=== PATIENT | female | born 1945 | race Caucasian/White ===

== ENCOUNTER 2016-12-26 17:52 | Inpatient (IN) | payer MEDICARE ==
[~2016-12-26 17:52] MED LIST: ISOVUE-370 76%-LOCM 1 ML ONE
[2016-12-26] MEDS ORDERED: Lorazepam 2 MG/ML VIAL ONE (18:00)
[2016-12-26 18:27] LABS: #Eosinphils 0.1 thou/uL (0.0-0.7); #Lymphocytes 0.7 thou/uL (1.20-3.40); #Monocytes 0.4 thou/uL (0.11-0.59); #Neutrophils 4.3 thou/uL (1.40-6.50); %Basophils 0.9 % (0.0-1.0); %Eosinophils 1.1 % (0.0-10.0); %Lymphocytes 12.9 % (21.0-51.0); Hematocrit 40.5 % (36.0-47.0); Mean Platelet Volume 6.6 fL (7.4-10.4); White Blood Cell (WBC) Count 5.5 thou/uL (4.8-10.8)
[2016-12-26 18:32] LABS: PTT 26.3 SEC (22.9-36.1); Prothrombin Time 13.4 SEC (12.0-14.7)
[2016-12-26 18:46] LABS: ALT (SGPT) 36 U/L (8-55); AST (SGOT) 39 U/L (5-34); Alkaline Phosphatase 106 U/L (40-150); Anion Gap 17 mmol/L (10-20); BUN (Urea Nitrogen) Less than 4 mg/dL (9.8-20.1); Bilirubin, Total 0.3 mg/dL (0.2-1.2); Calc. Creatinine Clearance 0 mL/min (70-130); Calcium 9.4 mg/dL (7.8-10.44); Carbon Dioxide 24 mmol/L (23-31); Chloride 87 mmol/L (98-107); Estimated GFR-MDRD Greater than 90; Globulin 2.8 g/dL (2.4-3.5); Protein, Total 7.3 g/dL (6.0-8.3)
--- NOTE | 2016-12-26 18:52 | CT ---
CT BRAIN WITHOUT CONTRAST 12/26/16 HISTORY: Seizure, altered mental status. FINDINGS: Comparison made with the exam of 12/18/14. No evidence of acute infarct, hemorrhage, midline shift or abnormal extra-axial fluid collections ar e seen. The ventricular size is stable and the basilar cisterns patent. Bilateral basal ganglia calc ifications again seen. The bony calvarium is intact. The visualized paranasal sinuses and mastoid ai r cells are well aerated. IMPRESSION: No CT evidence of acute intracranial process. Discussed over the telephone with ER physician Dr. Lucio Munoz at 6:28 p.m. POS: [facility]
--- NOTE | 2016-12-26 19:21 | CT ---
EXAM: CT ANGIOGRAM OF THE HEAD CT ANGIOGRAM OF THE NECK CT PERFUSION 12/26/16 COMPARISON: CT angiogram neck 12/21/14. TECHNIQUE: CT angiogram of the head and neck are performed in the axial plane. Sagittal and coronal three dimen sional reformatted images are submitted for interpretation. CT perfusion imaging is performed in the axial plane. FINDINGS: POSTCONTRAST HEAD CT: Cortical pro-white matter differentiation appears to be preserved. There is age appropriate atrophy . Chronic small vessel ischemic changes of the white matter are identified. No evidence of hydroceph alus. The visualized aerodigestive tract is patent. No definite mucosal abnormality. Epiglottis has a norm al caliber. Pre-epiglottic fat is preserved. Symmetric attenuation of the sternocleidomastoid muscles. Symmetric attenuation of the parotid and s ubmandibular glands. Thyroid gland is unremarkable. Varying degrees of central canal stenosis and foraminal narrowing on the basis of degenerative hirsch e. Evaluation is limited by technique. Chronic change in lung apices are noted. Upper mediastinum is unremarkable. CT ANGIOGRAM: There is atherosclerosis of the aortic arch. RIGHT CAROTID: The right carotid artery origin is unremarkable. The right common carotid artery, carotid bifurcatio n, have appropriate enhancement and luminal diameter. There is short segment critical stenosis invol ving the right carotid bifurcation. Distal to the stenosis, there is a markedly diminutive right int ernal carotid artery, similar to the previous examination. LEFT CAROTID: The left carotid artery origin has appropriate enhancement and luminal diameter. There is atheroscle rotic disease without significant stenosis in the left common carotid artery and carotid bifurcation . Based on NASCET criteria, there is no significant stenosis of the left internal carotid artery. Ev aluation is slightly limited by motion degradation. Atherosclerotic plaque is identified. The right vertebral artery is patent at its origin and throughout its course in the neck. The origin of the left vertebral artery appears to have severe stenosis. The proximal and mid left vertebral a rtery are somewhat diminutive with short segments of moderate stenosis. There is lack of contrast in the left vertebral artery at approximately the C5 level suggesting short segment severe stenosis. R ight vertebral artery is dominant. There is redemonstration of severe stenosis involving the origin of the left subclavian artery. Additional severe stenosis is noted at the origin of the left vertebr al artery. There is suggestion of moderate stenosis involving the right subclavian artery. CT ANGIOGRAM OF THE HEAD: The diminutive right internal carotid artery appears to have significant stenosis with questionable occlusion in the distal cavernous segment. However, the right paraclinoid segment and right carotid terminus appear to have appropriate enhancement and luminal diameter. These vessels may be supplied by an anterior communicating artery as well as posterior communicating artery. The right and left M1 segments appear to have symmetric enhancement and luminal diameter. The right A1 segment is diminut mannie, likely congenital. Proximal A2 segments are unremarkable. Proximal MCA branches are unremarkabl e. Note, there does appear to be overall decrease in vessels along the posterior left Sylvian region and posterior left temporal region. Left and right PICC artery origins are unremarkable. Both vertebral arteries supply a normal appeari ng basilar artery. The left and right P1 segments have symmetric enhancement and luminal diameter. CT PERFUSION: There is no evidence of an increased mean transit time in the left MCA distribution. There is no dexter dence of decreased blood flow or decreased blood volume. IMPRESSION: 1. Significant stenosis involving the carotid and vertebral arteries as detailed above. The deg ree of stenosis is similar to the examination from 12/21/14. Additional arthrosclerotic disease in th e subclavian artery is noted. 2. Significant stenosis of the distal right cavernous carotid artery; however, the right paracl inoid segment of the right M1 segment appears to have appropriate luminal diameter enhancement likel y due to collateral flow from a patent anterior communicating artery and posterior communicating art inderjit. 3. Decrease in the overall vessels in the left MCA distribution. However, there is no CT perfus ion evidence of ischemia or completed infarct. Further interrogation with brain MRI utilizing diffus ion weighted imaging may be beneficial. 4. Results of the study discussed with Dr. Munoz, 12/26/16 at 6:52 p.m. Code CR POS: [facility]
[2016-12-26 19:45] LABS: Bilirubin Negative (Negative); Blood, Urine Negative (Negative); Glucose, Urine (Dipstick) Negative (Negative); Ketone, Urine Negative (Negative); Nitrite Negative (Negative); Protein, Urine (Dipstick) Negative (Neg-Trace); Urobilinogen 0.2 mg/dL (0.2-1.0)
[2016-12-26 19:55] LABS: Amphetamine Not Detected (NotDetected); Methadone Not Detected (NotDetected); Methamphetamine Not Detected (NotDetected)
[2016-12-26] MEDS ORDERED: Fosphenytoin Sodium 1,500 MG in Sodium Chloride 0.9% 50 ML IVPB ONE (20:15)
[2016-12-26] MEDS ORDERED: DOPamine 400 MG/D5W 250 ML 0 ML ONE (23:11)
[2016-12-26] MEDS ORDERED: Norepinephrine 8 MG/0.9% NS 250 ML ONE (23:42)
[2016-12-27] MEDS ORDERED: Ondansetron ODT 4 MG TAB SL PRN (00:25)
[2016-12-27] MEDS ORDERED: Acetaminophen 325 MG TAB PO PRN (00:25)
[2016-12-27] MEDS ORDERED: Ondansetron HCl/PF 4 MG/2 ML Vial IVP PRN (00:25)
[2016-12-27] MEDS ORDERED: Norepinephrine 8 MG/250 ML BAG IVPB PRN (00:28)
[2016-12-27] MEDS ORDERED: Sodium Chloride 0.9% 1,000 ML IV SCH ×3 (00:30→15:45)
[2016-12-27] MEDS ORDERED: Ondansetron HCl/PF 4 MG/2 ML Vial SLOW IVP PRN (00:31)
[2016-12-27] MEDS ORDERED: Insulin Regular 300 UNITS/3 ML VIAL SC PRN (00:44)
[2016-12-27] MEDS ORDERED: Dextrose 5% in Water 1,000 ML IV PRN (00:44)
[2016-12-27] MEDS ORDERED: Dextrose 50% Abboject 50 ML SYRINGE IVP PRN (00:44)
[2016-12-27 01:02] VITALS: BMI 21.4
[2016-12-27 04:10] LABS: #Lymphocytes 1.1 thou/uL (1.20-3.40); #Monocytes 1.1 thou/uL (0.11-0.59); #Neutrophils 8.6 thou/uL (1.40-6.50); %Basophils 0.4 % (0.0-1.0); %Eosinophils 0.2 % (0.0-10.0); %Lymphocytes 9.9 % (21.0-51.0); %Monocytes 9.7 % (0.0-10.0); Hematocrit 41.5 % (36.0-47.0); Red Blood Cell (RBC) Count 4.41 mill/uL (4.20-5.40); White Blood Cell (WBC) Count 10.8 thou/uL (4.8-10.8)
[2016-12-27 04:34] LABS: ALT (SGPT) 45 U/L (8-55); AST (SGOT) 61 U/L (5-34); Alkaline Phosphatase 92 U/L (40-150); Anion Gap 14 mmol/L (10-20); BUN (Urea Nitrogen) Less than 4 mg/dL (9.8-20.1); Bilirubin, Total 0.5 mg/dL (0.2-1.2); Calc. Creatinine Clearance 78 mL/min (70-130); Calcium 8.2 mg/dL (7.8-10.44); Carbon Dioxide 19 mmol/L (23-31); Chloride 99 mmol/L (98-107); Estimated GFR-MDRD Greater than 90; Globulin 2.6 g/dL (2.4-3.5); Protein, Total 6.6 g/dL (6.0-8.3)
[2016-12-27] MEDS: Levothyroxine Sodium 125 MCG TAB PO SCH (05:04)
[2016-12-27 07:04] LABS: Hemoglobin A1c 5.1 % (4.0-6.0)
[2016-12-27 07:09] LABS: Troponin I 0.118 ng/mL (< 0.028)
--- NOTE | 2016-12-27 07:19 | HP ---
REASON FOR ADMISSION: Seizures. HISTORY OF PRESENT ILLNESS: This is a pleasant 71-year-old female with a history of multiple medica l problems to include anxiety, hyponatremia, and diabetes. She also has a history of seizures and t his has been taken care of by Dr. Parish. The family is at bedside and the reason she was brought in was, the patient became confused and shor tly after that she started having episodes, where she could not talk when her family was asking the question. She did not have loss of bowel or bladder. Apparently, she has 1-2 seizures a month acco rding to the family. She has never seen a urologist according to the family and states that Dr. Abhi alex diagnosed her seizures and has been taking care of that. CVA was ruled out upon evaluation in e emergency room. Unfortunately, the patient's blood pressure was low in the 80s despite having IV fluid challenge and therefore, a Levophed drip had to be initiated. She will be transferred to ICU for further care. PAST MEDICAL HISTORY: 1. Hyponatremia. 2. General anxiety disorder. 3. Bilateral conjunctivitis. 4. Diabetes. 5. Hypotension. 6. Hyperlipidemia. 7. Allergies. 8. GERD. 9. Osteoporosis. 10. Hypothyroidism. 11. She also had a history of congestive heart failure. ALLERGIES: SULFA. MEDICATIONS: Full list of her medication is unknown. FAMILY HISTORY: Noncontributory. SOCIAL HISTORY: She does not smoke. She does not drink alcohol. REVIEW OF SYSTEMS: General: Admits to weakness, fatigue, no fever or chills. HEENT: No diplopia, amaurosis fugax, tinnitus, sore throat, or hoarseness. Cardiovascular: No chest, arm, or back irina n. Pulmonary: No PE, cough, or hemoptysis. Gastrointestinal: No GI bleed, constipation, diarrhea . Genitourinary: No dysuria, nocturia, oliguria, or polyuria. Endocrine: No polyphagia, polydips ia, or heat or cold intolerance. Musculoskeletal: Admits to arthralgias. No lupus or myopathy. N eurologic: Does have history of CVA and history of seizure. All systems are negative. PHYSICAL EXAMINATION: GENERAL: Pleasant female, who appears to be in distress. She is awake, alert, and oriented to pers on, place, and time. VITAL SIGNS: Her blood pressure is in the 80s, Levophed was just started. Her pulse is 70. She is afebrile. HEENT: PERRLA. Sclerae not icteric with no arcus senilis or xanthelasma. NECK: Supple with no increased JVP or carotid bruit. Carotid had good upstroke with no thyromegaly . COR: Regular rate and rhythm. CHEST: Symmetrical. Clear to auscultation and percussion. ABDOMEN: Soft, nontender with normoactive bowel sounds. No bruit or organomegaly. EXTREMITIES: No edema or cyanosis. She had palpable pedal pulses. SKIN: There is no evidence of ulcers, lesion, or rash. NEURO: She is awake, alert, and oriented to person, place, and time. LABORATORY DATA: Her lab showed a normal CBC. Her sodium is 124. Her glucose is 120. Her prolact in is 70.5. Her UA is negative. Her CT is negative of her brain. She also had a CTA, which showed no CVA. It did show significant stenosis involving the carotid and vertebral arteries, no change f rom 2014. ASSESSMENT: 1. Seizures. 2. Hyponatremia. 3. Hypotension. 4. History of cerebrovascular accident. 5. Severe anxiety disorder. 6. Diabetes. 7. Hypothyroidism. 8. Depression. 9. Multiple medical problems. PLAN: 1. The patient will be admitted to ICU where (06:00) will be asked to see the patient in [facility] sultation. Also, neurologist was called to see the patient tomorrow morning. We will also order EE G. 2. We will continue Levophed to keep her systolic blood pressure greater than 90. 3. We will resume home medications once we are aware of those medications; however, I do not know i f she takes Xanax and something for sleep, but will stop, would not resume that at this time. 4. We will give Zofran p.r.n. for nausea. 5. We will follow up with lab tomorrow morning. All questions answered to patient and family's satisfaction. This is FABIAN Miller, dictating for Renny Parish M.D.
--- NOTE | 2016-12-27 07:48 | RAD ---
CHEST 1 VIEW: HISTORY: Chest pain. COMPARISON: 12/22/14. FINDINGS: Cardiac silhouette is magnified by projection. Pulmonary vasculature is unremarkable. Mediastinum is midline with aortic calcification and a multileaf left subclavian cardiac electronic device. Mil d atelectasis at the right lung base is less pronounced than on the prior exam. No lobar consolidat ion or pneumothorax are apparent. residential monitor leads overlie the chest. IMPRESSION: No active cardiopulmonary abnormalities are demonstrated. POS: [facility]
[2016-12-27 08:15] LABS: Troponin I 0.145 ng/mL (< 0.028)
[2016-12-27] MEDS ORDERED: FLU VACC TS2017-18 (>65YR) 0.5 ML SYRINGE IM ONE (09:00)
[2016-12-27] MEDS: Sodium Chloride 0.9% 1,000 ML IV SCH ×4 (09:04→14:27)
[2016-12-27] MEDS ORDERED: Multivitamins, Adult 10 ML in Sodium Chloride 0.9% 500 ML IV SCH ×2 (11:30)
[2016-12-27] MEDS: Lorazepam 2 MG/ML VIAL SLOW IVP PRN (11:43)
--- NOTE | 2016-12-27 12:12 | CON ---
DATE OF CONSULTATION: 12/27/2016 NEUROLOGY CONSULTATION REFERRING PHYSICIAN: Dr. Parish. IMPRESSION: Recurrent seizures with subtherapeutic Dilantin. PLAN: Dilantin 300 mg per day. HISTORY: Ms. Sorensen is a 71-year-old woman who was admitted after having a seizure yesterday. She r eportedly has had seizures in the past, the last one occurred about 2 weeks ago. Her Dilantin level was subtherapeutic. She had a CT scan of the brain done last night which was unremarkable. She tiwari s otherwise not had any further seizure activity. PHYSICAL EXAMINATION: VITAL SIGNS: Show blood pressure of 85/46, pulse 77 and saturations 95%. NEUROLOGIC: Shows her to have fluent, clear speech, although she is incessantly talking and will no t cooperate in appropriate fashion. Face appeared to be symmetric. Tone appeared to be symmetric. No abnormal movements were seen. I agree with your plan of treatment.
[2016-12-27] MEDS: Thiamine HCl 200 MG/2 ML VIAL IM SCH (13:01)
[2016-12-27] MEDS ORDERED: Albumin 25% 25 GM/100 ML BOT IVPB SCH (14:54)
--- NOTE | 2016-12-27 17:09 | CON ---
DATE OF CONSULTATION: 12/27/2016 HISTORY OF PRESENT ILLNESS: Ms. Sorensen is a 71-year-old female with a history of seizure disorder. She has actually been in the ICU and I have seen her in the past with seizures. She has been hypotensive since admission and was placed on pressors in the emergency room. PAST MEDICAL HISTORY: 1. Remarkable for psychogenic polydipsia, anxiety, diabetes, lipid disorder, reflux disease, osteop orosis. 2. History of tobacco use. 3. History of daily beer drinking, but her says she does drink more than 2 to 3 beers a day . 4. History of severe anxiety. 5. History of lipid disorder. 6. History of intubation in the past, multiple times. 7. History of a . 8. Distant history of heavy alcohol and tobacco use. 9. History of multiple [facility] admissions in the past. There are no [facility]/psychiatrist notes in the ol d or new medical records to help me identify what her psychiatric diagnosis was. FAMILY HISTORY: Negative for lung disease at an early age. REVIEW OF SYSTEMS: Not reliably obtainable at this point in time. PHYSICAL EXAMINATION: VITAL SIGNS: Blood pressures are in the 80s for the most part, heart rate in the 70s. She is in si nus rhythm. HEENT: Pupils are equal. Sclerae are anicteric. She has pressured speech. NECK: Supple. She has no lymphadenopathy. LUNGS: She has equal and clear breath sounds. HEART: Regular rhythm. ABDOMEN: Soft and nontender. EXTREMITIES: Without asymmetry. LABORATORY DATA: White count 10.8, hemoglobin 13.8, and platelets 320. Sodium 128, potassium 4, ch loride 99, bicarbonate 19, BUN less than 4, creatinine 0.5, glucose 166, AST 61, ALT 45, albumin is 4. Urinalysis was unremarkable. No positive cultures are reported yet. IMPRESSION: 1. Hypotension with adrenal insufficiency, needs to be ruled out. 2. History of seizure with seizure disorder reportedly. 3. Mild hyponatremia, most likely psychogenic she has had. Sodium is as low as 117 back in 2015 maya pposedly drug-induced cause is also in the differential. PLAN: Continue supportive care. When she is off pressors, she can transfer out of the critical car e unit. Albumin will be added. She will continue with Valium. Cortisol has been ordered stat.
[2016-12-27] MEDS: ALPRAZolam 0.5 MG TAB PO SCH (19:46)
[2016-12-28] MEDS: Sodium Chloride 0.9% 1,000 ML IV SCH ×3 (04:30→23:30)
[2016-12-28 04:59] LABS: #Lymphocytes 0.6 thou/uL (1.20-3.40); #Monocytes 0.5 thou/uL (0.11-0.59); #Neutrophils 3.5 thou/uL (1.40-6.50); %Basophils 0.9 % (0.0-1.0); %Eosinophils 0.4 % (0.0-10.0); %Lymphocytes 12.4 % (21.0-51.0); %Monocytes 10.4 % (0.0-10.0); Hematocrit 34.6 % (36.0-47.0); Mean Platelet Volume 7.2 fL (7.4-10.4); Red Blood Cell (RBC) Count 3.65 mill/uL (4.20-5.40); White Blood Cell (WBC) Count 4.6 thou/uL (4.8-10.8)
[2016-12-28 05:16] LABS: Anion Gap 11 mmol/L (10-20); BUN (Urea Nitrogen) Less than 4 mg/dL (9.8-20.1); Calc. Creatinine Clearance 112 mL/min (70-130); Calcium 7.8 mg/dL (7.8-10.44); Carbon Dioxide 25 mmol/L (23-31); Chloride 96 mmol/L (98-107); Dilantin 39.1 ug/mL (10.0-20.0); Estimated GFR-MDRD Greater than 90
[2016-12-28] MEDS ORDERED: Potassium Chloride 20 MEQ in Premix Bag 1 BAG IVPB SCH (06:00)
[2016-12-28] MEDS: Levothyroxine Sodium 125 MCG TAB PO SCH (06:24)
[2016-12-28] MEDS ORDERED: Aripiprazole 10 MG TAB PO SCH (08:15)
[2016-12-28] MEDS: Multivitamins, Adult 10 ML in Sodium Chloride 0.9% 500 ML IV SCH ×2 (11:05)
[2016-12-28] MEDS: Folic Acid 1 MG TAB PO SCH (11:06)
[2016-12-28] MEDS: ALPRAZolam 0.5 MG TAB PO SCH ×2 (11:06→20:16)
[2016-12-28] MEDS: Thiamine HCl 200 MG/2 ML VIAL IM SCH (11:07)
--- NOTE | 2016-12-28 11:18 | PQF ---
JV CHASE MICHAEL E MD [id number] CLINICAL DOCUMENTATION IMPROVEMENT CLARIFICATION FORM: ICD-10 Updated PLEASE DO AN ADDENDUM TO THE PROGRESS NOTE WITH ANY DOCUMENTATION UPDATES OR ADDITIONS AND CARRY THROUGH TO DC SUMMARY. THANK YOU. DATE: 12-28-16 ATTN: DR. VIDAL CRUZ Please exercise your independent, professional judgment in responding to the clarification form. Clinical indicators are provided on the bottom of this form for your review Please check appropriate box: [ x ] Demand Ischemia [ ] NSTEMI type II [ ] Unable to determine [ ] Insignificant lab value For continuity of documentation, please document condition throughout progress notes and discharge summary. Thank You. CLINICAL INDICATORS - SIGNS / SYMPTOMS/ LABS are present in the medical record: Lab Results: TROPONIN I 10-8 @ 0400 0.118 @ 0643 0.145 @ 0946 0.130 RISK FACTORS ER: HYPONATREMIA W/ SEIZURES - PROLONGED POSTICTAL PHASE BP SBP: 54 - 154 DBP 40 - 112 H&P: HYPOTENSION TREATMENT CPOE: Series of electrolyte labs ICU/CARDIAC MONITORING (12-26 - TO DATE) IVF W/ MULTIVITAMINS AND NS LEVOPHED TO KEEP SBP >90 THANK YOU, RAF[employer] (This form is maintained as a part of the permanent medical record) 2015 [employer]. All Rights Reserved Rafia Sexton RN, BS [email or web address]
--- NOTE | 2016-12-28 12:32 | PRG ---
DATE OF SERVICE: 12/28/2016 SUBJECTIVE: Ms. Sorensen has no complaints today. She says that she is feeling better. PHYSICAL EXAMINATION: VITAL SIGNS: Her vital signs have been stable. She is afebrile, heart rate 80, respiratory rate 21 , and blood pressure 107/70. LUNGS: Clear. HEART: Regular rhythm. ABDOMEN: Soft. LABORATORY DATA: White count 4.6, hemoglobin 11.7, platelets 196,000. Sodium 129, potassium 2.7, chloride 96, bicarb 25, BUN less than 4, creatinine less than 0.4. IMPRESSION: 1. Seizures with an underlying seizure disorder. 2. Hyponatremia, which I suspect it is an incidental finding and not the cause of her seizures. Sh mae has a history of psychogenic polydipsia. She is stable to transfer out of the Critical Care Unit in my opinion. I will sign off.
[2016-12-28] MEDS: Lorazepam 2 MG/ML VIAL SLOW IVP PRN ×2 (14:09→23:10)
[2016-12-28] MEDS: Aripiprazole 10 MG TAB PO SCH (20:17)
[2016-12-29] MEDS: Lorazepam 2 MG/ML VIAL SLOW IVP PRN (03:18)
[2016-12-29 04:29] LABS: #Lymphocytes 0.9 thou/uL (1.20-3.40); #Monocytes 0.6 thou/uL (0.11-0.59); #Neutrophils 8.6 thou/uL (1.40-6.50); %Basophils 0.1 % (0.0-1.0); %Eosinophils 0.4 % (0.0-10.0); %Lymphocytes 8.7 % (21.0-51.0); %Monocytes 6.3 % (0.0-10.0); Hematocrit 35.1 % (36.0-47.0); Red Blood Cell (RBC) Count 3.69 mill/uL (4.20-5.40); White Blood Cell (WBC) Count 10.2 thou/uL (4.8-10.8)
[2016-12-29] MEDS: Levothyroxine Sodium 125 MCG TAB PO SCH (05:24)
[2016-12-29 05:46] LABS: Anion Gap 13 mmol/L (10-20); BUN (Urea Nitrogen) Less than 4 mg/dL (9.8-20.1); Calc. Creatinine Clearance 107 mL/min (70-130); Calcium 8.3 mg/dL (7.8-10.44); Carbon Dioxide 27 mmol/L (23-31); Chloride 89 mmol/L (98-107); Estimated GFR-MDRD Greater than 90
[2016-12-29] MEDS ORDERED: Potassium Chloride 20 MEQ in Sodium Chloride 0.9% 250 ML 250 ML IVPB SCH (07:00)
[2016-12-29] MEDS: ALPRAZolam 0.5 MG TAB PO SCH ×2 (08:11→20:30)
[2016-12-29] MEDS: Folic Acid 1 MG TAB PO SCH (08:12)
--- NOTE | 2016-12-29 08:12 | PRG ---
DATE OF SERVICE: 12/29/2016 The patient is awake. She is ready to go home. Her is ready for her to go home also, and s he has been \\\\"cantankerous\\\\". PHYSICAL EXAMINATION: GENERAL: She is awake, alert, and oriented. She is on IV fluids. VITAL SIGNS: Her blood pressure is 108/70, pulse 90, respirations 18. She is afebrile. NECK: Supple with no increased JVP or carotid bruit. Carotid had good upstroke with no thyromegaly . COR: Regular rate and rhythm. CHEST: Symmetrical. Clear to auscultation and percussion. ABDOMEN: Soft, nontender with normoactive bowel sounds. There is no bruit or organomegaly. EXTREMITIES: No edema or cyanosis. She had palpable pedal pulses. SKIN: There is no evidence of ulceration lesion, or rash. NEUROLOGIC: She is awake, alert, and oriented to person, place, and time. LABORATORY DATA: Her CBC showed white blood cells 10.2, her H\\T\\H is 11.9 and 35.1, her platelet is 192. Her sodium remains low at 126, which is worse than yesterday. Her potassium is still low at 2.5. ASSESSMENT: 1. Seizures. 2. Hyponatremia. 3. History of psychogenic polydipsia. 4. Hypotension, improved. 5. Hypokalemia. 6. General anxiety disorder. PLAN: 1. We will check a CMP in the morning. 2. We will replace potassium with K-riders. 3. We will check a Dilantin level in the morning. 4. We will hold Dilantin. 5. We will ask physical therapy to evaluate and encourage the patient to get out of bed. I have spoken with the patient and the family at length. Will not be able to go home until her sodi um is closer to 130. The patient verbalized understanding and all questions answered to her satisfa ction.
[2016-12-29] MEDS: Thiamine HCl 200 MG/2 ML VIAL IM SCH (13:09)
[2016-12-29] MEDS: Multivitamins, Adult 10 ML in Sodium Chloride 0.9% 500 ML IV SCH ×2 (13:10)
[2016-12-29] MEDS: Sodium Chloride 0.9% 1,000 ML IV SCH ×2 (16:57→23:05)
[2016-12-29] MEDS: Aripiprazole 10 MG TAB PO SCH (20:29)
[2016-12-30] MEDS: Lorazepam 2 MG/ML VIAL SLOW IVP PRN (03:51)
[2016-12-30 06:01] LABS: ALT (SGPT) 25 U/L (8-55); AST (SGOT) 30 U/L (5-34); Alkaline Phosphatase 86 U/L (40-150); Anion Gap 13 mmol/L (10-20); BUN (Urea Nitrogen) Less than 4 mg/dL (9.8-20.1); Bilirubin, Total 0.6 mg/dL (0.2-1.2); Calc. Creatinine Clearance 96 mL/min (70-130); Calcium 8.7 mg/dL (7.8-10.44); Carbon Dioxide 30 mmol/L (23-31); Chloride 91 mmol/L (98-107); Estimated GFR-MDRD Greater than 90; Globulin 2.4 g/dL (2.4-3.5); Protein, Total 6.1 g/dL (6.0-8.3)
[2016-12-30] MEDS: Levothyroxine Sodium 125 MCG TAB PO SCH (06:17)
[2016-12-30] MEDS: Sodium Chloride 0.9% 1,000 ML IV SCH ×2 (06:18→15:53)
[2016-12-30] MEDS: ALPRAZolam 0.5 MG TAB PO SCH ×2 (07:50→20:21)
[2016-12-30] MEDS: Folic Acid 1 MG TAB PO SCH (07:50)
[2016-12-30] MEDS: Potassium Chloride 20 MEQ TAB PO SCH ×3 (08:50→20:21)
[2016-12-30] MEDS: Multivitamins, Adult 10 ML in Sodium Chloride 0.9% 500 ML IV SCH ×2 (08:51)
[2016-12-30] MEDS: Aripiprazole 10 MG TAB PO SCH (20:21)
[2016-12-31] MEDS: Lorazepam 2 MG/ML VIAL SLOW IVP PRN (01:28)
[2016-12-31] MEDS: Sodium Chloride 0.9% 1,000 ML IV SCH ×3 (01:36→20:43)
[2016-12-31 06:12] LABS: Anion Gap 11 mmol/L (10-20); BUN (Urea Nitrogen) Less than 4 mg/dL (9.8-20.1); Calc. Creatinine Clearance 99 mL/min (70-130); Calcium 8.7 mg/dL (7.8-10.44); Carbon Dioxide 32 mmol/L (23-31); Chloride 94 mmol/L (98-107); Dilantin 9.6 ug/mL (10.0-20.0); Estimated GFR-MDRD Greater than 90
[2016-12-31] MEDS: Levothyroxine Sodium 125 MCG TAB PO SCH (06:13)
[2016-12-31] MEDS: Folic Acid 1 MG TAB PO SCH (08:10)
[2016-12-31] MEDS: ALPRAZolam 0.5 MG TAB PO SCH ×2 (08:10→20:31)
[2016-12-31] MEDS: Multivitamins, Adult 10 ML in Sodium Chloride 0.9% 500 ML IV SCH ×2 (08:26)
[2016-12-31] MEDS: Potassium Chloride 20 MEQ TAB PO SCH ×2 (08:33→20:31)
[2016-12-31] MEDS: Potassium Chloride 20 MEQ in Premix Bag 1 BAG IVPB SCH ×2 (08:34→10:40)
--- NOTE | 2016-12-31 08:57 | PRG ---
DATE OF SERVICE: 12/31/2016 SUBJECTIVE: The patient had a good night. She is quite upset this morning as I told her she cannot go home as her potassium is still critically low at 2.6. I even spoke with Yong and the patient telling them all of the risk of low potassium and if she goes home, this could be the consequences. I did also let her know that some of her medications she is on cause low potassium. I did also go over with the patient and that she can no longer be drinking \\\\"2 beers a day plus wine, pl us drinking all of this water\\\\". The is very adamant that this is not why she has low sodi um. Upon evaluation, she is awake. She is agitated. She is being very rude and being disrespectfu l, telling me to leave the room. PHYSICAL EXAMINATION: VITAL SIGNS: Blood pressure is 92/64, pulse 88, respirations 16, temperature 97.6. NECK: Supple with no increased JVP or carotid bruit. Carotid had good upstroke with no thyromegaly . COR: Regular rate and rhythm. CHEST: Symmetrical. Clear to auscultation and percussion. ABDOMEN: Soft, nontender with normoactive bowel sounds. There is no bruit or organomegaly. EXTREMITIES: No edema or cyanosis. She had palpable pedal pulses. SKIN: There is no evidence of ulcer lesion, or rash. NEUROLOGIC: She is awake, alert, and oriented to person, place, and time. LABORATORY: Sodium 134, potassium 2.7. BNP is 799. However, there is no inclination of congestive heart failure on examination. ASSESSMENT: 1. General anxiety disorder. 2. Hyponatremia, improved. 3. Hypokalemia. 4. History of seizures. PLAN: I spoke at length again, as mentioned above, to the and the patient. The patient aga in is very ugly, again telling me to leave the room and that \\\\"I can have her \\\\" and said t hat the also said that he does not believe that all these problems that I told him would cau se her low sodium, that Dr. Parish told him that she could drink this much in the past?. We will keep the patient here and replenish her potassium by increasing her potassium oral dose. I have also spoken with the patient at length regarding limiting her fluid intake. According to the mirella lopez she is not following her limitations on her fluid restriction. She is also not allowing us to check her blood sugars as well. The patient was told she could leave AMA if she felt like she need ed to do so, but again I did let her know about to warnings of having a low potassium. We will foll ow up with lab in the morning. We will discontinue her Abilify, will change her Celexa 20 mg daily and start her on Seroquel 50 mg at night per Dr. Parish recommendations.
[2017-01-01] MEDS: Levothyroxine Sodium 125 MCG TAB PO SCH (04:51)
[2017-01-01 06:24] LABS: ALT (SGPT) 39 U/L (8-55); AST (SGOT) 48 U/L (5-34); Alkaline Phosphatase 102 U/L (40-150); Anion Gap 12 mmol/L (10-20); BUN (Urea Nitrogen) Less than 4 mg/dL (9.8-20.1); Bilirubin, Total 0.5 mg/dL (0.2-1.2); Calc. Creatinine Clearance 88 mL/min (70-130); Calcium 9.9 mg/dL (7.8-10.44); Carbon Dioxide 29 mmol/L (23-31); Chloride 95 mmol/L (98-107); Estimated GFR-MDRD Greater than 90; Globulin 2.8 g/dL (2.4-3.5); Protein, Total 6.9 g/dL (6.0-8.3)
[2017-01-01 08:18] VITALS: BP 138/92; TEMP 98.3
[2017-01-01] MEDS ORDERED: Potassium Chloride 20 MEQ TAB PO SCH (09:00)
--- NOTE | 2017-01-01 09:11 | DIS ---
CHIEF COMPLAINT ON ADMISSION: Seizure activity, hyponatremia and anxiety. History and physical have been dictated. I will resume from there. HOSPITAL COURSE: The patient was admitted to ICU where IV fluid supplementation with sodium was beg un. The patient exhibited altered mental status in ICU with extreme agitation and confabulation, co nstant talking nonsensical. Her vital signs remained low systolically in the ICU requiring Levophed supplementation. Dr. Riggs saw the patient in consultation and agreed with the treatment which i ncluded coverage for what may be DTs, i.e., thiamine, folate, Ativan p.r.n. A central line was plac ed because of low blood pressure and to monitor that. The patient slowly began to improve. Dr. Jorge garcia also saw the patient in consultation and felt that the low sodium was probably psychogenic polydi psia. Her Dilantin level was noted to be subtherapeutic, which was an obvious reason for her seizur e activity. She was loaded with Dilantin which then quickly became toxic requiring it to be held fo r the remainder of the hospitalization. Adrenal insufficiency was ruled out with a prolactin that c jacqueline back at 70 with a cortisol level that came back at 19. It was noted that her prolactin level wa s elevated at 70.75. The high prolactin was confirmatory of prior seizure activity. During the acu te phase of her initial hospitalization, she had indeterminate elevated troponins. The patient's so dium was slow to respond to fluid restriction and normal saline IV hydration becoming 128 on 017 and 129 on 12/28/2016, becoming 131 to 134 prior to discharge, the patient was placed on Abilify for her altered mental status and to calm her severe anxiety. This resulted in severe drops in her potassium level which failed to respond until Abilify was discontinued. On 12/28/2016 she was much more alert, able to answer questions blood pressure was up to 106/75. She was transferred out of [facility] to a medical bed and as mentioned previously, Dilantin level become toxic at 39. The Dilantin wa s then held. We kept supplementing her potassium in an effort to get that up. There was no further seizure activity noted. By 12/30/2016 she continued to feel much improved, potassium has remained l ow because of Abilify and that has been discontinued. It was, however, discontinued later that day replaced with Seroquel 50 mg at bedtime. The patient also responded to the thiamine therapy and onc e the Abilify was discontinued her potassium level was 4.1 prior to discharge. On the day of discha rge, she is alert, agitated, but much more mentally with it and is stable to be discharged home. So dium level is now up to 132. The patient and her have both been argumentative about the tato ology of the sodium level be low, arguing that the beer and wine plus excessive water intake have no t contribute to this. We have continued to consumer credit counselor them on that and also she will be reminded to ta ke her Dilantin regularly so it will stay in a therapeutic level that will minimize the chance of se izures. Because there is an element of Wernicke's encephalopathy, we will continue the thiamine 100 mg daily, along with multiple vitamins daily. The Seroquel will be continued to help her with her sleep at night, her anxiety disorder and her depression. She medicates with alcohol to help control her anxiety. DISCHARGE DIAGNOSES: 1. Wernicke's encephalopathy. 2. Hyponatremia secondary to psychogenic polydipsia. 3. Seizure activity secondary to noncompliance with seizure medication and hyponatremia. 4. Severe anxiety disorder. 5. Subacute alcoholism. 6. Hypokalemia secondary to Abilify - corrected prior to discharge. PLAN: The patient will be as previously mentioned continual Seroquel 50 at bedtime, thiamine 100 mg daily, multiple daily vitamins. She will be encouraged to be given a Dilantin dose prior to discha rge and will be encouraged to continue 300 mg once a day for that. She is to follow up with Dr. Abhi alex in 1 week where electrolytes will be reassessed and Dilantin levels checked. She is discharged i n stable condition. The time needed to scan her chart, prepare for discharge, consumer credit counselor the patient and her and en dictate the discharge came to 35 minutes.
[2017-01-01] MEDS: Sodium Chloride 0.9% 1,000 ML IV SCH (09:26)
[2017-01-01] MEDS: ALPRAZolam 0.5 MG TAB PO SCH (09:26)
[2017-01-01] MEDS: Multivitamins, Adult 10 ML in Sodium Chloride 0.9% 500 ML IV SCH ×2 (09:26)
[2017-01-01] MEDS: Folic Acid 1 MG TAB PO SCH (09:26)
--- NOTE | 2017-01-01 10:30 | EEG ---
Referring Physician: Paige SULTANA EEG # [ [id number] TEST TYPE: ROUTINE PORTABLE INPATIENT REPORT: AN EEG USING THE INTERNATIONAL TEN-TWENTY SYSTEM OF ELECTRODE PLACEMENT WAS PERFORMED. The best waking background is a 8 hertz alpha frequency. No epileptiform features were seen. Muscle and movement artifact obscured portions of the record. Photic stimulation was unremarkable. IMPRESSION: THIS IS A NORMAL AWAKE EEG FOR AGE. Supervisor Grounds: KIAH Rabbit Dresser: [email or web address].[email or web address] [email or web address]
== END 2017-01-01 10:12 | disposition home health service (06) | DRG 101 ==
LOC: ERS 17:52 → CCU 23:45 → T4-A 12-28 12:24
PROVIDERS: ADMIT Family Medicine; ATTEND Family Medicine
DX: G40.909 Epilepsy, unspecified, not intractable, without status epilepticus (principal); I95.9 Hypotension, unspecified; I24.8 Other forms of acute ischemic heart disease; E87.1 Hypo-osmolality and hyponatremia; E51.2 Wernicke's encephalopathy; Z91.14 Patient's other noncompliance with medication regimen; R63.1 Polydipsia; E87.6 Hypokalemia; F32.9 Major depressive disorder, single episode, unspecified; F41.9 Anxiety disorder, unspecified; F10.20 Alcohol dependence, uncomplicated; T43.595A Adverse effect of other antipsychotics and neuroleptics, initial encounter; E78.5 Hyperlipidemia, unspecified; E03.9 Hypothyroidism, unspecified; M81.0 Age-related osteoporosis without current pathological fracture; Z88.2 Allergy status to sulfonamides
CPT/HCPCS: 0042T; 36415; 36416; 51701; 70450; 70496; 70498; 71010; 80048; 80053; 80185; 80306; 81003; 82533; 82553; 83036; 83880; 84146; 84443; 84484; 85025; 85610; 85730; 90471; 90682; 93005; 94760; 95816; 95819; 96361; 96365; 96375; A4216; A4353; G0008; G8978-GP-CL; G8979-GP-CL; G8980-GP-CL; G8996-GN-CI; G8997-GN-CH; J1265; J1815; J2060; J2405; J3411; J3480; J7050; P9047; Q2009; Q2036

== ENCOUNTER 2017-01-10 00:05 | Emergency (ER) | payer MEDICARE ==
[2017-01-10 01:41] LABS: #Basophils 0.1 thou/uL (0.0-0.2); #Eosinphils 0.1 thou/uL (0.0-0.7); #Monocytes 0.9 thou/uL (0.11-0.59); #Neutrophils 13.2 thou/uL (1.40-6.50); %Basophils 0.3 % (0.0-1.0); %Eosinophils 0.5 % (0.0-10.0); %Lymphocytes 6.8 % (21.0-51.0); %Monocytes 5.9 % (0.0-10.0); Hematocrit 36.4 % (36.0-47.0); Mean Platelet Volume 7.1 fL (7.4-10.4); Red Blood Cell (RBC) Count 3.82 mill/uL (4.20-5.40); White Blood Cell (WBC) Count 15.3 thou/uL (4.8-10.8)
[2017-01-10 02:04] LABS: CK (CPK) 119 U/L (29-168); Lipase 11 U/L (8-78)
[2017-01-10 02:09] LABS: Troponin I 0.031 ng/mL (< 0.028)
[2017-01-10 02:12] LABS: ALT (SGPT) 41 U/L (8-55); AST (SGOT) 36 U/L (5-34); Alkaline Phosphatase 113 U/L (40-150); Anion Gap 13 mmol/L (10-20); BUN (Urea Nitrogen) Less than 4 mg/dL (9.8-20.1); Bilirubin, Total 0.5 mg/dL (0.2-1.2); Calc. Creatinine Clearance 0 mL/min (70-130); Calcium 9.6 mg/dL (7.8-10.44); Carbon Dioxide 27 mmol/L (23-31); Chloride 92 mmol/L (98-107); Estimated GFR-MDRD Greater than 90; Globulin 2.6 g/dL (2.4-3.5); Protein, Total 6.8 g/dL (6.0-8.3)
[2017-01-10 03:40] LABS: Bilirubin Negative (Negative); Blood, Urine Negative (Negative); Glucose, Urine (Dipstick) Negative (Negative); Ketone, Urine Trace mg/dL (Negative); Nitrite Negative (Negative); Protein, Urine (Dipstick) Negative (Neg-Trace); Urobilinogen 0.2 mg/dL (0.2-1.0)
--- NOTE | 2017-01-10 08:58 | RAD ---
CH3EST 1 VIEW: HISTORY: Altered mental status. COMPARISON: Chest 1 view 05/22/14. FINDINGS: Lungs are without focal airspace consolidation, pneumothorax, or effusion. There is a nodular densi ty in the right upper lobe measuring 6 mm. Cardiac silhouette and mediastinal contours are similar. IMPRESSION: A 6 mm nodular density right upper lobe. This may be confluence of interstitial markings. Followup recommended. POS: [facility]
--- NOTE | 2017-01-10 11:45 | CT ---
PRELIMINARY REPORT/[facility]/EMERGENCY AFTER-HOURS PROCEDURE: EXAM: CT Head Without Intravenous Contrast EXAM DATE/TIME: Exam ordered 01/10/2017 1:57 AM CLINICAL HISTORY: 71 years old, female; Signs and symptoms; Other: Seizure; Patient HX: Recent dx of epilepsy. Witnessed sz's by . A\T\o on scene. Psych HX TECHNIQUE: Axial computed tomography images of the head/brain without intravenous contrast. COMPARISON: No relevant prior studies available. FINDINGS: Brain: Volume loss and chronic small vessel ischemic change. No hemorrhage. Ventricles: Unremarkable. No ventriculomegaly. Bones/joints: Unremarkable. No acute fracture. Soft tissues: Unremarkable. Sinuses: Unremarkable as visualized. No acute sinusitis. Mastoid air cells: Unremarkable as visualized. No mastoid effusion. IMPRESSION: No acute findings. Thank you for allowing us to participate in the care of your patient. Dictated and Authenticated by: Fadi Sarabia MD 01/10/2017 2:21 AM Central Time ([place] \T\ [place]) FINAL REPORT CT BRAIN WITHOUT CONTRAST: HISTORY: Epilepsy. COMPARISON: CT brain 12/26/16. FINDINGS/IMPRESSION: Findings and impression are concordant with the preliminary report. POS: [facility]
== END 2017-01-10 04:21 | disposition home or self-care (01) ==
LOC: ERS 00:05
DX: G40.909 Epilepsy, unspecified, not intractable, without status epilepticus (principal); I25.2 Old myocardial infarction; E11.9 Type 2 diabetes mellitus without complications; E03.9 Hypothyroidism, unspecified; E78.5 Hyperlipidemia, unspecified; F41.9 Anxiety disorder, unspecified; F32.9 Major depressive disorder, single episode, unspecified; Z79.899 Other long term (current) drug therapy
CPT/HCPCS: 36415; 70450; 71010; 80053; 80156; 80164; 80185; 81003; 82140; 82550; 82553; 83690; 84146; 84484; 85025; 93005

== ENCOUNTER 2017-06-28 20:37 | Inpatient (IN) | payer MEDICARE ==
[2017-06-28 21:05] LABS: #Basophils 0.1 thou/uL (0.0-0.2); #Eosinphils 0.1 thou/uL (0.0-0.7); #Lymphocytes 1.4 thou/uL (1.20-3.40); #Monocytes 0.5 thou/uL (0.11-0.59); #Neutrophils 4.8 thou/uL (1.40-6.50); %Eosinophils 1.2 % (0.0-10.0); %Lymphocytes 20.9 % (21.0-51.0); %Monocytes 6.9 % (0.0-10.0); %Neutrophils 69.9 % (42.0-75.0); Hemoglobin 15.1 g/dL (12.0-16.0); Mean Corpuscular HGB CONC 35.7 g/dL (32.0-36.0); Mean Corpuscular Hemoglobin 33.1 pg (27.0-31.0); Mean Corpuscular Volume 92.5 fl (81.0-99.0); Mean Platelet Volume 6.8 fL (7.4-10.4); Platelet Count 245 thou/uL (130-400); RBC Distribution Width 10.7 % (11.5-14.5); Red Blood Cell (RBC) Count 4.56 mill/uL (4.20-5.40); White Blood Cell (WBC) Count 6.8 thou/uL (4.8-10.8)
[2017-06-28 21:13] LABS: ALT (SGPT) 105 U/L (8-55); AST (SGOT) 98 U/L (5-34); Albumin 5.5 g/dL (3.4-4.8); Alkaline Phosphatase 152 U/L (40-150); Anion Gap 19 mmol/L (10-20); BUN (Urea Nitrogen) 9 mg/dL (9.8-20.1); Bilirubin, Total 0.3 mg/dL (0.2-1.2); CK (CPK) 93 U/L (29-168); Calc. Creatinine Clearance 0 mL/min (70-130); Calcium 10.3 mg/dL (7.8-10.44); Carbon Dioxide 24 mmol/L (23-31); Chloride 90 mmol/L (98-107); Estimated GFR-MDRD 86; Globulin 3.3 g/dL (2.4-3.5); Glucose 126 mg/dL (83-110); Potassium 4.1 mmol/L (3.5-5.1); Protein, Total 8.8 g/dL (6.0-8.3); Sodium 129 mmol/L (136-145)
--- NOTE | 2017-06-28 21:13 | RAD ---
CHEST ONE VIEW: HISTORY: Defibrillator fired four times at home. COMPARISON: 01/10/2017 FINDINGS: Left-sided transvenous defibrillator, unchanged position. There is atherosclerosis of the aorta. No rmal cardiac silhouette. Pulmonary vessels and hilum are normal. Costophrenic angles are clear. No consolidation or mass. No pneumothorax. No osseous abnormalities. IMPRESSION: Atherosclerosis. No acute cardiopulmonary process. POS: [facility]
[2017-06-28 21:21] LABS: CKMB 3.3 ng/mL (0-6.6); Troponin I 0.056 ng/mL (< 0.028)
[2017-06-28] MEDS ORDERED: Lorazepam 2 MG/ML VIAL ONE (22:26)
[2017-06-29 02:41] LABS: Troponin I 0.834 ng/mL (< 0.028)
[2017-06-29 05:09] LABS: Critical Call Chem Troponin I RESULT DECREASING; Troponin I 0.803 ng/mL (< 0.028)
[2017-06-29] MEDS ORDERED: Lorazepam 2 MG/ML VIAL ONE (05:41)
[2017-06-29] MEDS ORDERED: Lorazepam 2 MG/ML VIAL SLOW IVP PRN (06:45)
[2017-06-29] MEDS ORDERED: Ondansetron HCl/PF 4 MG/2 ML Vial IVP PRN (06:45)
[2017-06-29] MEDS ORDERED: Ondansetron ODT 4 MG TAB PO PRN (06:46)
[2017-06-29] MEDS ORDERED: Acetaminophen 325 MG TAB PO PRN (06:48)
[2017-06-29] MEDS: Sodium Chloride 0.9% 1,000 ML IV SCH (10:30)
[2017-06-29] MEDS: Lorazepam 2 MG/ML VIAL SLOW IVP PRN (11:14)
[2017-06-29] MEDS ORDERED: ALPRAZolam 0.5 MG TAB PO SCH (11:45)
--- NOTE | 2017-06-29 12:59 | ULT ---
COMPLETE ABDOMEN ULTRASOUND: INDICATION: Elevated LFTs. FINDINGS: Visualized proximal aspects of the abdominal aorta appear within normal limits. The remaining segmen ts were obscured by overlying bowel gas. The pancreas was poorly visualized as well. Visualized asp ects of the IVC were within normal limits. Visualized liver demonstrated no focal hepatic lesion. The spleen measured 8.3 cm. The gallbladder is surgically absent. The common bile duct measured 4.5 mm. The right kidney measured 10.2 cm in length and the left measured 8.7 cm in length. No definite foca l renal lesion or hydronephrosis is evident. IMPRESSION: 1. No acute abnormality. 2. Cholecystectomy. POS: [facility]
--- NOTE | 2017-06-29 14:15 | HP ---
REASON FOR ADMISSION: AICD firing. HISTORY OF PRESENT ILLNESS: This is a 71-year-old female with history of multiple medical problems t o include general anxiety disorder, alcohol use and history of AICD. She currently is confused right now and there is no family is here at bedside; however, according to the record, she presented [facility] after her AICD fired, the patient is confused. She is asking to go home. She denies any complaints and most of the history was obtained from old records. PAST MEDICAL HISTORY: 1. Hyponatremia. 2. General anxiety disorder. 3. Bilateral conjunctivitis. 4. Diabetes. 5. Hypertension. 6. Hyperlipidemia. 7. GERD. 8 Hypothyroidism. 9. History of congestive heart failure. 10. History of normal EEG in the past. 11. History of multiple [facility] admissions in the past for her psych condition. PAST SURGICAL HISTORY: 1. History of defibrillator. 2. History of cholecystectomy. 3. History of . ALLERGIES: SULFA. MEDICATIONS: Unknown. FAMILY HISTORY: Noncontributory. SOCIAL HISTORY: She does not smoke, but she does drink alcohol and continues to do so despite Dr. Paz lee and I have conversation with her history. PHYSICAL EXAMINATION: GENERAL: She is awake. She is confused. There is no family here. VITAL SIGNS: Her blood pressure is 105/50, pulse 90, respirations 20. NECK: Supple. No increased JVP or carotid bruit. Carotid upstroke, no thyromegaly. COR: Regular rate and rhythm. CHEST: Symmetrical. Clear to auscultation and percussion. ABDOMEN: Soft and nontender with normoactive bowel sounds. No bruit or organomegaly. EXTREMITIES: No edema or cyanosis. She had palpable pedal pulses. SKIN: There is no evidence of ulcer lesion, or rash. NEUROLOGIC: She is confused. LABORATORY DATA: Showed her normal CBC. Her sodium is 129. She did have elevated liver enzymes. ASSESSMENT: 1. Possible automatic implantable cardioverter-defibrillator firing. 2. Alcohol abuse. 3. Anxiety disorder. 4. Elevated liver enzymes. 5. Hyponatremia. PLAN: 1. Dr. Rubalcava will be asked to see the patient in consultation. Keep n.p.o. until seen by him. 2. We will add abdominal ultrasound for elevated liver enzymes. 3. We will continue normal saline at 75 mL an hour. 4. We will give Ativan 1 mg IV q.4 hours p.r.n. anxiety. 5. We will follow up with lab in the morning. 6. We will find her home medications and resume once we know. This is FABIAN Miller dictating a progress note for Renny Parish M.D.
[2017-06-29] MEDS: ALPRAZolam 1 MG TAB PO SCH ×2 (15:41→20:14)
[2017-06-29] MEDS: levETIRAcetam 500 MG TAB PO SCH (18:34)
--- NOTE | 2017-06-29 18:45 | CON-2 ---
DATE OF CONSULTATION: 06/29/2017 Dictated by Darcy Cam, nurse practitioner as scribe for Dr. Amanuel Mcnair. ELECTROPHYSIOLOGY CONSULTATION DATE OF ADMISSION: 06/28/2017 REFERRING PHYSICIAN: Veto Rubalcava M.D. REASON FOR CONSULTATION: Multiple defibrillator shocks and RV lead fracture. HISTORY OF PRESENT ILLNESS: Ms. Sorensen is a 71-year-old patient with multiple medical problems includ ing general anxiety disorder, alcohol use, hypothyroid disease, bipolar disorder, COPD, cardiogenic s hock, diabetes, nonischemic cardiomyopathy, cardiogenic syncope and a previously severely reduced EF of 10%-15%, which had subsequently improved to 60%-65% by our records in 2014. She presented to the hospital after receiving multiple shocks from her ICD. She was last seen at [facility] in 06/2014 and has not followed up since then. Interrogation of her device shows normal function until 01/2017 at which point the RV lead function. RV lead impedance richie to greater than 3000 ohms sudde nly. Since that time in mid 01/2017, the patient has spuriously received many spurious shocks for ov er 17 and noise from RV lead. Today, she reports she is feeling anxious. She perceives herself to h ave a fever. Reports she paranoid and is unable to report her home medication list accurately, but i s eager to have her ICD fixed. Her is at bedside during examination and is able to answer qu estions and active historian. PAST MEDICAL HISTORY: 1. Nonischemic dilated cardiomyopathy with previously severely reduced EF of 10%-15%, improved to 60 %-65% in 2015. 2. Inclusion of dual chamber defibrillator placed in 2010. 3. Bipolar disorder. 4. COPD. 5. Cardiogenic syncope. 6. Diabetes. 7. Hypothyroid disease. 8. Generalized anxiety disorder. 9. Bilateral conjunctivitis. 10. Hypertension. 11. Hyperlipidemia. 12. GERD. 13. Multiple [facility] admissions in the past for her mental illness conditions. PAST SURGICAL HISTORY: 1. Defibrillator implant in 2010. 2. Cholecystectomy. 3. . ALLERGIES: Include SULFA. MEDICATIONS: Brought in by her and records have been requested from her pharmacy; however, a ll are proving to be inaccurate and incomplete list, unsure of exactly what she is taking. SOCIAL HISTORY: Negative for tobacco, positive for alcohol consumption. REVIEW OF SYSTEMS: Twelve point review of systems was conducted and is negative except that listed i n HPI. PHYSICAL EXAMINATION: VITAL SIGNS: Most recent vital signs, 98.3 degrees Fahrenheit, pulse is 85, respirations 18, oxygen saturation 96% on room air, and blood pressure 132/71. GENERAL: Patient is awake and alert, but she is oriented to person, place, but not to time or situat ion. Her is at bedside. Patient is extremely anxious and worked up throughout examination a nd acting quite paranoid. NECK: Supple without jugular venous distention or carotid bruit. Thyroid is nonpalpable and there i s no lymphadenopathy. HEENT: Normocephalic, atraumatic. Sclerae are anicteric and rhythm. Oral mucosa is moist and pink. Poor dentition. CARDIAC: Heart rate is regularly regular without significant murmur or gallop. PMI is nondisplaced. LUNGS: Chest respirations are even and unlabored and clear to auscultation bilaterally. There are n o wheezes, crackles or rhonchi. ABDOMEN: Soft and nontender with positive bowel tones throughout. No tenderness or palpable masses. EXTREMITIES: Warm and dry to touch without clubbing, cyanosis or edema. INTEGUMENTARY: No open sores, lesions or rashes. Her device is palpable at the left infraclavicular fossa, quite high and lateral towards her axilla and up against her clavicle. She is a petite build . There are no signs of swelling, bruising, erosion or drainage. NEUROLOGIC: Patient is confused and agitated. DATABASE: Laboratory on 06/28/2017, WBC 6.8, hemoglobin 15.1, hematocrit 42.2. Sodium 129, potassiu m 4.1, chloride 90, carbon dioxide 24, BUN is 9, creatinine 0.67. AST is 98, ALT is 105, alkaline ph osphatase is 152. Serial troponins are being conducted initially 0.056, peaking at 0.834 and current ly trending down, most recently 0.803. CK and CK-MB have remained within normal limits. EKG and telemetry were all personally reviewed. The EKG on admission shows sinus tachycardia at a ra te of 110 beats per minute, QRS is narrow at 84 milliseconds, SC interval is 162 milliseconds and QTC is 433 milliseconds. A bedside telemetry strips were also reviewed showing a sinus rhythm and occas ional sinus tachycardia. Overall, rates are well controlled. Device interrogation, the patient has a Medtronic Virtuoso II DR dual chamber defibrillator, date of implant is 09/02/2010. Battery voltage is currently 2.63 and has reached DANGELO and is requiring genera tor change. Her atrial lead is Medtronic 5076 and impedance of 475 ohms. The amplitudes of pulse wi th 2.0 volt at 0.5 milliseconds. RV lead is Medtronic 6947, impedance is currently greater than 3000 Ohms and amplitude of pulse with a 2.0 volt at 0.6 milliseconds. Review of interrogation reveals no rmal lead functioning until mid 01/2017 at which point there is a very drastic increase in the lead i mpedance and patient began to receive spurious shocks for VF. She received a total of 14 shocks sin e 01/2017. Overall, generator has reached DANGELO and needs to be changed and RV lead is fractured. ASSESSMENT AND PLAN: 1. Right ventricular lead fracture with multiple spurious ICD discharges and shocks delivered to the patient. 2. ICD generator at elective replacement interval. 3. Altered mental status. PLAN: A long discussion was held with Ms. Sorensen and her . It is difficult to tell how orient ed Ms. Sorensen is with her state of anxiety and agitation. She can converse in some ways normally, but is very fixated and somewhat paranoid with small details. Her is at bedside. It was discus sed at length how her RV lead is fractured and then cause of her receiving inappropriate shocks since January. They feel it is related to the multiple falls that the patient has at home as a possible cause for the lead fracture. The patient and the usually both are in agreement with having g enerator change and new RV lead placed at the earliest convenience. At this time via the RV lead, VF and VT detection was disabled as well as the shocking capability. We will arrange for generator sandeep nge and a new RV lead placement. We discussed extraction of the chronic RV lead; however, this would need to be done in [place] is far too great a risk for Ms. Sorensen undergo at this time. We will pedro nue to monitor the patient for any signs of infection and as long as she is stable and her ar e still in agreement, we will proceed with a generator change and lead placement tomorrow. We will k eep the patient n.p.o. past midnight in the interim. Thank you for allowing us to participate in care of this patient. Please have Dr. Mcnair sign this rep ort, not myself. I am acting as scribe.
[2017-06-29] MEDS: Atorvastatin Calcium 20 MG TAB PO SCH (20:14)
[2017-06-29] MEDS ORDERED: ALPRAZolam 1 MG TAB PO SCH (21:00)
[2017-06-29] MEDS ORDERED: Temazepam 15 MG CAP PO SCH (21:00)
[2017-06-30] MEDS: Sodium Chloride 0.9% 1,000 ML IV SCH ×2 (01:01→11:47)
[2017-06-30 04:54] LABS: #Eosinphils 0.1 thou/uL (0.0-0.7); #Lymphocytes 1.6 thou/uL (1.20-3.40); #Monocytes 0.6 thou/uL (0.11-0.59); #Neutrophils 3.4 thou/uL (1.40-6.50); %Basophils 0.6 % (0.0-1.0); %Eosinophils 1.6 % (0.0-10.0); %Lymphocytes 28.1 % (21.0-51.0); %Neutrophils 58.7 % (42.0-75.0); Hemoglobin 13.5 g/dL (12.0-16.0); Mean Corpuscular HGB CONC 35.7 g/dL (32.0-36.0); Mean Corpuscular Hemoglobin 33.3 pg (27.0-31.0); Mean Corpuscular Volume 93.2 fl (81.0-99.0); Mean Platelet Volume 6.7 fL (7.4-10.4); Platelet Count 198 thou/uL (130-400); RBC Distribution Width 10.5 % (11.5-14.5); Red Blood Cell (RBC) Count 4.05 mill/uL (4.20-5.40); White Blood Cell (WBC) Count 5.9 thou/uL (4.8-10.8)
[2017-06-30] MEDS: Levothyroxine Sodium 125 MCG TAB PO SCH (05:15)
[2017-06-30 05:18] LABS: ALT (SGPT) 65 U/L (8-55); AST (SGOT) 61 U/L (5-34); Albumin 4.3 g/dL (3.4-4.8); Alkaline Phosphatase 110 U/L (40-150); Anion Gap 14 mmol/L (10-20); BUN (Urea Nitrogen) 5 mg/dL (9.8-20.1); Bilirubin, Total 0.7 mg/dL (0.2-1.2); Calc. Creatinine Clearance 72 mL/min (70-130); Calcium 8.9 mg/dL (7.8-10.44); Carbon Dioxide 24 mmol/L (23-31); Chloride 96 mmol/L (98-107); Dilantin 10.5 ug/mL (10.0-20.0); Estimated GFR-MDRD Greater than 90; Globulin 2.3 g/dL (2.4-3.5); Glucose 89 mg/dL (83-110); Protein, Total 6.6 g/dL (6.0-8.3); Sodium 131 mmol/L (136-145)
[2017-06-30 05:26] LABS: Potassium 2.9 mmol/L (3.5-5.1)
[2017-06-30] MEDS ORDERED: Potassium Chloride 20 MEQ TAB PO SCH (06:45)
[2017-06-30] MEDS ORDERED: Dextrose 5% in Water 1,000 ML IV PRN (07:51)
[2017-06-30] MEDS ORDERED: Insulin Regular 300 UNITS/3 ML VIAL SC PRN ×2 (07:51)
[2017-06-30] MEDS ORDERED: Dextrose 50% Abboject 50 ML SYRINGE IVP PRN (07:51)
[2017-06-30] MEDS ORDERED: Diazepam 5 MG TAB PO SCH (08:00)
[2017-06-30 08:43] LABS: #Eosinphils 0.1 thou/uL (0.0-0.7); #Lymphocytes 1.4 thou/uL (1.20-3.40); #Monocytes 0.7 thou/uL (0.11-0.59); #Neutrophils 5.9 thou/uL (1.40-6.50); %Basophils 0.4 % (0.0-1.0); %Eosinophils 0.9 % (0.0-10.0); %Lymphocytes 17.5 % (21.0-51.0); %Monocytes 8.7 % (0.0-10.0); %Neutrophils 72.6 % (42.0-75.0); Hemoglobin 16.5 g/dL (12.0-16.0); Mean Corpuscular HGB CONC 35.8 g/dL (32.0-36.0); Mean Corpuscular Hemoglobin 33.3 pg (27.0-31.0); Mean Platelet Volume 7.1 fL (7.4-10.4); Platelet Count 216 thou/uL (130-400); RBC Distribution Width 10.9 % (11.5-14.5); Red Blood Cell (RBC) Count 4.95 mill/uL (4.20-5.40); White Blood Cell (WBC) Count 8.1 thou/uL (4.8-10.8)
[2017-06-30] MEDS ORDERED: Potassium Chloride 20 MEQ, Admixture Fee 1 EACH in Sodium Chloride 0.9% 100 ML IVPB SCH (08:45)
[2017-06-30] MEDS ORDERED: Propofol 1,000 MG/100 ML VIAL IV ONE (08:51)
[2017-06-30] MEDS ORDERED: ALPRAZolam 0.5 MG TAB PO SCH (09:00)
[2017-06-30] MEDS ORDERED: CEFAZOLIN/Water 2 GM/20 ML SYRINGE ONE (09:03)
[2017-06-30] MEDS ORDERED: Lidocaine 1% (PF) 30 ML VIAL ONE (09:04)
[2017-06-30] MEDS ORDERED: PHENYLEPHRINE-NS 100 MCG/ML 10 ML SYRINGE ONE ×2 (10:43→15:54)
[2017-06-30] MEDS: Citalopram 20 MG TAB PO SCH (11:44)
[2017-06-30] MEDS: levETIRAcetam 500 MG TAB PO SCH ×2 (11:45→20:06)
[2017-06-30] MEDS: Diazepam 5 MG TAB PO SCH ×2 (11:48→20:06)
[2017-06-30] MEDS ORDERED: Bisacodyl 5 MG TAB PO PRN (11:49)
[2017-06-30] MEDS ORDERED: Silver Sulfadiazine 1% Cream 50 GM JAR TOP PRN (11:49)
[2017-06-30] MEDS ORDERED: Temazepam 15 MG CAP PO PRN (11:49)
[2017-06-30] MEDS ORDERED: traMADol HCl 50 MG TAB PO PRN (11:49)
[2017-06-30] MEDS ORDERED: Ondansetron HCl/PF 4 MG/2 ML Vial IVP PRN (11:49)
[2017-06-30] MEDS ORDERED: Bisacodyl 10 MG SUPP PR PRN (11:49)
[2017-06-30] MEDS ORDERED: diphenhydrAMINE 25 MG CAP PO PRN (11:49)
[2017-06-30] MEDS ORDERED: Nitroglycerin 0.4 MG TAB (25 Tab Bottle) SL PRN (11:49)
[2017-06-30] MEDS ORDERED: Mag-Al 1200 mg/1200 mg/30 ML UDCUP PO PRN (11:49)
[2017-06-30] MEDS ORDERED: Acetaminophen 325 MG TAB PO PRN (11:49)
[2017-06-30] MEDS: Multivit, Therapeutic 1 TAB PO SCH (11:50)
[2017-06-30] MEDS: Folic Acid 1 MG TAB PO SCH (11:50)
[2017-06-30] MEDS ORDERED: Acetaminophen/Codeine 30-300mg Tablet PO PRN ×2 (12:00)
[2017-06-30 12:56] LABS: Anion Gap 11 mmol/L (10-20); BUN (Urea Nitrogen) 4 mg/dL (9.8-20.1); Calc. Creatinine Clearance 69 mL/min (70-130); Carbon Dioxide 26 mmol/L (23-31); Cardiac Risk 2.1 (Less than 4.5); Chloride 96 mmol/L (98-107); Cholesterol 165 mg/dl (< 200 Desired); Estimated GFR-MDRD Greater than 90; Glucose 137 mg/dL (83-110); HDL Cholesterol 80 mg/dL (>60 Neg Risk); LDL Cholesterol, Calculated 57 mg/dL; Potassium 3.2 mmol/L (3.5-5.1); Sodium 130 mmol/L (136-145); Triglycerides 142 mg/dL (Less than 150)
[2017-06-30] MEDS: Potassium Chloride 20 MEQ TAB PO SCH ×3 (13:02→20:03)
--- NOTE | 2017-06-30 13:03 | CON ---
DATE OF CONSULTATION: 06/29/2017 HISTORY OF PRESENT ILLNESS: The patient is an unfortunate 72-year-old woman with a history of cardio myopathy who presented after AICD fired on several occasions. The patient at this time is unable to give a coherent history. She was seen initially in 2010, had a severe decrease in left systolic func tion. The patient had placement of automatic implantable cardiac defibrillator. Cardiac catheteriza tion revealed minimal coronary artery disease. The patient had a marked improvement in her left vent ricular function. She has not been seen for several years. The patient suffers from severe anxiety. The patient reports that she felt a thumping sensation several times yesterday. PAST MEDICAL HISTORY: 1. Cardiomyopathy. 2. Coronary artery disease. 3. Cerebral vascular disease. 4. Bipolar disorder. 5. Hypertension. 6. Diabetes mellitus. 7. Anxiety disorder. PAST SURGICAL HISTORY: ALLERGIES: She is allergic to SULFA DRUGS. FAMILY HISTORY: Positive family history of coronary artery disease. SOCIAL HISTORY: Nonsmoker. MEDICATIONS: See nursing list. PHYSICAL EXAMINATION: GENERAL: Anxious woman who is not coherent. VITAL SIGNS: Blood pressure 132/70. NECK: Full. LUNGS: Clear to auscultation. HEART: Regular rate and rhythm. ABDOMEN: Nondistended. EXTREMITIES: Showed trace edema. LABORATORY: Sodium 129, potassium 4.1, chloride 90, bicarbonate 24, BUN 9, creatinine 0.67, ALT 105. Troponin 0.804, 0.834. White blood cell count 6.8, hemoglobin 15.1, hematocrit 42.2, platelets 245 . EKG revealed normal sinus rhythm with an ST-T wave abnormality suggestive of lateral ischemia. IMPRESSION: 1. Lead fracture of automatic implantable cardioverter/defibrillator. 2. History of cardiomyopathy. 3. Hypertension. . 4. Diabetes. 5. Chronic obstructive pulmonary disease. 6. History of anxiety disorder. 7. Bipolar disorder. 8. Elevated troponin level. This patient presents with AICD firing. She has an elevated troponin with normal CK-MB. From a card iac standpoint, EP will be consulted for evaluation for repair of the fracture lead. We will follow this patient with you through her hospitalization.
[2017-06-30] MEDS: Cephalexin 250 MG CAP PO SCH ×3 (13:05→23:46)
--- NOTE | 2017-06-30 14:35 | PQF ---
DATE: 06-30-17 ATTN: DR. ANN CRUZ Please exercise your independent, professional judgment in responding to the clarification form. Clinical indicators are provided on the bottom of this form for your review Please check appropriate box(s): [ ] Demand Ischemia [ ] NSTEMI [ ] AMI Type II [ x ] Other__lateral ischemia [ ] Other diagnosis [ ] Unable to determine In addition, please specify: Present on Admission (POA): [ x ] Yes [ ] No [ ] Unable to determine CLINICAL INDICATORS - SIGNS / SYMPTOMS / LABS: TROPONIN: 06-28-17: 0.056 06-29-17: 0.834 0.803 H&P: HX OF HTN, CHF, HX OF AICD, DM, HLD CONSULT NOTE DR. NANCE 06-29-17: HX OF CARDIOMYOPATHY WHO PRESENTED AFTER AICD FIRED ON SEVERAL OCCASIONS. CARDIAC CATH REVEALED MINIMAL CAD, CEREBRAL VASCULAR DISEASE. EKG REVEALED NSR WITH ST-T WAVE ABNORMALITY SUGGESTIVE OF LATERAL ISCHEMIA, ELEVATED TROP LEVEL RISKS: H&P: HX OF HTN, CHF, HX OF AICD, DM, HLD ( ER) HX OF LA, DM, HYPOTHYROIDISM, HLD TREATMENTS: 06-29-17: HEART CATH CARDIAC MONITORING CARDIAC CONSULT (This form is maintained as a part of the permanent medical record) 2014 [employer]. All Rights Reserved TRISH [email or web address] Office: [phone] [facility]
--- NOTE | 2017-06-30 15:06 | PQF ---
DATE: 06-30-17 ATTN: DR. ANN CRUZ Please exercise your independent, professional judgment in responding to the clarification form. Clinical indicators are provided on the bottom of this form for your review Please check appropriate box(s): [ x ] Encephalopathy: Type: [ ] Acute [ x ] Subacute [ ] Chronic Etiology: [ ] Metabolic [ x ] Toxic [ ] in the setting of underlying dementia [ ] Other (please specify) [ ] Transient Alteration of Awareness [ x ] Other diagnosis _alcohol withdrawl [ ] Unable to determine In addition, please specify: Present on Admission (POA): [ x ] Yes [ ] No [ ] Unable to determine For continuity of documentation, please document condition throughout progress notes and discharge summary. Thank You. CLINICAL INDICATORS - SIGNS / SYMPTOMS / LABS H&P: SHE CURRENTLY IS CONFUSED RIGHT NOW AND THERE IS NO FAMILY HERE AT BEDSIDE NEUROLOGIC: SHE IS CONFUSED CONSULT NOTE DR. NANCE 06-29-17: THE PATIENT AT THIS TIME IS UNABLE TO GIVE COHERENT HISTORY, ANXIOUS WOMEN WHO IS NOT COHERENT CONSULT NOTE DR. FERNANDEZ 06-29-17: ALTERED MENTAL STATUS H&P: HYPONATREMIA RISK FACTORS: H&P: HX OF ANXIETY, ALCOHOL ABUSE, CONFUSED, DM, HTN (ER) DYSKINESIA WITH UNDERLYING MENTAL HEALTH TREATMENTS: (MAY) KDUR, IVF NS, KEFLEX (This form is maintained as a part of the permanent medical record) 2014 [employer] All Rights Reserved [email or web address] Office: [phone] [facility]
[2017-06-30] MEDS: Lorazepam 2 MG/ML VIAL SLOW IVP PRN (15:24)
[2017-06-30] MEDS ORDERED: Calcium Chloride 1 GM/10 ML Abboject SYRINGE ONE (15:54)
[2017-06-30] MEDS ORDERED: PROPOFOL 200 MG/20 ML VIAL ONE (15:54)
[2017-06-30] MEDS ORDERED: ePHEDrine/0.9% NaCl/PF SYRINGE 50 mg/10 ml ONE (15:54)
[2017-06-30] MEDS: Atorvastatin Calcium 20 MG TAB PO SCH (20:04)
[2017-06-30] MEDS ORDERED: Sodium Chloride 0.9% 1,000 ML IV SCH (22:00)
--- NOTE | 2017-06-30 22:46 | RAD ---
FRONTAL VIEW CHEST: 06/30/17 COMPARISON: 06/28/17. CLINICAL HISTORY: Subcutaneous air, recent AICD placement. Hypotension. FINDINGS: There is added density at the superolateral left hemithorax. No obvious pneumothorax. The cardiomedia stinal silhouette is stable. Left sided triple lead left subclavian approach AICD is present. IMPRESSION: Abnormal increased density of the superior left hemithorax. This may relate to hematoma, in light of the provided clinical history. Correlate with physical exam. Continued imaging followup is recommende d. POS: [facility]
[2017-06-30] MEDS ORDERED: DOPamine 400 MG/D5W 250 ML 250 ML ONE (23:10)
[2017-06-30] MEDS ORDERED: DOPamine 400 MG/D5W 250 ML 250 ML IVPB SCH (23:30)
[2017-07-01 00:52] LABS: Hemoglobin 10.5 g/dL (12.0-16.0)
[2017-07-01] MEDS: Lorazepam 2 MG/ML VIAL SLOW IVP PRN (03:52)
[2017-07-01] MEDS ORDERED: Sodium Chloride 0.9% 3,000 ML IV SCH (06:30)
[2017-07-01] MEDS: Cephalexin 250 MG CAP PO SCH ×4 (06:31→23:53)
[2017-07-01] MEDS: Levothyroxine Sodium 125 MCG TAB PO SCH (06:31)
[2017-07-01] MEDS: Sodium Chloride 0.9% 1,000 ML IV SCH ×2 (06:31→09:35)
[2017-07-01 06:44] LABS: Hemoglobin 10.9 g/dL (12.0-16.0); Mean Corpuscular Hemoglobin 31.7 pg (27.0-31.0); Mean Corpuscular Volume 93.5 fL (81.0-99.0); Platelet Count 161 thou/uL (130-400); RBC Distribution Width 10.7 % (11.5-14.5); Red Blood Cell (RBC) Count 3.43 mill/uL (4.20-5.40); White Blood Cell (WBC) Count 7.3 thou/uL (4.8-10.8)
[2017-07-01 06:45] LABS: #Eosinphils 0.1 thou/uL (0.0-0.7); #Lymphocytes 0.9 thou/uL (1.20-3.40); #Monocytes 0.8 thou/uL (0.11-0.59); #Neutrophils 5.5 thou/uL (1.40-6.50); %Basophils 0.2 % (0.0-1.0); %Eosinophils 1.1 % (0.0-10.0); %Lymphocytes 12.5 % (21.0-51.0); %Monocytes 10.6 % (0.0-10.0); %Neutrophils 75.5 % (42.0-75.0)
--- NOTE | 2017-07-01 08:45 | CT ---
CT CHEST NONCONTRAST: Date: 07/01/17 CLINICAL HISTORY: Subcutaneous air, history of recent AICD placement. FINDINGS: There is soft tissue emphysema of the ventral left chest about indwelling cardiac pacing device. Ther e is streak artifact which does markedly limit visualization of this region. Surrounding hematoma is seen. There is also soft tissue edema of the ventral and lateral left chest wall. Intramuscular air i s noted. No obvious pneumothorax within limitations. There is minimal pericardial fluid. Scattered at herosclerotic vascular disease is seen. No evidence of lobar consolidation or significant effusion. T here is mild dependent atelectasis of each lung, posteriorly. No acute osseous pathology. IMPRESSION: Prominent subcutaneous/soft tissue emphysema of the left chest ascending into the left neck centered about indwelling left side cardiac pacing device. Prominent degree of streak artifact from the radiop aque pacing device does limit visualization. Associated soft tissue hematoma and edema of the ventral and lateral left chest wall present. Additional details are described above. POS: [facility]
--- NOTE | 2017-07-01 08:46 | PRG ---
DATE OF SERVICE: 07/01/2017 The patient is in ICU. Her blood pressure is low. She is on dopamine: Her blood pressure is in the 80s, her heart rate is 90. She is on IV fluids. She did have an echocardiogram ordered; however, t his is not available. She also had a chest CT which the results of this are unavailable as well. Th e patient is confused. PHYSICAL EXAMINATION: GENERAL: She is awake. NECK: Supple with no increased JVP or carotid bruit. Carotids had good upstroke, no thyromegaly. COR: Regular rate and rhythm. She has a left anterior incision that is clean, dry and intact. CHEST: Symmetrical. Clear to auscultation and percussion. ABDOMEN: Soft, nontender, normoactive bowel sounds. No bruit or organomegaly. NEUROLOGIC: She is awake, but is confused. LABORATORY DATA: H&H is 10.9 and 32.0, platelet count is 151, white blood cell count is normal. Pot assium was low yesterday, I do not know if they replenished this, I do not know what the new results are. Her sodium was 130. ASSESSMENT: 1. Automatic implantable cardioverter/defibrillator lead fracture status post AICD repair. 2. Alcohol abuse. 3. Anxiety disorder. 4. Hypotension. 5. Multiple medical problems. 6. Hypokalemia. PLAN: We will check a potassium level now and if low will replenish. We will also continue the same current medication regimen. Hopefully we will be able to wean her dopamine once her blood pressure is greater than 90. The patient will be in ICU I am sure over the next 24 hours.
[2017-07-01] MEDS: Multivit, Therapeutic 1 TAB PO SCH (09:36)
[2017-07-01] MEDS: Citalopram 20 MG TAB PO SCH (09:36)
[2017-07-01] MEDS: Folic Acid 1 MG TAB PO SCH (09:36)
[2017-07-01] MEDS: levETIRAcetam 500 MG TAB PO SCH ×2 (09:36→20:43)
[2017-07-01] MEDS: Diazepam 5 MG TAB PO SCH ×2 (09:36→20:43)
[2017-07-01] MEDS: Potassium Chloride 20 MEQ TAB PO SCH ×3 (09:36→20:43)
--- NOTE | 2017-07-01 09:37 | RAD ---
SINGLE VIEW OF CHEST: Date: 07/01/17 COMPARISON: 12/27/16. HISTORY: Pacemaker lead revision. FINDINGS: Single view of the chest shows a new pacemaker generator. There is now a triple lead pacemaker with i ts leads in the right atrium, right ventricle, and coronary sinus. No pneumothorax is seen. There is no evidence of consolidation, mass, or pleural effusion. IMPRESSION: Status post pacemaker revision without evidence of complication. POS: [facility]
--- NOTE | 2017-07-01 16:16 | PRG ---
CRITICAL CARE NOTE Critical care time was 120 minutes. This patient is an unfortunate 72-year-old woman who became markedly hypotensive. The patient yester day had placement of an electronic ventricular lead. In the evening, the patient became hypotensive. She was bolused with IV saline and placed on low dose dopamine. The patient became more hypertensi ve. The patient was then transferred to ICU. In the ICU, the patient was given several boluses of I V fluid. She was also started on higher dose dopamine. She then underwent a CT scan which revealed her to have soft tissue emphysema. There was no evidence of significant pericardial effusion. The p atient was felt to not have significant clinical evidence of cardiac tamponade. The patient will be continued in the ICU. Critical care time 1 hour and 20 minutes.
[2017-07-01] MEDS: Atorvastatin Calcium 20 MG TAB PO SCH (20:42)
[2017-07-02] MEDS: Cephalexin 250 MG CAP PO SCH ×2 (05:11→11:23)
[2017-07-02] MEDS: Levothyroxine Sodium 125 MCG TAB PO SCH (05:11)
[2017-07-02 05:30] LABS: #Eosinphils 0.2 thou/uL (0.0-0.7); #Lymphocytes 1.4 thou/uL (1.20-3.40); #Monocytes 0.9 thou/uL (0.11-0.59); #Neutrophils 3.6 thou/uL (1.40-6.50); %Basophils 0.4 % (0.0-1.0); %Eosinophils 2.9 % (0.0-10.0); %Lymphocytes 22.9 % (21.0-51.0); %Monocytes 14.2 % (0.0-10.0); %Neutrophils 59.6 % (42.0-75.0); Hemoglobin 10.2 g/dL (12.0-16.0); Mean Corpuscular HGB CONC 35.4 g/dL (32.0-36.0); Mean Corpuscular Hemoglobin 33.1 pg (27.0-31.0); Mean Corpuscular Volume 93.5 fl (81.0-99.0); Mean Platelet Volume 7.8 fL (7.4-10.4); Platelet Count 176 thou/uL (130-400); RBC Distribution Width 10.7 % (11.5-14.5); Red Blood Cell (RBC) Count 3.06 mill/uL (4.20-5.40)
[2017-07-02 06:02] LABS: ALT (SGPT) 46 U/L (8-55); AST (SGOT) 54 U/L (5-34); Albumin 3.7 g/dL (3.4-4.8); Alkaline Phosphatase 94 U/L (40-150); Anion Gap 13 mmol/L (10-20); BUN (Urea Nitrogen) Less than 4 mg/dL (9.8-20.1); Bilirubin, Total 0.5 mg/dL (0.2-1.2); Calc. Creatinine Clearance 80 mL/min (70-130); Calcium 8.9 mg/dL (7.8-10.44); Carbon Dioxide 25 mmol/L (23-31); Chloride 96 mmol/L (98-107); Estimated GFR-MDRD Greater than 90; Globulin 2.3 g/dL (2.4-3.5); Glucose 103 mg/dL (83-110); Potassium 4.2 mmol/L (3.5-5.1); Sodium 130 mmol/L (136-145)
[2017-07-02 08:25] VITALS: BMI 20.8
[2017-07-02] MEDS: Potassium Chloride 20 MEQ TAB PO SCH ×2 (09:30→15:44)
[2017-07-02] MEDS: levETIRAcetam 500 MG TAB PO SCH (09:30)
[2017-07-02] MEDS: Diazepam 5 MG TAB PO SCH (09:30)
[2017-07-02] MEDS: Folic Acid 1 MG TAB PO SCH (09:30)
[2017-07-02] MEDS: Citalopram 20 MG TAB PO SCH (09:30)
[2017-07-02] MEDS: Multivit, Therapeutic 1 TAB PO SCH (09:31)
[2017-07-02 11:54] VITALS: BP 95/61; TEMP 98.9
--- NOTE | 2017-07-02 15:16 | PDOC.CTH ---
<GrupomaeDarcy - Last Filed: 07/02/17 15:14> Cardiology Progress Note - Subjective EP progress note: Patient seen and evaluated. Mild-moderate discomfort at device implant site. Otherwise without complaint today and feels ready for DC home. - Objective Vital Signs Temp Pulse Resp BP Pulse Ox 07/02/17 11:20 98.9 F 92 16 95/61 99 07/02/17 09:25 98.7 F 94 16 108/72 97 07/02/17 04:00 98.8 F 95 14 107/67 96 Admit Weight 103 lb 14.4 oz Weight 106 lb 14.4 oz 07/01/17 07/02/17 07/03/17 06:59 06:59 06:59 Intake Total 2335 3593 Output Total 0 5225 Balance 2335 -1632 - Physical Examination General/Neuro: alert & oriented x3, NAD Neck: carotid US brisk, no JVD present Lungs: unlabored respirations Heart: PMI normal, RRR Abdomen: NT/ND Other PE findings: extensive bruising and moderate swelling at implant site. - Telemetry Telemetry Rhythm: NSR - Labs Result Diagrams: 07/02/17 04:45 07/02/17 04:45 Troponin/CKMB CK-MB (CK-2) 3.3 ng/mL (0-6.6) 06/28/17 20:42 Troponin I 0.803 ng/mL (< 0.028) H* 06/29/17 04:41 - Assessment/Plan RV lead fracture with multiple inappropriate ICD shocks. Generator was at [facility] upon admission. S/P generator change with insertion of new RV coil lead on . Post procedure hypotension and briefly on dopamine, no hemodynamically stable off gtt. Mild subcutaneous emphysema at implant site. Device was submuscular implant and thus required greater pocket manipulation and now has fairly extensive bruising that is the likely the cause of her slight drop in hemoglobin. Pressure dressing was removed this AM and site is now stable without additional hematoma formation. Ok for DC by EP. Prescription for keflex is in the chart post generator change. 7-14 day follow up in requested for site check. Contact [facility] with any ICD questions. <Amanuel Mcnair - Last Filed: 07/05/17 08:47> Cardiology Progress Note - Objective Admit Weight 103 lb 14.4 oz Weight 106 lb 14.4 oz - Labs Result Diagrams: 07/02/17 04:45 07/02/17 04:45 Troponin/CKMB CK-MB (CK-2) 3.3 ng/mL (0-6.6) 06/28/17 20:42 Troponin I 0.803 ng/mL (< 0.028) H* 06/29/17 04:41 Attending Addendum - Attending Addendum Date/Time: 07/05/17 [id number] I personally evaluated the patient and discussed the management with Dorina. I agree with the History, Examination, Assessment and Plan documented above with any addition or exceptions noted below.
== END 2017-07-02 16:04 | disposition home or self-care (01) | DRG 226 ==
LOC: ERS 20:37 → 2NO 06-29 01:32 → ERHOLD 06-29 01:33 → 2NO 06-29 06:32 → CCU 07-01 00:46 → 2NO 07-01 16:55
PROVIDERS: ADMIT Specialist; ATTEND Specialist
PROC: 02HK3KZ Insertion of Defibrillator Lead into Right Ventricle, Percutaneous Approach (ICD-10-PCS; principal; 2017-06-30)
PROC: 0JH609Z Insertion of Cardiac Resynchronization Defibrillator Pulse Generator into Chest Subcutaneous Tissue and Fascia, Open Approach (ICD-10-PCS; 2017-06-30)
PROC: 0JPT0PZ Removal of Cardiac Rhythm Related Device from Trunk Subcutaneous Tissue and Fascia, Open Approach (ICD-10-PCS; 2017-06-30)
DX: T82.110A Breakdown (mechanical) of cardiac electrode, initial encounter (principal); G92 Toxic encephalopathy; I42.9 Cardiomyopathy, unspecified; E87.1 Hypo-osmolality and hyponatremia; I11.0 Hypertensive heart disease with heart failure; I50.22 Chronic systolic (congestive) heart failure; T79.7XXA Traumatic subcutaneous emphysema, initial encounter; F10.230 Alcohol dependence with withdrawal, uncomplicated; D64.9 Anemia, unspecified; E11.9 Type 2 diabetes mellitus without complications; E03.9 Hypothyroidism, unspecified; E78.5 Hyperlipidemia, unspecified; F41.1 Generalized anxiety disorder; Z95.810 Presence of automatic (implantable) cardiac defibrillator; H10.9 Unspecified conjunctivitis; K21.9 Gastro-esophageal reflux disease without esophagitis; I95.81 Postprocedural hypotension; E87.6 Hypokalemia; J44.9 Chronic obstructive pulmonary disease, unspecified; F31.9 Bipolar disorder, unspecified; I25.89 Other forms of chronic ischemic heart disease; I25.2 Old myocardial infarction
CPT/HCPCS: 33223; 33263; 36005; 36415; 36416; 71045; 71250; 75820; 76700; 80053; 80061; 80185; 82550; 82553; 83690; 83735; 84132; 84484; 85014; 85018; 85025; 86850; 86900; 86901; 93005; 93306; 93641; 94760; 96374; 96376; A4216; C1721; C1898; J0690; J1265; J2001; J2060; J2704; J3480; J3490; J7050

== ENCOUNTER 2018-11-02 18:21 | Inpatient (IN) | payer MEDICARE ==
[2018-11-02] MEDS ORDERED: Lorazepam 2 MG/ML VIAL ONE (18:59)
[2018-11-02 19:02] LABS: Bacteria/HPF None Seen HPF (None Seen); Bilirubin Negative (Negative); Blood, Urine 1+ (Negative); Clarity Clear (Clear); Glucose, Urine (Dipstick) 150 mg/dL (Negative); Leukocyte Negative Leu/uL (Negative); Nitrite Negative (Negative); Protein, Urine (Dipstick) 100 mg/dL (Neg-Trace); RBC/HPF 0-3 HPF (0-3); Squamous Epithelial None Seen HPF (0-3); Urobilinogen Normal mg/dL (Less than 2); WBC/HPF 0-3 HPF (0-3)
[2018-11-02 19:05] LABS: #Lymphocytes 0.8 thou/uL (1.20-3.40); #Monocytes 0.6 thou/uL (0.11-0.59); #Neutrophils 8.2 thou/uL (1.40-6.50); %Basophils 0.5 % (0.0-1.0); %Eosinophils 0.4 % (0.0-10.0); %Lymphocytes 8.4 % (21.0-51.0); %Monocytes 6.2 % (0.0-10.0); %Neutrophils 84.5 % (42.0-75.0); Hemoglobin 14.3 g/dL (12.0-16.0); Mean Corpuscular HGB CONC 34.8 g/dL (32.0-36.0); Mean Corpuscular Hemoglobin 31.1 pg (27.0-31.0); Mean Corpuscular Volume 89.5 fL (78.0-98.0); Mean Platelet Volume 7.1 fL (7.4-10.4); Platelet Count 181 thou/uL (130-400); RBC Distribution Width 11.5 % (11.5-14.5); Red Blood Cell (RBC) Count 4.58 mill/uL (4.20-5.40); White Blood Cell (WBC) Count 9.7 thou/uL (4.8-10.8)
[2018-11-02 19:09] LABS: Amphetamine Not Detected (NotDetected); Barbiturates Screen Detected (NotDetected); Benzodiazepine Screen Detected (NotDetected); Cocaine Metabolite Screen Not Detected (NotDetected); Medtox Control Line Valid? VALID (VALID); Medtox Reader # READER 4; Methadone Not Detected (NotDetected); Methamphetamine Not Detected (NotDetected); Opiate Screen Not Detected (NotDetected); Oxycodone Screen Not Detected (NotDetected); Phencyclidine (PCP) Not Detected (NotDetected); THC/Cannabinoid Screen Not Detected (NotDetected); Tricyclic Screen Not Detected (NotDetected)
[2018-11-02 19:26] LABS: Magnesium 1.9 mg/dL (1.6-2.6)
[2018-11-02 19:29] LABS: ALT (SGPT) 36 U/L (8-55); AST (SGOT) 35 U/L (5-34); Acetaminophen Less than 6.0 mcg/mL (10.0-30.0); Alcohol Less than 10 mg/dL (Less than 10); Alkaline Phosphatase 114 U/L (40-150); Anion Gap 19 mmol/L (10-20); BUN (Urea Nitrogen) 11 mg/dL (9.8-20.1); Bilirubin, Total 0.3 mg/dL (0.2-1.2); Calc. Creatinine Clearance 0 mL/min (70-130); Calcium 9.7 mg/dL (7.8-10.44); Carbon Dioxide 26 mmol/L (23-31); Chloride 90 mmol/L (98-107); Estimated GFR-MDRD 67; Globulin 2.9 g/dL (2.4-3.5); Glucose 166 mg/dL (83-110); Protein, Total 7.9 g/dL (6.0-8.3); Salicylate Less than 8.0 mg/dL (15.0-30.0); Sodium 132 mmol/L (136-145)
[2018-11-02 19:30] LABS: Lactic Acid 4.1 mmol/L (0.5-2.2)
[2018-11-02 19:34] LABS: Potassium 2.6 mmol/L (3.5-5.1)
--- NOTE | 2018-11-02 19:59 | CT ---
CT BRAIN 11/02/18 PROVIDED CLINICAL HISTORY: Altered mental status. FINDINGS: Comparison is made with the study dated 01/10/17. The ventricular system appears normal in size and m orphology. There is no evidence for intracranial hemorrhage or mass effect. The extracranial soft tis sues and osseous structures demonstrate no acute findings. IMPRESSION: No evidence for intracranial hemorrhage or mass effect. POS: LAURI
[2018-11-02] MEDS ORDERED: NS 0.9% w/ 20 MEQ KCL 1,000 ML IV SCH (20:15)
[2018-11-02] MEDS ORDERED: levETIRAcetam 500 MG/100 ML PREMIX BAG ONE (20:48)
[2018-11-02 21:29] LABS: Lactic Acid 0.8 mmol/L (0.5-2.2)
[2018-11-03] MEDS ORDERED: Lorazepam 2 MG/ML VIAL ONE (00:04)
[2018-11-03] MEDS ORDERED: Lorazepam 1 MG TAB PO PRN (08:27)
[2018-11-03] MEDS ORDERED: Lorazepam 2 MG/ML VIAL SLOW IVP PRN (09:15)
[2018-11-03] MEDS: cefTRIAXone\\ROCEPHIN 1 GM in Sodium Chloride 0.9% 100 ML IVPB SCH (09:38)
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
[2018-11-03] MEDS: Pantoprazole 40 MG VIAL IVP SCH (09:44)
[2018-11-03] MEDS: D5 0.9% NS w/ 20 mEq KCl 1,000 ML IV SCH ×2 (11:04→21:45)
[2018-11-03] MEDS: Thiamine HCl 200 MG/2 ML VIAL IM SCH (11:08)
[2018-11-03] MEDS: Multivitamins, Adult 10 ML in D5 0.9% NS w/ 20 mEq KCl 1,000 ML IV SCH (11:13)
[2018-11-03] MEDS: Lorazepam 2 MG/ML VIAL SLOW IVP SCH ×3 (12:31→23:07)
[2018-11-03] MEDS ORDERED: FOSPHENYTOIN SODIUM IVPB SCH (13:15)
[2018-11-03] MEDS ORDERED: SODIUM CHLORIDE 0.9% IVPB SCH (13:15)
--- NOTE | 2018-11-03 13:31 | RAD ---
XR Chest 1 View Portable History: Unresponsive. Altered mental status. Comparison: Radiograph 2018 Findings: Exam is limited due to leftward patient rotation. Lungs are otherwise clear. No pneumothora x. No effusion. Cardiac silhouette and mediastinal contours are within normal limits. No acute osseous abnormality. Moderate vascular calcifications. Impression: No acute intrathoracic abnormality.
[2018-11-03] MEDS ORDERED: Fosphenytoin Sodium 100 MG in Sodium Chloride 0.9% 50 ML IVPB SCH ×2 (14:00→22:00)
[2018-11-03 14:48] VITALS: BMI 16.4
[2018-11-03] MEDS ORDERED: Sterile Water 10 ML VIAL FS PRN (15:42)
[2018-11-03] MEDS ORDERED: Ziprasidone 20 MG VIAL IM SCH (15:45)
[2018-11-03] MEDS: FOSPHENYTOIN SODIUM IVPB SCH (23:28)
[2018-11-03] MEDS: SODIUM CHLORIDE 0.9% IVPB SCH (23:28)
--- NOTE | 2018-11-04 01:03 | CON ---
DATE OF CONSULTATION: 11/03/2018 CONSULTING PHYSICIAN: Dr. Renny Parish. IMPRESSION: 1. Seizure with postictal state. 2. Anorexia of uncertain etiology. 3. History of depression. 4. Diabetes. PLAN: 1. Increase Dilantin to 150 mg per day. 2. Continue Keppra 1000 mg per day. HISTORY OF PRESENT ILLNESS: Ms. Sorensen is a 73-year-old woman with a known history of seizures. She has been having some persistent weight loss over the recent past. She has a history of alcohol use, but has not drank in several years. She has had a history of depression and anxiety and was being seen in [facility]. Her reports she has been compliant with her medication. She came in after a seizure, it was witnessed. She has a Dilantin level of 8.7. Keppra level is pending. Her CT scan of the brain was unremarkable. Prolactin was elevated at 64. Ammonia level, B12, and cortisols were all in normal range. PAST MEDICAL HISTORY: As listed above. ALLERGIES: SULFA. SOCIAL HISTORY: No tobacco use. FAMILY HISTORY: Noncontributory. MEDICATION LIST: Reviewed. REVIEW OF SYSTEMS: Not obtainable due to her cognitive state. PHYSICAL EXAMINATION: GENERAL: She is a cachectic-appearing elderly woman, in four-point restraints. HEENT: Mucous membranes are dry. HEENT: Pupils are equal. Conjunctivae clear. NECK: No lymphadenopathy. EXTREMITIES: No cyanosis or edema. NEUROLOGIC: She is somewhat awake, but not really responsive to verbal commands. Her face appears to be symmetric. She is moving all 4 extremities equally well. No abnormal movements are seen. Gait is not testable. LABORATORY DATA: Urinalysis was clear. Toxicology was positive for barbiturates and benzodiazepines. SUMMARY: This is an elderly lady with recent seizure. She apparently is compliant with her medication. Her Dilantin is subtherapeutic. Given her size, I will increase it modestly. Hopefully, her postictal state will clear shortly. Job ID: [id number]
[2018-11-04] MEDS: Lorazepam 2 MG/ML VIAL SLOW IVP SCH ×2 (05:03→12:40)
[2018-11-04] MEDS: FOSPHENYTOIN SODIUM IVPB SCH ×2 (05:05→14:22)
[2018-11-04] MEDS: SODIUM CHLORIDE 0.9% IVPB SCH ×2 (05:05→14:22)
[2018-11-04] MEDS ORDERED: Levothyroxine 100 MCG SDV IVP SCH (06:00)
[2018-11-04 06:10] LABS: #Lymphocytes 0.9 thou/uL (1.20-3.40); #Monocytes 1.4 thou/uL (0.11-0.59); #Neutrophils 8.5 thou/uL (1.40-6.50); %Basophils 0.2 % (0.0-1.0); %Lymphocytes 8.3 % (21.0-51.0); %Neutrophils 78.5 % (42.0-75.0); Hemoglobin 11.4 g/dL (12.0-16.0); Mean Corpuscular HGB CONC 34.1 g/dL (32.0-36.0); Mean Corpuscular Hemoglobin 30.6 pg (27.0-31.0); Mean Corpuscular Volume 89.8 fL (78.0-98.0); Mean Platelet Volume 7.4 fL (7.4-10.4); Platelet Count 154 thou/uL (130-400); RBC Distribution Width 11.4 % (11.5-14.5); Red Blood Cell (RBC) Count 3.72 mill/uL (4.20-5.40); White Blood Cell (WBC) Count 10.8 thou/uL (4.8-10.8)
[2018-11-04 06:32] LABS: Anion Gap 11 mmol/L (10-20); BUN (Urea Nitrogen) 12 mg/dL (9.8-20.1); Calc. Creatinine Clearance 48 mL/min (70-130); Calcium 8.5 mg/dL (7.8-10.44); Carbon Dioxide 28 mmol/L (23-31); Chloride 104 mmol/L (98-107); Dilantin 23.3 ug/mL (10.0-20.0); Estimated GFR-MDRD Greater than 90; Glucose 111 mg/dL (83-110); Potassium 3.2 mmol/L (3.5-5.1); Sodium 140 mmol/L (136-145)
[2018-11-04] MEDS ORDERED: levETIRAcetam 750 MG, Admixture Fee 1 EACH in Sodium Chloride 0.9% 100 ML IVPB SCH (09:00)
[2018-11-04] MEDS: Pantoprazole 40 MG VIAL IVP SCH (10:15)
[2018-11-04] MEDS: Thiamine HCl 200 MG/2 ML VIAL IM SCH (10:16)
[2018-11-04] MEDS: cefTRIAXone\\ROCEPHIN 1 GM in Sodium Chloride 0.9% 100 ML IVPB SCH (11:31)
[2018-11-04] MEDS: Multivitamins, Adult 10 ML in D5 0.9% NS w/ 20 mEq KCl 1,000 ML IV SCH (12:39)
[2018-11-04] MEDS: ALPRAZolam 1 MG TAB PO SCH ×2 (15:34→20:55)
[2018-11-04] MEDS: hydrOXYzine 25 MG TAB PO SCH ×2 (15:35→19:45)
[2018-11-04] MEDS: Temazepam 15 MG CAP PO SCH (20:56)
[2018-11-04] MEDS: Atorvastatin Calcium 20 MG TAB PO SCH (21:00)
[2018-11-04] MEDS: D5 0.9% NS w/ 20 mEq KCl 1,000 ML IV SCH (23:02)
[2018-11-05] MEDS: D5 0.9% NS w/ 20 mEq KCl 1,000 ML IV SCH ×4 (02:12→22:46)
[2018-11-05] MEDS: hydrOXYzine 25 MG TAB PO SCH ×4 (02:13→18:33)
[2018-11-05] MEDS: Levothyroxine Sodium 100 MCG TAB PO SCH (05:47)
[2018-11-05] MEDS: Ziprasidone 20 MG VIAL IM PRN (06:44)
[2018-11-05] MEDS ORDERED: Lorazepam 1 MG TAB PO PRN (07:53)
[2018-11-05] MEDS ORDERED: levETIRAcetam 500 MG TAB PO SCH (09:00)
[2018-11-05] MEDS ORDERED: Thiamine 100 MG TAB PO SCH (09:00)
[2018-11-05] MEDS: ALPRAZolam 1 MG TAB PO SCH ×3 (09:05→21:15)
[2018-11-05] MEDS: Multivitamin W/ Minerals 1 TAB PO SCH (09:06)
[2018-11-05] MEDS: levETIRAcetam 500 mg/5 ml Oral Solution PO SCH (09:06)
[2018-11-05] MEDS: cefTRIAXone\\ROCEPHIN 1 GM in Sodium Chloride 0.9% 100 ML IVPB SCH (09:09)
[2018-11-05] MEDS: Thiamine HCl 200 MG/2 ML VIAL IM SCH (09:09)
[2018-11-05] MEDS: Lorazepam 2 MG/ML VIAL SLOW IVP PRN ×3 (09:21→17:57)
[2018-11-05] MEDS ORDERED: Ziprasidone 20 MG VIAL IM SCH ×2 (18:15→18:30)
[2018-11-05] MEDS: Temazepam 15 MG CAP PO SCH (21:14)
[2018-11-05] MEDS: Bupropion 150 MG XL TAB PO SCH (21:15)
[2018-11-05] MEDS: Atorvastatin Calcium 20 MG TAB PO SCH (21:15)
[2018-11-05] MEDS: Citalopram 10 MG TAB PO SCH (21:16)
[2018-11-06] MEDS: hydrOXYzine 25 MG TAB PO SCH ×4 (02:15→18:41)
[2018-11-06] MEDS: Lorazepam 2 MG/ML VIAL SLOW IVP PRN ×2 (03:42→15:25)
[2018-11-06] MEDS: Levothyroxine Sodium 100 MCG TAB PO SCH (07:25)
[2018-11-06] MEDS: levETIRAcetam 500 mg/5 ml Oral Solution PO SCH (08:16)
[2018-11-06] MEDS: cefTRIAXone\\ROCEPHIN 1 GM in Sodium Chloride 0.9% 100 ML IVPB SCH (08:16)
[2018-11-06] MEDS: ALPRAZolam 1 MG TAB PO SCH ×3 (08:17→21:29)
[2018-11-06] MEDS: Thiamine 100 MG TAB PO SCH (08:17)
[2018-11-06] MEDS: Bupropion 150 MG XL TAB PO SCH ×2 (08:17→21:23)
[2018-11-06] MEDS: Citalopram 10 MG TAB PO SCH ×3 (08:18→21:29)
[2018-11-06] MEDS: D5 0.9% NS w/ 20 mEq KCl 1,000 ML IV SCH ×3 (08:18→18:12)
[2018-11-06] MEDS: Multivitamin W/ Minerals 1 TAB PO SCH (08:18)
[2018-11-06] MEDS ORDERED: Megestrol Acetate 800 MG/20 ML UDCUP PO SCH (08:30)
[2018-11-06] MEDS ORDERED: Ziprasidone 20 MG CAP PO SCH (08:30)
[2018-11-06] MEDS: Nicotine 14 MG PATCH TOP SCH (08:39)
[2018-11-06] MEDS ORDERED: Apixaban 5 MG TAB PO SCH (16:45)
[2018-11-06] MEDS: Ziprasidone 20 MG VIAL IM PRN (18:55)
[2018-11-06] MEDS: Atorvastatin Calcium 20 MG TAB PO SCH (21:28)
[2018-11-06] MEDS: Apixaban 5 MG TAB PO SCH (21:28)
[2018-11-06] MEDS: Temazepam 15 MG CAP PO SCH (21:29)
[2018-11-07] MEDS: D5 0.9% NS w/ 20 mEq KCl 1,000 ML IV SCH ×3 (04:07→19:24)
[2018-11-07 04:55] LABS: #Eosinphils 0.2 thou/uL (0.0-0.7); #Lymphocytes 1.8 thou/uL (1.20-3.40); #Monocytes 0.5 thou/uL (0.11-0.59); #Neutrophils 3.3 thou/uL (1.40-6.50); %Basophils 0.7 % (0.0-1.0); %Eosinophils 3.3 % (0.0-10.0); %Lymphocytes 30.7 % (21.0-51.0); %Monocytes 8.9 % (0.0-10.0); %Neutrophils 56.4 % (42.0-75.0); Hemoglobin 11.3 g/dL (12.0-16.0); Mean Corpuscular HGB CONC 35.4 g/dL (32.0-36.0); Mean Corpuscular Volume 90.4 fL (78.0-98.0); Mean Platelet Volume 7.8 fL (7.4-10.4); Platelet Count 138 thou/uL (130-400); RBC Distribution Width 11.6 % (11.5-14.5); Red Blood Cell (RBC) Count 3.52 mill/uL (4.20-5.40); White Blood Cell (WBC) Count 5.8 thou/uL (4.8-10.8)
[2018-11-07 05:22] LABS: Anion Gap 9 mmol/L (10-20); BUN (Urea Nitrogen) 7 mg/dL (9.8-20.1); Calc. Creatinine Clearance 52 mL/min (70-130); Calcium 8.5 mg/dL (7.8-10.44); Carbon Dioxide 30 mmol/L (23-31); Chloride 98 mmol/L (98-107); Dilantin 7.5 ug/mL (10.0-20.0); Estimated GFR-MDRD Greater than 90; Glucose 101 mg/dL (83-110); Sodium 134 mmol/L (136-145)
[2018-11-07] MEDS: hydrOXYzine 25 MG TAB PO SCH ×4 (05:27→20:06)
[2018-11-07] MEDS: Levothyroxine Sodium 100 MCG TAB PO SCH (06:22)
[2018-11-07] MEDS ORDERED: Megestrol Acetate 800 MG/20 ML UDCUP PO SCH (09:00)
[2018-11-07] MEDS ORDERED: Ziprasidone 20 MG CAP PO SCH (09:00)
[2018-11-07] MEDS ORDERED: Potassium Chloride 20 MEQ TAB PO SCH (09:00)
[2018-11-07] MEDS: ALPRAZolam 1 MG TAB PO SCH ×2 (09:26→16:03)
[2018-11-07] MEDS: Apixaban 5 MG TAB PO SCH (09:30)
[2018-11-07] MEDS: Bupropion 150 MG XL TAB PO SCH (09:31)
[2018-11-07] MEDS: Citalopram 10 MG TAB PO SCH ×2 (09:32→16:03)
[2018-11-07] MEDS: Thiamine 100 MG TAB PO SCH (09:39)
[2018-11-07] MEDS: Multivitamin W/ Minerals 1 TAB PO SCH (09:41)
[2018-11-07] MEDS: levETIRAcetam 500 mg/5 ml Oral Solution PO SCH (09:43)
[2018-11-07] MEDS: Nicotine 14 MG PATCH TOP SCH (09:54)
[2018-11-07] MEDS: cefTRIAXone\\ROCEPHIN 1 GM in Sodium Chloride 0.9% 100 ML IVPB SCH (11:21)
[2018-11-07 19:50] VITALS: BP 109/68; TEMP 98.1
--- NOTE | 2018-11-08 08:32 | CON ---
DATE OF CONSULTATION: 11/07/2018 HISTORY OF PRESENT ILLNESS: I am seeing Ms. 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 Her problems are: 1. Acute admission for seizure and postictal state. a. ICD interrogation reveals no corresponding arrhythmia episodes. 2. Chronic systolic congestive heart failure with severe reduced LVEF in 10% to 15%, improved to 60% to 65% based on echocardiogram in December 2014. 3. Status post single-chamber ICD implantation in 2010. a. Status post RV lead revision in June 2018. 4. History of anorexia. 5. History of depression. 6. History of chronic obstructive pulmonary disease. 7. History of diabetes. 8. History of hypothyroidism. ALLERGIES: SULFA. MEDICATIONS: At home included simvastatin, levothyroxine, temazepam, alprazolam , citalopram, levetiracetam, phenytoin, thiamine, bupropion, hydroxyzine. SUBJECTIVE/REVIEW OF SYSTEMS: Ms. Sorensen is here with an episode of seizure despite being compliant with her medications. She has significant postictal and cannot recall the event for a period of time. She denies palpitations. No other episodes of dizziness or loss of consciousness. No PND, orthopnea, or lower extremity edema. Rest of 12-point review of systems is otherwise unremarkable. PAST MEDICAL HISTORY: As above. The patient has a history of seizure disorder, anxiety, and depression. SOCIAL HISTORY: The patient . Denies tobacco use. Remote history of alcohol use. FAMILY HISTORY: Noncontributory. OBJECTIVE: VITAL SIGNS: Blood pressure 122/78, heart rate 94, respirations 18, temperature 97.6 degrees Fahrenheit. GENERAL: Alert and oriented elderly woman, appears mildly cachectic, in no apparent distress. NECK: Supple. Jugular veins not distended. CHEST: Coarse without crackles. HEART: Heart sounds are regular to rate and rhythm. No murmur or gallop. ABDOMEN: Benign. Bowel sounds positive. EXTREMITIES: Lower extremities without edema, clubbing, or cyanosis. Pulses are adequate. NEUROLOGIC: The patient is nonfocal. MUSCULOSKELETAL: Without joint swelling or deformity. SKIN: Without rash. DATABASE: EKG is reviewed, revealing sinus rhythm, no significant ST-T changes. ICD interrogation reveals a Medtronic Evera XT DR dual-chamber ICD, battery longevity 9.3 years. Lead parameters are adequate, impedance 418 ohms in the atrium, 399 ohms in the right ventricle. Sensing 3 mV in the right atrium, over 20 mV in the right ventricle. Short episodes are seen, short bursts of atrial arrhythmias with prompt jain of sinus rhythm, nonsustained episodes though. LABORATORY DATA: White cell count is 5.8, hemoglobin 11.3, platelet count is 138. Sodium 134, potassium 3.0, BUN is 7, creatinine is 0.56. Phenytoin levels are somewhat low at 7.5. ASSESSMENT: Ms. Sorensen is a 73-year-old woman with prior history of seizure disorder, anxiety, depression, cardiomyopathy, dual-chamber implantable cardioverter-defibrillator in place. This is functioning adequately. Although she had significant atrial tachyarrhythmia runs, a very short lasting in total duration with frequent restriction of normal rhythm is noted. Burst of atrial activity is seen during her episodes on the . This may have corresponded to her seizure activity but unlikly to have caused the seizure via circulation collapse. At this point, I would agree with continuing seizure medication with adjustments as per Dr. Riggs. I would recommend continued routine implantable cardioverter-defibrillator monitoring for now, hence history of seizures and relatively short-lasting episode of atrial fibrillation. Anticoagulation is not warranted. We will continue aspirin therapy only. We will follow with you. Thank you for allowing me to participate in the care of this patient. Job ID: [id number] [facility] CHAFFEE HOSPITALLeticia
--- NOTE | 2018-11-11 09:46 | PQF ---
[employer] Crystal Reports Winform ViewerTUBJV TREVINO VIDAL CRUZ MD [id number] [address] [place] [address] [id number] CLINICAL DOCUMENTATION CLARIFICATION FORM: POST DISCHARGE Addendum to original discharge summary date: ____ Late entry note date: __ Date: 11/11/2018 ATTN: VIDAL CRUZ MD Please exercise your independent, professional judgment in responding to the clarification form. Clinical indicators are provided on the bottom of this form for your review Please check appropriate box(s): [ ] Protein Calorie Malnutrition: [ ] Mild [ ] Moderate [ ] Severe [ ] Other Malnutrition (please specify) __ [ ] Underweight without malnutrition [ x ] Cachexia [ ] Other diagnosis [ ] Unable to determine In addition, please specify: Present on Admission (POA): [ x ] Yes [ ] No [ ] Unable to determine CLINICAL INDICATORS - SIGNS / SYMPTOMS / LABS -Malnurished, cachetic-H&P, 11/03, VIDAL CURZ MD -Skin: very poor turgor, tenting-H&P, 11/03, VIDAL CRUZ MD -Adult failure to thirive-H&P, 11/03, VIDAL CRUZ MD -Dehdyration-H&P, 11/03, VIDAL CRUZ MD -Basically no appitite and could not eat-H&P, 11/03, VIDAL CRUZ MD -has been significant malaise, weakness and fatigue-H&P, 11/03, VIDAL CRUZ MD -Anorexia- unclear etiology-Consult, 11/03, Oneil Valera MD -some persistent weight loss over the recent past-H&P, 11/03, VIDAL CRUZ MD -Albumin:5.0H, Total protein:7.9-Laboratory, 11/02 RISK FACTORS -Sepsis from Cystitits-H&P, 11/03, VIDAL CRUZ MD -looks older than her stated age-H&P, 11/03, VIDAL CRUZ MD -possible alcohol withdral syndrome-H&P, 11/03, VIDAL CRUZ MD TREATMENT: -Multivitamins.IV-11/03 -Sodium chloride.IV-MAY, 11/03 MTDD
--- NOTE | 2018-11-12 13:32 | EKG ---
Test Reason : Blood Pressure : / mmHG Vent. Rate : 107 BPM Atrial Rate : 107 BPM P-R Int : 168 ms QRS Dur : 098 ms QT Int : 382 ms P-R-T Axes : 081 071 103 degrees QTc Int : 509 ms Sinus tachycardia Anterior infarct , age undetermined Abnormal ECG Slight ST depression V4-V6 Confirmed by LC WIRGHT DO ([id number]), video effects editor CRISTI MCHUGH ([id number]) on 11/12/2018 1:31:30 PM Referred By: Confirmed By:LC WRIGHT DO
== END 2018-11-07 19:43 | disposition home or self-care (01) | DRG 872 ==
LOC: ERS 18:21 → 2SE 21:33
PROVIDERS: ADMIT Specialist; ATTEND Specialist
DX: A41.9 Sepsis, unspecified organism (principal); F13.20 Sedative, hypnotic or anxiolytic dependence, uncomplicated; I50.22 Chronic systolic (congestive) heart failure; I42.9 Cardiomyopathy, unspecified; R64 Cachexia; E87.2 Acidosis; E87.6 Hypokalemia; N30.90 Cystitis, unspecified without hematuria; R56.9 Unspecified convulsions; I10 Essential (primary) hypertension; E78.5 Hyperlipidemia, unspecified; F41.9 Anxiety disorder, unspecified; F32.9 Major depressive disorder, single episode, unspecified; E03.9 Hypothyroidism, unspecified; K21.9 Gastro-esophageal reflux disease without esophagitis; I11.0 Hypertensive heart disease with heart failure; I50.9 Heart failure, unspecified; R62.7 Adult failure to thrive; E86.0 Dehydration; J44.9 Chronic obstructive pulmonary disease, unspecified; F51.04 Psychophysiologic insomnia; Z95.810 Presence of automatic (implantable) cardiac defibrillator; Z90.49 Acquired absence of other specified parts of digestive tract; Z88.2 Allergy status to sulfonamides
CPT/HCPCS: 36415; 36416; 51701; 70450; 71045; 80048; 80053; 80177; 80185; 80306; 80307; 81003; 81015; 82140; 82533; 82607; 83605; 83690; 83735; 83880; 84146; 84443; 84484; 85025; 87040; 87086; 93005; 96365; 96366; 96368; 96375; 96376; A4353; C9113; J0696; J1953; J2060; J3411; J3480; J3486; J3490; Q2009

== ENCOUNTER 2018-11-27 15:19 | Inpatient (IN) | payer MEDICARE ==
[2018-11-27] MEDS ORDERED: Morphine 4 MG/ML VIAL ONE (15:52)
[2018-11-27] MEDS ORDERED: Ondansetron PF 4 MG/2 ML Vial ONE (15:52)
[2018-11-27 16:23] LABS: #Eosinphils 0.1 thou/uL (0.0-0.7); #Lymphocytes 1.3 thou/uL (1.20-3.40); #Monocytes 0.7 thou/uL (0.11-0.59); #Neutrophils 4.3 thou/uL (1.40-6.50); %Basophils 0.3 % (0.0-1.0); %Eosinophils 1.7 % (0.0-10.0); %Lymphocytes 20.1 % (21.0-51.0); %Monocytes 11.1 % (0.0-10.0); %Neutrophils 66.8 % (42.0-75.0); Hemoglobin 12.4 g/dL (12.0-16.0); Mean Corpuscular HGB CONC 35.8 g/dL (32.0-36.0); Mean Corpuscular Hemoglobin 31.9 pg (27.0-31.0); Mean Corpuscular Volume 89.1 fL (78.0-98.0); Mean Platelet Volume 6.8 fL (7.4-10.4); Platelet Count 201 thou/uL (130-400); RBC Distribution Width 11.5 % (11.5-14.5); Red Blood Cell (RBC) Count 3.89 mill/uL (4.20-5.40); White Blood Cell (WBC) Count 6.4 thou/uL (4.8-10.8)
[2018-11-27 16:29] LABS: INR-International Normal Ratio 1.1; PTT 31.8 SEC (22.9-36.1); Prothrombin Time 13.8 SEC (12.0-14.7)
--- NOTE | 2018-11-27 16:35 | RAD ---
EXAM: Single view of the chest HISTORY: Fall with chest pain COMPARISON: 11/02/2018 FINDINGS: Single view of the chest shows a normal sized cardiomediastinal silhouette. The pacemaker is unchanged in position. There is no evidence of consolidation, mass, or pleural effusion. The bones are unremarkable. IMPRESSION: No evidence of acute cardiopulmonary disease
--- NOTE | 2018-11-27 16:37 | RAD ---
Exam: Single view of the pelvis HISTORY: Pelvic and hip pain after fall on Wednesday COMPARISON: None FINDINGS: A single view the pelvis shows an impaction fracture of the right femoral neck. No degenera tive changes seen in either hip. IMPRESSION: Right femoral neck fracture
[2018-11-27 16:46] LABS: ALT (SGPT) 20 U/L (8-55); AST (SGOT) 22 U/L (5-34); Acetaminophen Less than 6.0 mcg/mL (10.0-30.0); Albumin 4.3 g/dL (3.4-4.8); Alcohol Less than 10 mg/dL (Less than 10); Alkaline Phosphatase 112 U/L (40-150); Anion Gap 13 mmol/L (10-20); BUN (Urea Nitrogen) 12 mg/dL (9.8-20.1); Bilirubin, Total 0.4 mg/dL (0.2-1.2); Calc. Creatinine Clearance 0 mL/min (70-130); Calcium 9.4 mg/dL (7.8-10.44); Carbon Dioxide 31 mmol/L (23-31); Chloride 92 mmol/L (98-107); Estimated GFR-MDRD 62; Globulin 2.6 g/dL (2.4-3.5); Glucose 108 mg/dL (83-110); Magnesium 1.7 mg/dL (1.6-2.6); Protein, Total 6.9 g/dL (6.0-8.3); Salicylate Less than 8.0 mg/dL (15.0-30.0); Sodium 133 mmol/L (136-145)
[2018-11-27 16:47] LABS: Potassium 2.6 mmol/L (3.5-5.1)
--- NOTE | 2018-11-27 16:54 | CT ---
EXAM: CT brain without contrast HISTORY: Fall on blood thinners with head trauma COMPARISON: 11/02/2018 TECHNIQUE: Multiple contiguous axial images were obtained and a CT of the brain without contrast. FINDINGS: There are scattered hypodensities in the subcortical and periventricular white matter consi stent with small vessel ischemic disease. There is no evidence of hydrocephalus, intracranial hemorrhage, or extra-axial fluid collection. There is soft tissue swelling in the right frontal scalp. The underlying calvarium is unremarkable. T he visualized paranasal sinuses and mastoid air cells are well aerated. IMPRESSION: No evidence of acute intracranial abnormality
--- NOTE | 2018-11-27 16:56 | CT ---
EXAM: CT of the cervical spine without contrast HISTORY: Fall with neck pain COMPARISON: 08/25/2010 TECHNIQUE: Multiple contiguous axial images were obtained in a CT of the cervical spine without contr ast. Sagittal and coronal reformats were performed. FINDINGS: The vertebral bodies demonstrate normal height and alignment without fracture or subluxatio n. Moderate degenerative changes are seen throughout the cervical spine with intervertebral disc space narrowing and moderate osteophyte formation. No prevertebral soft tissue swelling is seen. The posterior facets are well aligned. Normal alignment of the skull base with the cervical spine is seen. The lung apices and cervical soft tissues are unremarkable. IMPRESSION: No evidence of acute osseous abnormality of the cervical spine.
[2018-11-27 17:04] LABS: Free T4 (Free Thyroxine) 1.21 ng/dL (0.70-1.48); Thyroid Stimulating Hormone 3.3416 uIU/mL (0.35-4.94)
[2018-11-27] MEDS ORDERED: Magnesium 2 GM/50 ML BAG (IN WATER) ONE (17:08)
[2018-11-27 17:23] LABS: Bilirubin Negative (Negative); Blood, Urine Negative (Negative); Clarity Clear (Clear); Glucose, Urine (Dipstick) 200 mg/dL (Negative); Leukocyte Negative Leu/uL (Negative); Nitrite Negative (Negative); Protein, Urine (Dipstick) 20 mg/dL (Neg-Trace); Urobilinogen Normal mg/dL (Less than 2)
[2018-11-27] MEDS ORDERED: CEFAZOLIN 2 GM in Premix Bag 1 BAG IVPB SCH (17:30)
[2018-11-27 17:34] LABS: Amphetamine Not Detected (NotDetected); Barbiturates Screen Detected (NotDetected); Benzodiazepine Screen Detected (NotDetected); Cocaine Metabolite Screen Not Detected (NotDetected); Medtox Control Line Valid? VALID (VALID); Medtox Reader # READER 4; Methadone Not Detected (NotDetected); Methamphetamine Not Detected (NotDetected); Opiate Screen Detected (NotDetected); Oxycodone Screen Not Detected (NotDetected); Phencyclidine (PCP) Not Detected (NotDetected); THC/Cannabinoid Screen Not Detected (NotDetected); Tricyclic Screen Not Detected (NotDetected)
--- NOTE | 2018-11-27 17:40 | RAD ---
EXAM: 2 views of the right hip HISTORY: Right hip pain after fall COMPARISON: Pelvic radiograph 11/27/2018 FINDINGS: 2 views of the right hip shows an impacted fracture of the right femoral neck. No degenerat mannie changes seen in the right hip. IMPRESSION: Right femoral neck fracture
[2018-11-27] MEDS ORDERED: Potassium Chloride 20 MEQ TAB ONE (18:32)
--- NOTE | 2018-11-27 19:14 | CON ---
DATE OF CONSULTATION: HISTORY OF PRESENT ILLNESS: She is a 73-year-old woman, who fell about a week ago and has had pain in her right hip since that time. She is unable to walk, and has basically been bedridden. PAST MEDICAL HISTORY: Positive for pacemaker. She is on Eliquis for cardiac disease. ALLERGIES: SULFA. SOCIAL HISTORY: She vapes and has long history of smoking. Recent hospital admission for unknown causes, discharged about three weeks ago. REVIEW OF SYSTEMS: Positive for 40-pound weight loss. PHYSICAL EXAMINATION: Exam shows a cachectic woman, who is very concerned about dying and . She has severe pain with any manipulation of her right hip. She had 2+ pulses, posterior tib. IMAGING DATA: Radiograph show subcapital femoral neck fracture. PLAN: Plan is for hemiarthroplasty of the hip. Since she is on Eliquis, we will have to 48 hours. She understands risks of infection, stiffness, , transfusion, and . She elected to proceed with surgery. Job ID: [id number]
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
[2018-11-27] MEDS ORDERED: Ketorolac Tromethamine 30 MG/ML VIAL IVP PRN (19:39)
[2018-11-27] MEDS ORDERED: Acetaminophen 1,000 MG in Premix Bag 1 BAG IVPB SCH (20:00)
[2018-11-27] MEDS ORDERED: Morphine 2 MG/ML SYRINGE SLOW IVP PRN (21:23)
[2018-11-27] MEDS ORDERED: Ondansetron PF 4 MG/2 ML Vial IVP PRN (21:23)
[2018-11-27] MEDS ORDERED: traMADol HCl 50 MG TAB PO PRN ×2 (21:23)
[2018-11-27] MEDS ORDERED: Ondansetron ODT 4 MG TAB PO PRN (21:23)
[2018-11-27] MEDS ORDERED: Dextrose 50% Abboject 50 ML SYRINGE SLOW IVP PRN (21:23)
[2018-11-27] MEDS ORDERED: Dextrose 5% in Water 1,000 ML IV PRN (21:23)
[2018-11-27] MEDS ORDERED: Cyclobenzaprine 10 MG TAB PO PRN (21:23)
[2018-11-27] MEDS ORDERED: hydrALAZINE 20 MG/ML VIAL SLOW IVP PRN (21:23)
[2018-11-27] MEDS ORDERED: Magnesium 2 GM/50 ML 2 GM in Premix Bag 1 BAG IVPB SCH (22:00)
[2018-11-27] MEDS: Ibuprofen 200 MG TAB PO SCH (22:31)
[2018-11-27] MEDS: Famotidine 20 MG TAB PO SCH (22:31)
[2018-11-27] MEDS: Potassium Phosphate 30 MMOL in Sodium Chloride 0.9% 500 ML IVPB SCH (23:06)
[2018-11-28] MEDS: Acetaminophen 500 MG TAB PO SCH ×7 (01:30→22:36)
[2018-11-28] MEDS ORDERED: Lorazepam 2 MG/ML VIAL ONE ×2 (04:56→05:13)
[2018-11-28] MEDS ORDERED: Lorazepam 2 MG/ML VIAL SLOW IVP SCH (05:45)
[2018-11-28 06:08] LABS: #Lymphocytes 0.8 thou/uL (1.20-3.40); #Monocytes 0.7 thou/uL (0.11-0.59); #Neutrophils 7.4 thou/uL (1.40-6.50); %Basophils 0.3 % (0.0-1.0); %Eosinophils 0.4 % (0.0-10.0); %Lymphocytes 8.9 % (21.0-51.0); %Monocytes 7.4 % (0.0-10.0); %Neutrophils 83.1 % (42.0-75.0); Hemoglobin 14.6 g/dL (12.0-16.0); Mean Corpuscular HGB CONC 33.4 g/dL (32.0-36.0); Mean Corpuscular Hemoglobin 30.2 pg (27.0-31.0); Mean Corpuscular Volume 90.4 fL (78.0-98.0); Mean Platelet Volume 7.2 fL (7.4-10.4); Platelet Count 252 thou/uL (130-400); RBC Distribution Width 11.6 % (11.5-14.5); Red Blood Cell (RBC) Count 4.85 mill/uL (4.20-5.40); White Blood Cell (WBC) Count 8.9 thou/uL (4.8-10.8)
[2018-11-28 06:22] LABS: Anion Gap 22 mmol/L (10-20); BUN (Urea Nitrogen) 9 mg/dL (9.8-20.1); Calc. Creatinine Clearance 43 mL/min (70-130); Calcium 9.1 mg/dL (7.8-10.44); Carbon Dioxide 22 mmol/L (23-31); Chloride 94 mmol/L (98-107); Estimated GFR-MDRD 82; Glucose 188 mg/dL (83-110); Potassium 3.2 mmol/L (3.5-5.1); Sodium 135 mmol/L (136-145)
[2018-11-28 06:25] LABS: Anion Gap 22 mmol/L (10-20); BUN (Urea Nitrogen) 9 mg/dL (9.8-20.1); Calc. Creatinine Clearance 43 mL/min (70-130); Calcium 9.2 mg/dL (7.8-10.44); Carbon Dioxide 21 mmol/L (23-31); Chloride 94 mmol/L (98-107); Estimated GFR-MDRD 82; Glucose 184 mg/dL (83-110); Magnesium 2.5 mg/dL (1.6-2.6); Phosphorus 3.6 mg/dL (2.3-4.7); Potassium 3.2 mmol/L (3.5-5.1); Sodium 134 mmol/L (136-145)
[2018-11-28] MEDS ORDERED: Potassium Chloride 20 MEQ in Premix Bag 1 BAG IVPB SCH (06:45)
[2018-11-28] MEDS: Ibuprofen 200 MG TAB PO SCH ×3 (08:16→23:43)
[2018-11-28] MEDS: NS 0.9% w/ 20 MEQ KCL 1,000 ML/1,000 ML BAG IV SCH (09:41)
[2018-11-28] MEDS: Citalopram 20 MG TAB PO SCH ×3 (11:13→21:55)
[2018-11-28] MEDS: Thiamine 100 MG TAB PO SCH (11:13)
--- NOTE | 2018-11-28 14:21 | PRG ---
DATE OF SERVICE: 11/28/2018 SUBJECTIVE: The patient is currently on the telemetry floor. She is hospital day 2, status post ground level fall with remote presentation. The patient reportedly fell on Wednesday, stayed home attempting to do self-care, eventually came into the emergency department where she underwent evaluation and examination and was noted to have a right femoral neck fracture. The patient is on Eliquis, so she is not able to have surgery until tomorrow, which will be 48 hours after her last dose of Eliquis. The patient does have a history of seizure disorder and reportedly had seizure activity noted early this morning and was treated with 1 mg of Ativan. Upon review of her past admission in October, she was admitted for seizure activity and was evaluated by Neurology and Dr. Riggs recommended increasing her medicines. It is unclear whether the patient to include asking the if she has been compliant. OBJECTIVE: VITAL SIGNS: Temperature is 99.6, heart rate 95, blood pressure 135/90, respirations 20, and oxygen saturation is 93% on room air. GENERAL: The patient is resting in bed. She is asleep when we went in with verbal stimuli. She opens her eyes. She is very confused compared to her baseline from last night when I admitted her. This is likely due to her being somewhat postictal and the effects of 1 mg of Ativan and a woman who weighs 44 kg. She appears in no distress. She will follow simple commands. HEENT: Scant facial contusions are noted. LUNGS: Clear to auscultation with moderate inspiratory and expiratory effort, primarily due to consistently following commands. HEART: Regular rate and rhythm. ABDOMEN: Soft, flat, nontender with active bowel sounds. EXTREMITIES: Neurovascularly intact x4. LABORATORY FINDINGS: White blood cell count 8.9, hemoglobin 14.6, hematocrit 43.8, platelets 252. Sodium 135, potassium 3.2, chloride 94, CO2 of 22, BUN 9, creatinine 0.70, glucose 188, prolactin 19.8, pre-albumin 23, magnesium 2.5, phosphorus 3.6. IMAGING STUDIES: There are no radiographs reviewed this morning. ASSESSMENT/PLAN: 1. Status post ground level fall with remote presentation. 2. Right impacted femoral neck fracture. 3. History of seizure disorder, reported seizure activity earlier today. 4. History of Eliquis use. 5. Hypokalemia. 6. History of recent unexplained weight loss. The patient denies any recent illness, night sweats, fevers. PLAN: 1. Plan will be to continue observation on the telemetry unit. We put a consult in for Dr. Riggs, Neurology to re-evaluate the patient. Repeat her labs in the morning. Replace her potassium today. Continue holding her Eliquis and the remainder of her supportive care. The patient was examined this morning with Dr. Moody. 2. Of note, later in the morning, I return to the patient's bedside. She appeared closer to her baseline in mentation small. Her agreed that she had improved since earlier this morning, but is not quite back at her baseline. Job ID: [id number]
[2018-11-28] MEDS ORDERED: levETIRAcetam 500 MG TAB PO SCH ×2 (14:45→21:00)
[2018-11-28 15:42] VITALS: BMI 14.3
[2018-11-28] MEDS ORDERED: Prevnar 13-Val Conj/PF 0.5 ML SYRINGE IM ONE (21:00)
[2018-11-28] MEDS: levETIRAcetam 500 MG TAB PO SCH (21:56)
[2018-11-28] MEDS: Temazepam 15 MG CAP PO SCH (21:59)
[2018-11-28] MEDS ORDERED: diphenhydrAMINE 50 MG/ML VIAL IVP PRN (23:40)
[2018-11-28] MEDS: ALPRAZolam 1 MG TAB PO SCH (23:43)
[2018-11-28] MEDS: Famotidine 20 MG TAB PO SCH (23:43)
[2018-11-28] MEDS: Sodium Chloride 0.9% 1,000 ML IV SCH (23:44)
[2018-11-28] MEDS ORDERED: Sodium Chloride 0.9% 1,000 ML IV SCH (23:55)
[2018-11-29] MEDS ORDERED: Lorazepam 2 MG/ML VIAL SLOW IVP PRN (00:04)
[2018-11-29] MEDS: Acetaminophen 500 MG TAB PO SCH ×6 (02:53→21:03)
[2018-11-29] MEDS ORDERED: Haloperidol Lactate 5 MG/ML VIAL IM SCH (05:15)
[2018-11-29] MEDS: Ibuprofen 200 MG TAB PO SCH ×3 (05:26→21:04)
[2018-11-29 05:31] LABS: #Lymphocytes 1.1 thou/uL (1.20-3.40); #Monocytes 0.9 thou/uL (0.11-0.59); #Neutrophils 8.6 thou/uL (1.40-6.50); %Basophils 0.3 % (0.0-1.0); %Eosinophils 0.2 % (0.0-10.0); %Lymphocytes 10.1 % (21.0-51.0); %Monocytes 8.8 % (0.0-10.0); %Neutrophils 80.5 % (42.0-75.0); Mean Corpuscular HGB CONC 34.9 g/dL (32.0-36.0); Mean Corpuscular Volume 88.8 fL (78.0-98.0); Mean Platelet Volume 7.1 fL (7.4-10.4); Platelet Count 269 thou/uL (130-400); RBC Distribution Width 11.7 % (11.5-14.5); Red Blood Cell (RBC) Count 4.52 mill/uL (4.20-5.40); White Blood Cell (WBC) Count 10.7 thou/uL (4.8-10.8)
[2018-11-29 05:51] LABS: Anion Gap 17 mmol/L (10-20); BUN (Urea Nitrogen) 20 mg/dL (9.8-20.1); Calc. Creatinine Clearance 37 mL/min (70-130); Calcium 9.7 mg/dL (7.8-10.44); Carbon Dioxide 27 mmol/L (23-31); Chloride 95 mmol/L (98-107); Estimated GFR-MDRD 68; Glucose 128 mg/dL (83-110); Magnesium 2.4 mg/dL (1.6-2.6); Phosphorus 3.6 mg/dL (2.3-4.7); Potassium 3.9 mmol/L (3.5-5.1); Sodium 135 mmol/L (136-145)
[2018-11-29] MEDS: Levothyroxine Sodium 125 MCG TAB PO SCH (06:28)
[2018-11-29] MEDS ORDERED: Potassium Phosphate 15 MMOL in Sodium Chloride 0.9% 250 ML 250 ML IVPB SCH (07:30)
[2018-11-29] MEDS: levETIRAcetam 500 MG TAB PO SCH ×2 (09:14→21:03)
[2018-11-29] MEDS: Citalopram 20 MG TAB PO SCH ×3 (09:15→21:03)
[2018-11-29] MEDS: Thiamine 100 MG TAB PO SCH (09:15)
[2018-11-29] MEDS: Carvedilol 3.125 MG TAB PO SCH ×2 (09:15→17:32)
--- NOTE | 2018-11-29 09:39 | PRG ---
DATE OF SERVICE: 11/29/2018 SUBJECTIVE: Ms. Sorensen is a 73-year-old female, who came in status post unwitnessed fall on Eliquis at home with delayed admission around one week. The patient also has chronic seizure disorder and psychiatric disease. The patient has been reconciled on her pain medication per Neurology. However, earlier this evening , the patient became combative and did not want to take any p.o. med and she also pulled down her IV. Benadryl IV was ordered and continued to follow up. OBJECTIVE: VITAL SIGNS: Stable. Her labs look good. EXTREMITIES: She moves all of her extremities. No focal neurologic deficits. ASSESSMENT AND PLAN: Plan will be to continue supportive care, most likely using IV medication n.p.o. tonight. Anticipate she will go to the OR tomorrow for right femoral neck fracture. Job ID: [id number] MTDD
[2018-11-29] MEDS: Sodium Chloride 0.9% 1,000 ML IV SCH (09:55)
[2018-11-29] MEDS: ALPRAZolam 1 MG TAB PO SCH ×3 (10:44→21:16)
[2018-11-29] MEDS ORDERED: Sodium Chloride 0.9% 100 ML ONE (12:22)
[2018-11-29] MEDS ORDERED: Tranexamic Acid 1,000 MG/10 ML VIAL ONE (12:22)
--- NOTE | 2018-11-29 12:22 | PQF ---
DATE: 11-29-18 ATTN: MOSES SALES PA-C / GABBY HERNANDEZ PA-C Please exercise your independent, professional judgment in responding to the clarification form. Clinical indicators are provided on the bottom of this form for your review Please check appropriate box(s): [ ] Encephalopathy: Type: [ ] Acute [ ] Subacute [ ] Chronic Etiology: [ ] Metabolic [ ] Toxic [ ] Other (please specify) [ ] Transient Alteration of Awareness [ X] Other diagnosis _Delirium [ ] Unable to determine In addition, please specify: Present on Admission (POA): [ ] Yes [ ] No [ ] Unable to determine For continuity of documentation, please document condition throughout progress notes and discharge summary. Thank You. CLINICAL INDICATORS - SIGNS / SYMPTOMS / LABS: PN MOSES SALES 11-28-18: SHE IS VERY CONFUSED COMPARED TO HER BASELINE FROM LAST NIGHT WHEN I ADMITTED HER. THIS IS LIKELY D/T HER AUDRYE SOMEWHAT POSTICTAL AND THE EFFECTS OF 1MG OF ATIVAN AND A WOMEN WHO WEIGHS 44 KG. SHE APPEARED CLOSER TO HER BASELINE IN MENTATION [place]. HER AGREED THAT SHE HAD IMPROVED SINCE EARLIER THIS MORNING, BUT IS NOT QUITE BACK AT HER BASELINE. ESPINOZA GORDON PA-C 11-29-18: EARLIER THIS EVENING, THE PATIENT BECAME COMBATIVE AND DID NOT WANT TO ANY PO MED AND SHE ALSO PULLED DOWN HER IV. BMI 11-27-18: 14.3, H&P 11-27-18: CACHECTIC RISK FACTORS: PN [employer]ES SALES 11-28-18: SHE IS VERY CONFUSED COMPARED TO HER BASELINE FROM LAST NIGHT WHEN I ADMITTED HER. THIS IS LIKELY D/T HER AUDREY SOMEWHAT POSTICTAL AND THE EFFECTS OF 1MG OF ATIVAN AND A WOMEN WHO WEIGHS 44 KG. TREATMENTS: MOSES SALES PA-C 11-28-18: CONSULT DR. DAVENPORT TO RE-EVALUATE THE PATIENT. REPEAT HER LABS, REPLACE HER POTASSIUM (This form is maintained as a part of the permanent medical record) 2014 [employer]. All Rights Reserved TRISH [email or web address] Office: [phone] [facility]
--- NOTE | 2018-11-29 12:47 | PQF ---
Date: 11-29-18 ATTN: [employer]ES SAL[employer] PA-C / GABBY HERNANDEZ Please exercise your independent, professional judgment in responding to the clarification form. Clinical indicators are provided on the bottom of this form for your review Please check appropriate box(s): [ x ] Protein Calorie Malnutrition: [ ] Mild [ ] Moderate [ x ] Severe [ ] Other Malnutrition (please specify) __ [ ] Other diagnosis [ ] Unable to determine In addition, please specify: Present on Admission (POA): [ ] Yes [ ] No [ ] Unable to determine CLINICAL INDICATORS - SIGNS / SYMPTOMS / LABS: BMI 11-27-18: 14.3 ER NOTES 11-27-18: PT'S PARTNER STATES PT HAS LOST 40 POUNDS IN THE PAST 2 MONTHS EVEN THOUGH SHE HAS BEEN EATING NORMALLY, CACHECTIC, SHE APPEARS POORLY NOURISHED AND WAS HYPOKALEMIC SO WE WILL REPLACE HERE AND ADMIT. ER DX 11-27-18: RIGHT FEMORAL NECK, HYPOKALEMIA, MALNUTRITION DIRECTOR OF CHANNEL MARKETING CONSULT 11-27-18: observed severe muscle wasting to temporal region, clavicle, and scapula. Patient has fast loss to legs, arms, and chest. told RD last month that patient had lost 30# in 2 months, Patient is currently 2# heavier than on 11/03. Still extremely malnourished, no PO since arrival; severe muscle wasting to clavicle, temporal, and scapula regions; fat loss to arms, legs, and chest; 26% weight loss in 3 months per 's report RISK FACTORS: DIRECTOR OF CHANNEL MARKETING CONSULT 11-27-18: PMH INCLUDES: HYPOTHYROID, SEIZURE DISORDER, CAD , HLD, DEPRESSION, ANXIETY, SMOKER TREATMENT: DIRECTOR OF CHANNEL MARKETING CONSULT 11-27-18: 1. Continue Regular diet 2. Recommend Ensure Enlive TID between meals to promote intake 3. Recommend appetite stimulant if PO is <50% when able to eat. 4. If PO unable for patient, recommend tube feed Moderate Malnutrition (in acute illness) Energy Intake: <75% of estimated energy requirement for > 7 days Weight Loss: 1-2%/1 week; 5%/ 1 month; 7.5%/3 months Other: mild body fat loss; mild muscle mass loss; mild fluid accumulation; Severe Malnutrition (in acute illness) Energy Intake: < 50% of estimated energy requirement for > 5 days Weight Loss: >1-2%/1 week; >5%/1 month; >7.5%/3 months Other: moderate body fat loss; moderate muscle mass loss; moderate- severe fluid accumulation; measurably reduced asphalt paving foreman strength Moderate Malnutrition (in chronic illness) Energy Intake: <75% of estimated energy requirement for >1 month Weight Loss: 5%/1 month; 7.5%/3 months; 10%/6 months; 20%/1 year Other: mild body fat loss; mild muscle mass loss; mild fluid accumulation Severe Malnutrition (in chronic illness) Energy Intake: <75% of estimated energy requirement for >1 month Weight Loss: >5%/1 month; >7.5%/3 months; >10%/6 months; >20%/1 year Other: severe body fat loss; severe muscle mass loss; severe fluid accumulation ; measurably reduced asphalt paving foreman strength (This form is maintained as a part of the permanent medical record) 2014 [employer]. All Rights Reserved TRISH [email or web address] Office: [phone] [facility] HOSPITALLeticia
[2018-11-29] MEDS ORDERED: Fentanyl 100 MCG/2 ML VIAL ONE ×3 (12:58→15:32)
[2018-11-29] MEDS ORDERED: Phenylephrine HCL 10 MG/ML VIAL ONE (13:42)
[2018-11-29] MEDS ORDERED: Promethazine HCl 25 MG/ML VIAL SLOW IVP PRN (14:18)
[2018-11-29] MEDS ORDERED: Ondansetron HCl/PF 4 MG/2 ML Vial IVP PRN (14:18)
[2018-11-29] MEDS ORDERED: Promethazine HCl 25 MG/ML VIAL IM PRN (14:18)
--- NOTE | 2018-11-29 15:13 | RAD ---
RIGHT HIP TWO VIEWS: 11/29/18 INDICATION: History of postop. COMPARISON: Prior exam dated 11/27/18. FINDINGS: There has been interval placement of a right hip endoprosthesis. Prosthetic components project in exp ected position without gross evidence of complication. IMPRESSION: Postoperative right hip. POS: OFF
[2018-11-29] MEDS ORDERED: Dexmedetomidine 200 MCG/2 ML VIAL ONE (15:21)
[2018-11-29] MEDS ORDERED: Rocuronium Bromide 10 MG/ML (10ML VIAL) ONE (15:27)
[2018-11-29] MEDS ORDERED: PHENYLEPHRINE-NS 100 MCG/ML 10 ML SYRINGE ONE (15:27)
[2018-11-29] MEDS ORDERED: Lidocaine 1% PF 5 ML VIAL ONE (15:27)
[2018-11-29] MEDS ORDERED: PROPOFOL 200 MG/20 ML VIAL ONE (15:27)
[2018-11-29] MEDS ORDERED: Glycopyrrolate 0.2 MG/ML 5 ML SYRINGE ONE (15:27)
--- NOTE | 2018-11-29 16:32 | PRG ---
DATE OF SERVICE: 11/29/2018 SUBJECTIVE: The patient was seen today during morning rounds. She was sitting up in bed with no signs of acute distress. Overnight, the patient had agitation and was combative. She received 25 mg of Benadryl, 1 mg of Ativan x2, and 2 mg of Haldol. She was confused, but pleasant at the time of our evaluation. was at bedside. She is to go to the OR today for a right femoral neck fracture. She is n.p.o. with normal saline at 100 an hour. We did discuss with the patient's family about possible PEG tube placement for better nutrition and regular medications as she does not always cooperate with care. There is likely underlying dementia and/or psychiatric disorder, that is causing the patient to have issues with compliance with medications. OBJECTIVE: VITAL SIGNS: Temperature 99.4, pulse 95, respirations 18, oxygen saturation 96% on room air, blood pressure 125/82. GENERAL: A thin-appearing elderly female, sitting up in bed with no signs of acute distress. PULMONARY: Equal chest rise and fall. Clear breath sounds bilaterally. No signs of acute respiratory distress. CARDIAC: Regular rate and rhythm. No murmurs, gallops, or rubs. GI: Abdomen is soft, nontender, and nondistended. EXTREMITIES: Right-sided hip tenderness. Gross motor and sensation are intact. Pulses are intact in all 4 extremities. NEUROLOGIC: GCS is 14, -1 for confusion. LABORATORY FINDINGS: White count 10.7, hemoglobin 14.4, hematocrit 40.1, platelets 269. Sodium 135, potassium 3.9, chloride 95, carbon dioxide 27, BUN 20, creatinine 0.82, glucose 128, phosphorus 3.6, magnesium 2.4. DIAGNOSTIC FINDINGS: There are no new diagnostic findings to report. ASSESSMENT: 1. Status post mechanical fall on Eliquis. 2. Right femoral neck fracture. 3. History of hypothyroidism, seizures, coronary artery disease, hyperlipidemia, anxiety, and depression. 4. Hypokalemia and hypophosphatemia. 5. Acute delirium. 6. Failure to thrive. PLAN: The patient is to go to the OR today with Dr. Freitas of Orthopedic Surgery for fixation of the right femoral neck fracture. She will receive potassium and phosphorus replacement. She will receive postoperative labs tomorrow and trend hemoglobin as well as renal function. Postoperatively, she will be given a regular diet, and IV fluids will be discontinued. She is on all of her home medications except we will continue to hold her Eliquis. We did discuss with the patient's about possible PEG tube placement as she is very malnourished and has lost significant amount of weight recently. She also does not appear to be taking her medications regularly as she has had seizures while she has been in the hospital. She is also noncompliant with her medications intermittently. Postoperatively, she will work with Physical and Occupational Therapy. Dr. Riggs of Neurology is also seeing the patient and has started the patient on Keppra as well. We will further discuss possible PEG tube placement with the family starting tomorrow. The patient will be transferred off telemetry to a regular surgical nursing floor. She will need placement at SNF or acute rehab facility after working with physical therapy. Job ID: [id number]
[2018-11-29] MEDS: Simvastatin 40 MG TAB PO SCH (21:03)
[2018-11-29] MEDS: Famotidine 20 MG TAB PO SCH (21:03)
[2018-11-29] MEDS: Bupropion 150 MG XL TAB PO SCH (21:03)
[2018-11-29] MEDS: CEFAZOLIN 2 GM in Premix Bag 1 BAG IVPB SCH (21:04)
[2018-11-29] MEDS: Temazepam 15 MG CAP PO SCH (21:16)
--- NOTE | 2018-11-29 22:00 | OP ---
DATE OF PROCEDURE: 11/29/2018 PROCEDURE PERFORMED: Right hip hemiarthroplasty using a Juarez Accolade II stem, number 3 with a -4 neck and a 46 head. REPLENISHMENT SPECIALIST: Angel. BLOOD LOSS: 150. SPECIMEN: None. DRAINS: None. COMPLICATION: None. DESCRIPTION OF PROCEDURE: The patient was placed in lateral decubitus position. Right hip was prepped and draped in usual sterile fashion. We made an oblique incision in the greater trochanter. Dissection was carried down to the IT band, which was divided distally extended proximally. Self-retraining retractors were placed in the wound. Anterior one-third abductor mechanism was taken down using Bovie electrocautery. Hip capsule was incised. The femoral neck was cut and the femoral head was extracted and sized. The acetabulum was explored for loose bodies and loose bodies were removed. The acetabulum was irrigated. The femur was broached up to the appropriate size and appropriate size stem was impacted into place, along with the appropriate head. Hip was reduced without difficulty. Capsule was repaired with #2 Vicryl. Abductor was repaired with #2 Vicryl and #5 Ethibond. IT band was repaired with 2-0 Vicryl, #2 Quill, subcu closed with 0 Quill, skin was closed with 2-0 Monoderm and skin glue was applied. Job ID: [id number]
--- NOTE | 2018-11-29 22:51 | PRG ---
DATE OF SERVICE: SUBJECTIVE: This is a 73-year-old female, status post mechanical fall with a right femoral neck fracture. The patient is postop day 0 right hip hemiarthroplasty. The patient is awake, alert, sitting up in bed. The patient denies any pain at this time. The patient is tolerating liquids. The patient did not eat much of her actual dinner, but is drinking fluids. The patient's right hip dressing is clean, dry, and intact. Later in the evening the patient became hypotensive and tachycardic. OBJECTIVE: VITAL SIGNS: Stable, the patient remains afebrile. GENERAL: Elderly female, awake, alert, in no distress. EXTREMITIES: Moves all extremities, distal pulses 2+ in all extremities. ASSESSMENT: 1. Status post mechanical fall, on Eliquis. 2. Right femoral neck fracture, postop day 0 hemiarthroplasty of right hip. 3. History of hypothyroidism, seizures, coronary artery disease, hyperlipidemia, anxiety and depression. 4. Acute delirium. 5. Failure to thrive. 6. Hypovolemia. 7. Urinary retention. PLAN: NS bolus. Continue supportive care. In and out cath if bladder scan grater than 400ml. Continue pain regimen. We will continue to have Physical and Occupational Therapy work with the patient. Continue Keppra per Neurology. Possible PEG tube placement as the patient is not taking in enough calories. Job ID: [id number] [facility]
--- NOTE | 2018-11-29 23:19 | PRG ---
DATE OF SERVICE: 11/29/2018 IMPRESSION: Ms. Sorensen apparently had a breakthrough seizure based on her Dilantin level being 1.9. I suspect that she has been noncompliant. She suffered a fall, which resulted in a fracture of her hip. She is scheduled for surgery. She apparently has been a bit belligerent. This is not a new behavior based on past experience with her. Nursing staff reported very aggressive violent behavior in the past. She had her Keppra dose increased to 750 twice a day, going to follow her clinical course to see if this is effective. Job ID: [id number]
[2018-11-29] MEDS ORDERED: Sodium Chloride 0.9% 500 ML IVPB SCH (23:45)
[2018-11-30] MEDS ORDERED: Sodium Chloride 0.9% 1,000 ML IV SCH (00:30)
[2018-11-30] MEDS: Acetaminophen 500 MG TAB PO SCH ×5 (00:36→19:30)
[2018-11-30 04:46] LABS: #Eosinphils 0.1 thou/uL (0.0-0.7); #Lymphocytes 1.3 thou/uL (1.20-3.40); #Monocytes 1.5 thou/uL (0.11-0.59); #Neutrophils 8.1 thou/uL (1.40-6.50); %Basophils 0.4 % (0.0-1.0); %Eosinophils 0.6 % (0.0-10.0); %Lymphocytes 12.1 % (21.0-51.0); %Monocytes 13.3 % (0.0-10.0); %Neutrophils 73.5 % (42.0-75.0); Hemoglobin 11.2 g/dL (12.0-16.0); Mean Corpuscular HGB CONC 35.1 g/dL (32.0-36.0); Mean Corpuscular Hemoglobin 31.3 pg (27.0-31.0); Mean Corpuscular Volume 89.2 fL (78.0-98.0); Mean Platelet Volume 6.9 fL (7.4-10.4); Platelet Count 235 thou/uL (130-400); RBC Distribution Width 11.5 % (11.5-14.5); Red Blood Cell (RBC) Count 3.58 mill/uL (4.20-5.40); White Blood Cell (WBC) Count 11.1 thou/uL (4.8-10.8)
[2018-11-30 05:15] LABS: Anion Gap 13 mmol/L (10-20); BUN (Urea Nitrogen) 18 mg/dL (9.8-20.1); Calc. Creatinine Clearance 43 mL/min (70-130); Calcium 8.2 mg/dL (7.8-10.44); Carbon Dioxide 25 mmol/L (23-31); Chloride 96 mmol/L (98-107); Estimated GFR-MDRD 83; Glucose 119 mg/dL (83-110); Magnesium 1.9 mg/dL (1.6-2.6); Phosphorus 2.2 mg/dL (2.3-4.7); Potassium 3.6 mmol/L (3.5-5.1); Sodium 130 mmol/L (136-145)
[2018-11-30] MEDS: Ibuprofen 200 MG TAB PO SCH ×3 (05:29→21:55)
[2018-11-30] MEDS: CEFAZOLIN 2 GM in Premix Bag 1 BAG IVPB SCH ×2 (05:29→13:41)
[2018-11-30] MEDS: Levothyroxine Sodium 125 MCG TAB PO SCH (05:29)
[2018-11-30] MEDS ORDERED: Potassium Phosphate 30 MMOL, Magnesium Sulfate 2 GM in Sodium Chloride 0.9% 250 ML 250 ML IVPB SCH (06:45)
[2018-11-30] MEDS ORDERED: Magnesium Sulfate 2 GM in Sodium Chloride 0.9% 100 ML IVPB SCH (06:45)
[2018-11-30] MEDS: Bupropion 150 MG XL TAB PO SCH ×2 (08:17→21:54)
[2018-11-30] MEDS: levETIRAcetam 500 MG TAB PO SCH ×2 (08:17→21:54)
[2018-11-30] MEDS: Carvedilol 3.125 MG TAB PO SCH ×2 (08:17→17:12)
--- NOTE | 2018-11-30 08:17 | RAD ---
EXAM: CHEST ONE VIEW HISTORY: Postoperative tachycardia. COMPARISON: 11/27/2018. FINDINGS: A triple lead left subclavian AICD device remains in place. The cardiac silhouette is magnified by pr ojection. The pulmonary vasculature is within normal limits The lungs are clear. Vascular calcifications are seen in the thoracic as well as visualized upper abdominal aorta. Surgical clips o verlie the right upper quadrant. Remote left-sided rib fractures are again seen. There has been no interval change when compared to the prior exam. IMPRESSION: No acute cardiopulmonary process.
[2018-11-30] MEDS: Citalopram 20 MG TAB PO SCH ×3 (08:18→21:54)
[2018-11-30] MEDS: Thiamine 100 MG TAB PO SCH (08:18)
[2018-11-30] MEDS: ALPRAZolam 1 MG TAB PO SCH ×3 (08:23→21:55)
[2018-11-30] MEDS ORDERED: Aspirin 81 mg Enteric Coated Tablet PO SCH (09:00)
[2018-11-30] MEDS ORDERED: Haloperidol Lactate 5 MG/ML VIAL SLOW IVP SCH (09:11)
[2018-11-30] MEDS ORDERED: diphenhydrAMINE 50 MG/ML VIAL ONE (09:12)
[2018-11-30] MEDS ORDERED: Haloperidol Lactate 5 MG/ML VIAL ONE (09:12)
[2018-11-30] MEDS ORDERED: diphenhydrAMINE 50 MG/ML VIAL IVP SCH (09:15)
[2018-11-30] MEDS ORDERED: Lorazepam 2 MG/ML VIAL ONE (09:21)
[2018-11-30] MEDS ORDERED: Lorazepam 2 MG/ML VIAL SLOW IVP SCH (09:30)
[2018-11-30] MEDS ORDERED: Digoxin 0.5 MG/2 ML AMP SLOW IVP SCH (09:30)
[2018-11-30] MEDS ORDERED: Haloperidol Lactate 5 MG/ML VIAL SLOW IVP PRN (15:10)
--- NOTE | 2018-11-30 16:05 | PRG ---
DATE OF SERVICE: 11/30/2018 SUBJECTIVE: The patient was seen this morning. Nursing reported elevated heart rate of 145, but otherwise hemodynamically stable. The patient was very agitated at the time of our evaluation. EKG demonstrated sinus tach, but it was suspected that the patient may have her underlying atrial fibrillation. The patient's underlying atrial fibrillation needed further rate control as she has not been taking her medications as appropriately prescribed. She did receive Ativan, Haldol, and diphenhydramine as well as digoxin at the time at the time of rounds in the morning. OBJECTIVE: VITAL SIGNS: Temperature 97.7, pulse 95, respirations 20, oxygen saturation 100% on room air, blood pressure 116/82. GENERAL: A thin, elderly female, sitting up in bed with some moderate agitation. PULMONARY: Equal chest rise and fall. Clear breath sounds bilaterally. No signs of acute respiratory distress. CARDIAC: Tachycardic but regular rhythm. No murmurs, gallops, or rubs. GI: Abdomen is soft, nontender, nondistended. EXTREMITIES: 2+ pulses in all extremities. No significant swelling noted gross motor and sensation is intact. LABORATORY FINDINGS: White count 11.1, hemoglobin 11.2, hematocrit 31.9, platelets 235. Sodium 130, potassium 3.6, chloride 96, carbon dioxide 25, BUN 18, creatinine 0.69, glucose 119, phosphorus 2.2 magnesium 1.9. Cortisol 24.0. DIAGNOSTIC FINDINGS: Chest x-ray completed this morning demonstrates no acute cardiopulmonary process. ASSESSMENT: 1. Status post mechanical fall, on Eliquis. 2. Right femoral neck fracture. 3. History of hypothyroidism, seizures, coronary artery disease, hyperlipidemia, anxiety, and depression. 4. Acute hypophosphatemia, hypokalemia, and hypomagnesemia. 5. Acute hyponatremia. PLAN: The patient has been restarted on all of her home medications. She is much less agitated now and her heart rate is back to normal sinus. We will replace potassium phosphorus and magnesium. Discontinue IV fluids. Continue to monitor urinary output. We will repeat laboratory studies tomorrow for further evaluation of postop bleeding and electrolyte abnormalities. Continue physical and occupational therapy. care home screen was placed chest. She will likely need discharge to a facility. Continue to monitor her nutritional status. The patient was seen and examined by Dr. Mora and myself this morning during rounds. Job ID: [id number]
--- NOTE | 2018-11-30 18:14 | EKG ---
Test Reason : HIGH HR Blood Pressure : / mmHG Vent. Rate : 132 BPM Atrial Rate : 132 BPM P-R Int : 156 ms QRS Dur : 088 ms QT Int : 296 ms P-R-T Axes : 000 -14 -58 degrees QTc Int : 438 ms A fib with RVR Septal infarct , age undetermined Nonspecific ST-T changes Abnormal ECG When compared with ECG of 29-NOV-2018 11:38, Premature supraventricular complexes are now Present Septal infarct is now Present Confirmed by DR. Shea ARELLANO ([id number]) on 11/30/2018 6:13:38 PM Referred By: JUNO Confirmed By:DR. Shea ARELLANO
[2018-11-30] MEDS: Famotidine 20 MG TAB PO SCH (21:54)
[2018-11-30] MEDS: Simvastatin 40 MG TAB PO SCH (21:54)
[2018-11-30] MEDS: Temazepam 15 MG CAP PO SCH (21:55)
--- NOTE | 2018-11-30 22:57 | PRG ---
DATE OF SERVICE: 11/30/2018 SUBJECTIVE: The patient remains on the surgical floor. The patient is sitting up in hospital bed with sitter at bedside. The patient is awake, alert, in no distress, oriented to person only. The patient is in soft wrist restraints at this time, nurse reports they were placed this afternoon as the patient was extremely agitated and attempting to get out of bed. The patient follows simple commands at this time. The patient denies any pain at this time. The patient's right hip dressing is clean, dry, and intact. The patient is continuing to tolerate liquids. The patient continues to have minimal food intake. Ensure supplements have been added also 3 times a day. No documented bowel movements since admission. OBJECTIVE: VITAL SIGNS: Stable. The patient remains afebrile. GENERAL: Elderly appearing female, sitting up in bed. PULMONARY: Equal chest rise and fall. Bilateral breath sounds clear. EXTREMITIES: Moves all extremities. 2+ pedal pulses in all extremities. ASSESSMENT: 1. Status post mechanical fall, on Eliquis. 2. Right femoral neck fracture, postop day #1 right hip hemiarthroplasty. 3. History of hypothyroidism, seizures, coronary artery disease, hyperlipidemia, anxiety, and depression. 4. Acute hypophosphatemia, hypokalemia, hypomagnesemia. 5. Acute hyponatremia. 6. Urinary retention. PLAN: Continue supportive care. Continue to have Physical Therapy and Occupational Therapy work with the patient. The patient did have some urinary retention this evening and a Freedman catheter was placed. We will continue to monitor the patient's nutritional status and continue free water restriction to 1 L a day. Start scheduled bowel regimen. Job ID: [id number] [facility]
[2018-11-30] MEDS ORDERED: Senokot S 8.6-50 MG TAB PO SCH (23:15)
[2018-12-01] MEDS: ALPRAZolam 1 MG TAB PO SCH ×4 (00:17→21:30)
[2018-12-01] MEDS: Temazepam 15 MG CAP PO SCH ×2 (00:17→21:30)
[2018-12-01] MEDS: Acetaminophen 500 MG TAB PO SCH ×4 (02:00→19:29)
[2018-12-01 05:50] LABS: Anion Gap 9 mmol/L (10-20); BUN (Urea Nitrogen) 7 mg/dL (9.8-20.1); Calc. Creatinine Clearance 57 mL/min (70-130); Calcium 8.5 mg/dL (7.8-10.44); Carbon Dioxide 32 mmol/L (23-31); Chloride 92 mmol/L (98-107); Estimated GFR-MDRD Greater than 90; Glucose 101 mg/dL (83-110); Magnesium 2.2 mg/dL (1.6-2.6); Phosphorus 2.2 mg/dL (2.3-4.7); Potassium 3.7 mmol/L (3.5-5.1); Sodium 129 mmol/L (136-145)
[2018-12-01] MEDS: Levothyroxine Sodium 125 MCG TAB PO SCH (06:37)
[2018-12-01] MEDS: Ibuprofen 200 MG TAB PO SCH ×3 (06:37→21:34)
[2018-12-01] MEDS: Bupropion 150 MG XL TAB PO SCH (09:03)
[2018-12-01] MEDS: Aspirin 81 mg Enteric Coated Tablet PO SCH ×2 (09:03→21:29)
[2018-12-01] MEDS: levETIRAcetam 500 MG TAB PO SCH ×2 (09:03→21:29)
[2018-12-01] MEDS: Polyethylene Glycol 3350 17 GM Packet PO SCH (09:03)
[2018-12-01] MEDS: Carvedilol 3.125 MG TAB PO SCH ×2 (09:04→21:30)
[2018-12-01] MEDS: Thiamine 100 MG TAB PO SCH (09:05)
[2018-12-01] MEDS: Folic Acid 1 MG TAB PO SCH (09:05)
[2018-12-01] MEDS: Citalopram 20 MG TAB PO SCH ×3 (09:05→21:30)
[2018-12-01] MEDS: Senokot S 8.6-50 MG TAB PO SCH ×2 (09:06→21:29)
--- NOTE | 2018-12-01 11:58 | PRG ---
DATE OF SERVICE: 12/01/2018 SUBJECTIVE: The patient was seen this morning, sitting up in bed with no signs of acute distress. Overnight, she had no acute events. Behavior has been much better. The patient's rate has been controlled on her previous home medications. She does not remember working with Physical Therapy, but she was open to working with them today. She is taking all of her home medications and eating about 20% to 25% of her meals. She was open to drinking the Boost shakes. PHYSICAL EXAMINATION: VITAL SIGNS: Temperature 98.0, pulse 97, respirations 16, oxygen saturation 98% on room air, blood pressure 119/82. GENERAL: Elderly female, sitting up in bed with no signs of acute distress. PULMONARY: Equal chest rise and fall. Clear breath sounds bilaterally. No signs of acute distress. CARDIAC: Regular rate and rhythm. No murmurs, gallops, or rubs. GI: Abdomen is soft, nontender, and nondistended. EXTREMITIES: 2+ pulses in all extremities. No significant swelling noted. LABORATORY FINDINGS: White count 11.1, hemoglobin 11.2, hematocrit 31.9, platelets 235. Sodium 129, potassium 3.7, chloride 92, carbon dioxide 32, BUN 7, creatinine 0.53, glucose 101, phosphorus 2.2, magnesium 2.2. DIAGNOSTIC FINDINGS: There are no new diagnostic findings to report. ASSESSMENT: 1. Status post mechanical fall from standing, on Eliquis. 2. Right femoral neck fracture, status post repair. 3. History of hypothyroidism, seizures, coronary artery disease, hyperlipidemia, anxiety, depression, atrial fibrillation, and alcohol abuse. 4. Hyponatremia, stable. 5. Acute hypophosphatemia and hypokalemia. PLAN: We will continue the patient's 1 L free water restrictions. We will encourage Gatorade and Boost shakes along with meals with extra sodium. Discontinue Wellbutrin as it lowers the seizure threshold. We will add Senokot and MiraLAX to the patient's bowel regimen. Aspirin will be 81 mg b.i.d. for DVT prophylaxis. She will continue to work with Physical and Occupational Therapy, who recommend care home placement. Previously, the patient's family has refused placement in a care home facility. Case Management will still offer this to the patient. The patient's medical decision maker is the . He is at the bedside. Job ID: [id number]
[2018-12-01] MEDS ORDERED: Sodium Chloride 0.9% 500 ML IV SCH (18:15)
[2018-12-01] MEDS: Simvastatin 40 MG TAB PO SCH (21:29)
--- NOTE | 2018-12-01 21:44 | PRG ---
DATE OF SERVICE: 12/01/2018 SUBJECTIVE: The patient remains on the surgical floor, awake, alert, sitting up in hospital bed. The patient is extremely talkative and pleasant to staff and sitter. The patient voices no complaints at this time. The patient denies any pain. The patient follows simple commands. The patient did eat most of her dinner this evening. The patient's blood pressure has improved with a 500 mL normal saline bolus. Earlier today, staff found the patient's home medications in the hospital bed, it was confirmed by pharmacy that it was Unisom that the patient has possibly been taking. This could be why the patient's blood pressure has dropped. OBJECTIVE: VITAL SIGNS: Stable, the patient remains afebrile. GENERAL: Elderly frail female, sitting up in bed, in no acute distress. PULMONARY: Equal chest rise and fall, bilateral breath sounds clear, no respiratory distress. EXTREMITIES: Distal pulses intact. Right hip dressing clean, dry, and intact. ASSESSMENT: 1. Status post mechanical fall from standing, on Eliquis. 2. Right femoral neck fracture, status post repair. 3. History of hypothyroidism, seizures, coronary artery disease, hyperlipidemia, anxiety, depression, atrial fibrillation, and alcohol abuse. 4. Hyponatremia, stable. 5. Acute hypophosphatemia and hypokalemia. PLAN: Continue supportive care. Continue free water restriction to 1 L daily. We will encourage Gatorade and Boost shakes along with meals and extra sodium. We will continue mechanical and chemical DVT prophylaxis. We will continue to have the patient work with physical and occupational therapy. The patient is pending placement to a care home facility. Job ID: [id number] [facility]
[2018-12-02] MEDS: Acetaminophen 500 MG TAB PO SCH ×4 (02:21→20:32)
[2018-12-02] MEDS: Ibuprofen 200 MG TAB PO SCH ×3 (05:27→21:11)
[2018-12-02] MEDS: Levothyroxine Sodium 125 MCG TAB PO SCH (05:27)
[2018-12-02 05:46] LABS: #Eosinphils 0.2 thou/uL (0.0-0.7); #Lymphocytes 1.2 thou/uL (1.20-3.40); #Monocytes 0.8 thou/uL (0.11-0.59); #Neutrophils 5.8 thou/uL (1.40-6.50); %Basophils 0.5 % (0.0-1.0); %Eosinophils 2.2 % (0.0-10.0); %Lymphocytes 15.2 % (21.0-51.0); %Monocytes 10.1 % (0.0-10.0); Hemoglobin 10.9 g/dL (12.0-16.0); Mean Corpuscular HGB CONC 33.5 g/dL (32.0-36.0); Mean Corpuscular Hemoglobin 30.9 pg (27.0-31.0); Mean Corpuscular Volume 92.2 fL (78.0-98.0); Mean Platelet Volume 7.3 fL (7.4-10.4); Platelet Count 201 thou/uL (130-400); RBC Distribution Width 11.8 % (11.5-14.5); Red Blood Cell (RBC) Count 3.53 mill/uL (4.20-5.40); White Blood Cell (WBC) Count 8.1 thou/uL (4.8-10.8)
[2018-12-02 05:55] LABS: Anion Gap 11 mmol/L (10-20); BUN (Urea Nitrogen) 10 mg/dL (9.8-20.1); Calc. Creatinine Clearance 51 mL/min (70-130); Calcium 8.3 mg/dL (7.8-10.44); Carbon Dioxide 28 mmol/L (23-31); Chloride 94 mmol/L (98-107); Estimated GFR-MDRD Greater than 90; Glucose 98 mg/dL (83-110); Phosphorus 2.5 mg/dL (2.3-4.7); Potassium 3.1 mmol/L (3.5-5.1); Sodium 130 mmol/L (136-145)
[2018-12-02] MEDS: Polyethylene Glycol 3350 17 GM Packet PO SCH (08:27)
[2018-12-02] MEDS: levETIRAcetam 500 MG TAB PO SCH ×2 (08:28→20:25)
[2018-12-02] MEDS: Citalopram 20 MG TAB PO SCH ×3 (08:29→20:27)
[2018-12-02] MEDS: Thiamine 100 MG TAB PO SCH (08:29)
[2018-12-02] MEDS: Folic Acid 1 MG TAB PO SCH (08:29)
[2018-12-02] MEDS: Senokot S 8.6-50 MG TAB PO SCH ×2 (08:29→20:24)
[2018-12-02] MEDS: ALPRAZolam 1 MG TAB PO SCH ×3 (08:29→20:26)
[2018-12-02] MEDS: Carvedilol 3.125 MG TAB PO SCH ×2 (08:29→17:30)
[2018-12-02] MEDS: Aspirin 81 mg Enteric Coated Tablet PO SCH ×2 (08:30→20:27)
--- NOTE | 2018-12-02 14:49 | PRG ---
DATE OF SERVICE: 12/02/2018 SUBJECTIVE: The patient was seen this morning, lying in bed. She was asleep and resting comfortably. Nursing reported she had no acute events overnight and her blood pressure had responded appropriately to IV fluids. Freedman is in place with clear yellow urine in bag. at bedside reported that the patient was doing better yesterday and today than previously. We did discuss possible discharge to a [place] [facility] [place] facility or acute rehab. The patient's was not for this and reports the patient will likely want to go home. OBJECTIVE: VITAL SIGNS: Temperature 98.5, pulse 95, respirations 17, oxygen saturation 96% on room air, blood pressure 106/73. GENERAL: A frail, elderly female, lying in bed, asleep, but no signs of acute distress. PULMONARY: Equal chest rise and fall. Clear breath sounds bilaterally. No signs of acute respiratory distress. CARDIAC: Regular rate and rhythm. No murmurs, gallops, or rubs. GI: Abdomen is soft, nontender, nondistended. EXTREMITIES: 2+ pulses in all extremities. No significant swelling noted. Gross motor and sensation are intact. NEUROLOGIC: GCS is 14, -1 for confusion. This is her baseline. LABORATORY FINDINGS: White count 8.1, hemoglobin 10.9, hematocrit 32.6, platelets 201. Sodium 130, potassium 3.1, chloride 94, carbon dioxide 28, BUN 10, creatinine 0.89, glucose 98, phosphorus 2.5, magnesium 2.0. DIAGNOSTIC FINDINGS: There are no new diagnostic findings to report. ASSESSMENT: 1. Status post mechanical fall, on Eliquis. 2. Right femoral neck fracture, status post repair. 3. History of hypothyroidism, seizures, coronary artery disease, hyperlipidemia, anxiety, depression, atrial fibrillation, alcohol use, psychogenic polydipsia. 4. Acute hypokalemia and hypophosphatemia. 5. Chronic hyponatremia. PLAN: We will continue physical and occupational therapy. We will discontinue Freedman tomorrow, it was replaced yesterday for urinary retention. Replace phosphorus and potassium via IV route. Continue free water restrictions. Encourage Gatorade and salt intake. It was reported that the patient had multiple blue gel capsules in her bed yesterday. The medication was sent to Pharmacy and was found to be Unisom. It is unclear how many of the medications that the patient took, but in the afternoon, she was hypotensive, tachycardic, and agitated. It is likely the medication has been causing some of her issues with hemodynamics, urinary retention, and agitation as well. We will continue to closely monitor the patient. The patient is working with PT/OT. She is going to need placement at rehab or [place] [facility] facility. The patient's POA is her , who is refusing this and wants to take the patient home. She is not safe to be discharged at this time. We did discuss Home Health with home physical therapy. The patient's was not very open to this idea because of cost. I did ask the caser to look into the potential cost for having home physical therapy. At this time, we will continue supportive care and continue to work with the family to come up with an appropriate discharge plan that is safe for the patient. Job ID: [id number]
[2018-12-02] MEDS: Simvastatin 40 MG TAB PO SCH (20:25)
[2018-12-02] MEDS: Temazepam 15 MG CAP PO SCH (20:27)
[2018-12-02] MEDS ORDERED: Polyethylene Glycol 3350 17 GM Packet PO PRN (21:52)
[2018-12-02] MEDS ORDERED: Senokot S 8.6-50 MG TAB PO PRN (21:53)
--- NOTE | 2018-12-02 22:27 | PRG ---
DATE OF SERVICE: 12/02/2018 SUBJECTIVE: The patient remains on the surgical floor, awake, alert, in no distress, sitting up in bed. The patient denies any pain at this time. The patient continues to tolerate a regular diet and fluids. The patient has had frequent bowel movements according to the patient and the patient's nurse. OBJECTIVE: VITAL SIGNS: Stable, the patient remains afebrile. GENERAL: Frail, elderly female, sitting up in bed, in no acute distress. PULMONARY: Equal chest rise and fall, bilateral breath sounds clear, no respiratory distress. EXTREMITIES: 2+ pulses in all extremities, right hip dressing clean, dry, and intact. ASSESSMENT: 1. Status post mechanical fall, on Eliquis. 2. Right femoral neck fracture, status post repair. 3. History of hypothyroidism, seizures, coronary artery disease, hyperlipidemia, anxiety, depression, atrial fibrillation, alcohol use, psychogenic polydipsia. 4. Acute hypokalemia and hypophosphatemia. 5. Chronic hyponatremia. PLAN: Continue to have Physical and Occupational Therapy work with the patient. Continue supportive care and p.r.n. pain regimen. We will remove the patient's Freedman tomorrow. Continue free water restriction. Continue to encourage Gatorade and salt intake. Case Management working with the patient and family for potential home health and physical therapy. The patient's does not want her to go to a skilled facility. Job ID: [id number] [facility]
[2018-12-03] MEDS: Acetaminophen 500 MG TAB PO SCH ×4 (01:17→18:22)
[2018-12-03 05:11] LABS: Anion Gap 13 mmol/L (10-20); BUN (Urea Nitrogen) 6 mg/dL (9.8-20.1); Calc. Creatinine Clearance 54 mL/min (70-130); Calcium 8.6 mg/dL (7.8-10.44); Carbon Dioxide 23 mmol/L (23-31); Chloride 98 mmol/L (98-107); Estimated GFR-MDRD Greater than 90; Glucose 99 mg/dL (83-110); Magnesium 1.8 mg/dL (1.6-2.6); Phosphorus 3.2 mg/dL (2.3-4.7); Potassium 3.4 mmol/L (3.5-5.1); Sodium 131 mmol/L (136-145)
[2018-12-03] MEDS: Levothyroxine Sodium 125 MCG TAB PO SCH (06:08)
[2018-12-03] MEDS: Ibuprofen 200 MG TAB PO SCH ×3 (06:08→21:12)
[2018-12-03] MEDS: levETIRAcetam 500 MG TAB PO SCH ×2 (08:10→20:15)
[2018-12-03] MEDS: Carvedilol 3.125 MG TAB PO SCH ×4 (08:10→16:21)
[2018-12-03] MEDS: Aspirin 81 mg Enteric Coated Tablet PO SCH ×2 (08:11→20:15)
[2018-12-03] MEDS: Folic Acid 1 MG TAB PO SCH (08:11)
[2018-12-03] MEDS: Thiamine 100 MG TAB PO SCH (08:11)
[2018-12-03] MEDS: ALPRAZolam 1 MG TAB PO SCH ×3 (08:11→20:15)
[2018-12-03] MEDS: Citalopram 20 MG TAB PO SCH ×3 (08:11→20:15)
[2018-12-03] MEDS ORDERED: Magnesium 2 GM/50 ML 2 GM in Premix Bag 1 BAG IVPB SCH (08:15)
--- NOTE | 2018-12-03 12:20 | PRG ---
DATE OF SERVICE: 12/03/2018 SUBJECTIVE: The patient was seen this morning sitting up in bed and was very pleasant. She reports pain is well controlled and she slept well overnight. Her Freedman was removed this morning. She is completing a void trial. She continues to work with Physical and Occupational Therapy. She had a bowel movement. OBJECTIVE: VITAL SIGNS: Temperature 98.4, pulse 87, respirations 18, oxygen saturation 95% on room air, blood pressure 103/71. GENERAL: Frail, elderly female, sitting up in bed with no signs of acute distress. PULMONARY: Equal chest rise and fall. Clear breath sounds bilaterally. No signs of acute respiratory distress. CARDIAC: Regular rate and rhythm. No murmurs, gallops, or rubs. GI: Abdomen is soft, nontender, nondistended. EXTREMITIES: 2+ pulses in all extremities. No significant swelling noted. Gross motor and sensation are intact. LABORATORY FINDINGS: Sodium 131, potassium 3.4, chloride 98, carbon dioxide 23, BUN 6, creatinine 0.56, phosphorus 3.2, magnesium 1.8. DIAGNOSTIC FINDINGS: There are no new diagnostic findings to report. ASSESSMENT: 1. Status post mechanical fall on Eliquis. 2. Right femoral neck fracture, status post repair. 3. History of hypothyroidism, seizures, coronary artery disease, hyperlipidemia, anxiety, depression, atrial fibrillation, alcohol abuse, psychogenic polydipsia. 4. Acute hyponatremia, improving. 5. Hypokalemia, hypophosphatemia, and hypomagnesemia. PLAN: We will continue the patient's current diet and pain regimen. Continue 1 L free water restrictions. We will replace phosphorus, magnesium, and potassium today via IV and repeat electrolytes in the morning. Job ID: [id number]
--- NOTE | 2018-12-03 15:56 | EKG ---
Test Reason : Blood Pressure : / mmHG Vent. Rate : 078 BPM Atrial Rate : 078 BPM P-R Int : 148 ms QRS Dur : 094 ms QT Int : 440 ms P-R-T Axes : 064 -14 054 degrees QTc Int : 501 ms Normal sinus rhythm Incomplete right bundle branch block Anterior infarct , age undetermined Abnormal ECG Confirmed by RICHA GONSALES ([id number]), deputy editor in chief CRISTI MCHUGH ([id number]) on 12/03/2018 3:55:52 PM Referred By: Confirmed By:RICHA GONSALES
[2018-12-03] MEDS: Simvastatin 40 MG TAB PO SCH (20:15)
[2018-12-03] MEDS: Temazepam 15 MG CAP PO SCH (20:16)
--- NOTE | 2018-12-03 22:27 | PRG ---
DATE OF SERVICE: 12/03/2018 SUBJECTIVE: The patient remains on the surgical floor. The patient is awake, alert, in no distress, sitting up in hospital bed. The patient denies any pain at this time. The patient continues to tolerate a regular diet and fluids. The patient voices no complaints or concerns at this time. OBJECTIVE: VITAL SIGNS: Stable, the patient remains afebrile. GENERAL: Frail, elderly female, sitting up in hospital bed, in no acute distress. PULMONARY: Equal chest rise and fall, no respiratory distress. EXTREMITIES: 2+ pulses in all extremities, no pedal edema. Right hip dressing clean, dry, and intact. ASSESSMENT: 1. Status post mechanical fall, on Eliquis now. 2. Right femoral neck fracture, status post repair. 3. History of hypothyroidism, seizures, coronary artery disease, hyperlipidemia, anxiety, depression, atrial fibrillation, alcohol use, psychogenic polydipsia. 4. Acute hypokalemia and hypophosphatemia. 5. Chronic hyponatremia. PLAN: Continue physical and occupational therapy. Continue supportive care and p.r.n. pain regimen. Continue free water restriction to 1 L daily. Pending plan for home with home health versus skilled placement. Case Management to work with patient. Adult Protective Services also planning to come visit on Wednesday. Job ID: [id number]
[2018-12-04] MEDS: Acetaminophen 500 MG TAB PO SCH ×4 (02:01→20:10)
[2018-12-04 05:44] LABS: Anion Gap 12 mmol/L (10-20); BUN (Urea Nitrogen) 7 mg/dL (9.8-20.1); Calc. Creatinine Clearance 52 mL/min (70-130); Calcium 8.7 mg/dL (7.8-10.44); Carbon Dioxide 28 mmol/L (23-31); Chloride 96 mmol/L (98-107); Estimated GFR-MDRD Greater than 90; Glucose 112 mg/dL (83-110); Phosphorus 2.9 mg/dL (2.3-4.7); Potassium 3.7 mmol/L (3.5-5.1); Sodium 132 mmol/L (136-145)
[2018-12-04] MEDS: Ibuprofen 200 MG TAB PO SCH ×3 (05:53→20:09)
[2018-12-04] MEDS: Levothyroxine Sodium 125 MCG TAB PO SCH (05:54)
[2018-12-04] MEDS ORDERED: PHOS-NAK 1 PKT PACK PO SCH (07:45)
[2018-12-04] MEDS ORDERED: Potassium Chloride 20 MEQ TAB PO SCH (07:45)
[2018-12-04] MEDS: Carvedilol 3.125 MG TAB PO SCH ×2 (08:24→17:44)
[2018-12-04] MEDS: Citalopram 20 MG TAB PO SCH ×3 (08:24→20:08)
[2018-12-04] MEDS: levETIRAcetam 500 MG TAB PO SCH ×2 (08:24→20:09)
[2018-12-04] MEDS: Folic Acid 1 MG TAB PO SCH (08:24)
[2018-12-04] MEDS: Aspirin 81 mg Enteric Coated Tablet PO SCH ×2 (08:24→20:08)
[2018-12-04] MEDS: ALPRAZolam 1 MG TAB PO SCH ×3 (08:24→20:10)
[2018-12-04] MEDS: Thiamine 100 MG TAB PO SCH (08:24)
--- NOTE | 2018-12-04 12:39 | PRG ---
DATE OF SERVICE: 12/04/2018 SUBJECTIVE: The patient was seen this morning, sitting up in bed with no signs of acute distress. was at bedside. The patient reported she was feeling well today and had no complaints. We did discuss possible discharge to a residential facility or rehab. The patient stated she was not interested in that, however, did agree to home physical therapy for the first time. The patient's at bedside stated he did not think that this was worthwhile and stated it was a rip-off. However, the patient was insisted that she is very interested in receiving home physical therapy. OBJECTIVE: VITAL SIGNS: Temperature 98.1, pulse 61, respirations 16, oxygen saturation 97% on room air, blood pressure 110/59. GENERAL: A frail elderly female, sitting up in bed with no signs of acute distress. PULMONARY: Equal chest rise and fall. Clear breath sounds bilaterally. No signs of acute respiratory distress. CARDIAC: Regular rate and rhythm. No murmurs, gallops, or rubs. GI: Abdomen is soft, nontender, nondistended. EXTREMITIES: 2+ pulses in all extremities. No significant swelling noted. Gross motor and sensation are intact. NEUROLOGIC: GCS is 14 to 15, which is her baseline. LABORATORY FINDINGS: Sodium 132, potassium 3.1, chloride 96, carbon dioxide 28, BUN 7, creatinine 0.68, glucose 112, phosphorus 2.9, magnesium 2.0. DIAGNOSTIC FINDINGS: There are no new diagnostic findings to report. ASSESSMENT: 1. Status post mechanical fall, on Eliquis. 2. Right femoral neck fracture. 3. History of hypothyroidism, seizures, coronary artery disease, hyperlipidemia, anxiety, depression, atrial fibrillation, alcohol use, psychogenic polydipsia, acute hypokalemia and hypophosphatemia. PLAN: We will continue to provide supportive care as well as physical and occupational therapy. Continue current diet and free water restriction. Continue current p.o. pain medications. Replace phosphorus and potassium today orally. The patient is to get up out of bed and sit in the chair more today. We will talk to Case Management about possibly discharging the patient with home physical therapy. Job ID: [id number]
[2018-12-04] MEDS: Temazepam 15 MG CAP PO SCH (20:09)
[2018-12-04] MEDS: Simvastatin 40 MG TAB PO SCH (20:10)
--- NOTE | 2018-12-05 00:30 | PRG ---
DATE OF SERVICE: 12/04/2018 SUBJECTIVE: The patient remains on the surgical floor. The patient is currently sleeping. Nursing staff reports that the patient went outside 3 times today to go smoke. States that her family took pusher and the wheelchair. The patient is able to use a walker to get to the bathroom. The patient continues to work with Physical Therapy. OBJECTIVE: VITAL SIGNS: Stable, the patient remains afebrile. RESPIRATORY: Equal chest rise and fall, no respiratory distress. ASSESSMENT: 1. Status post mechanical fall, on Eliquis. 2. Right femoral neck fracture, status post right hip hemiarthroplasty, postop day #5. 3. History of hypothyroidism, seizures, coronary artery disease, hyperlipidemia, anxiety, depression, atrial fibrillation, alcohol use, psychogenic polydipsia, acute hypokalemia, and hypophosphatemia. PLAN: Continue supportive care and physical and occupational therapy. Continue current diet and free water restriction. Continue to monitor electrolytes and replace as needed. We will talk with Case Management about possibly discharging the patient home with home physical therapy as this has been the patient's request. Job ID: [id number]
[2018-12-05] MEDS: Acetaminophen 500 MG TAB PO SCH ×3 (01:23→12:01)
[2018-12-05 05:12] LABS: Anion Gap 10 mmol/L (10-20); BUN (Urea Nitrogen) 8 mg/dL (9.8-20.1); Calc. Creatinine Clearance 54 mL/min (70-130); Calcium 8.8 mg/dL (7.8-10.44); Carbon Dioxide 31 mmol/L (23-31); Chloride 96 mmol/L (98-107); Estimated GFR-MDRD Greater than 90; Glucose 84 mg/dL (83-110); Magnesium 1.7 mg/dL (1.6-2.6); Phosphorus 3.2 mg/dL (2.3-4.7); Potassium 3.9 mmol/L (3.5-5.1); Sodium 133 mmol/L (136-145)
[2018-12-05] MEDS: Ibuprofen 200 MG TAB PO SCH ×2 (06:02→15:25)
[2018-12-05] MEDS: Levothyroxine Sodium 125 MCG TAB PO SCH (06:03)
[2018-12-05] MEDS ORDERED: Magnesium 2 GM/50 ML 2 GM in Premix Bag 1 BAG IVPB SCH (08:00)
[2018-12-05] MEDS ORDERED: PHOS-NAK 1 PKT PACK PO SCH (08:00)
[2018-12-05] MEDS: Carvedilol 3.125 MG TAB PO SCH (08:48)
[2018-12-05] MEDS: levETIRAcetam 500 MG TAB PO SCH (08:50)
[2018-12-05] MEDS: ALPRAZolam 1 MG TAB PO SCH ×2 (08:51→15:26)
[2018-12-05] MEDS: Folic Acid 1 MG TAB PO SCH (08:51)
[2018-12-05] MEDS: Thiamine 100 MG TAB PO SCH (08:52)
[2018-12-05] MEDS: Aspirin 81 mg Enteric Coated Tablet PO SCH (08:52)
[2018-12-05] MEDS: Citalopram 20 MG TAB PO SCH ×2 (08:52→15:26)
--- NOTE | 2018-12-05 11:23 | PRG ---
DATE OF SERVICE: 12/05/2018 SUBJECTIVE: Ms. Sorensen is a 73-year-old woman, BMI 14.3, severely malnourished patient, who is postoperative day #6, status post right hip hemiarthroplasty. The patient is awake and alert today. Reports adequate pain control. She desires to go home. She is tolerating diet better. She is completely edentulous. Dentures are missing, so she is only able to take liquids. OBJECTIVE: VITAL SIGNS: Stable with blood pressure 113/75, pulse 80, respiratory rate is 12, temperature 98.4 degrees Fahrenheit, oxygen saturation is 97%. HEART: Regular rate and rhythm. LUNGS: Clear to auscultation bilaterally. Breathing, regular and nonlabored. NEUROLOGIC: No focal deficits present. LABORATORY DATA: Metabolic profile; sodium 133, potassium 3.9, chloride is 96, bicarb 31, BUN 8, creatinine 0.55, glucose is 84, magnesium 1.7, phosphorus 3.2. ASSESSMENT AND PLAN: The patient is hemodynamically stable. The chronic hyponatremia is improved and remained stable. The patient is unwilling to go to inpatient rehabilitation or detention facility. She is adamant about going home. From surgical standpoint, there is no further acute indication for ongoing hospitalization. She may be discharged home today and to follow up with Orthopedic Surgery in outpatient clinic. Further workup and evaluation of the patient to ascertain adequate nutritional intake could be carried out as outpatient basis. Job ID: [id number]
[2018-12-05 15:25] VITALS: BP 135/88; TEMP 97.6
--- NOTE | 2018-12-05 16:04 | DIS ---
DATE OF ADMISSION: 11/27/2018 DATE OF DISCHARGE: 12/05/2018 ADMISSION DIAGNOSIS: Mechanical fall and right femoral neck fracture. DISCHARGE DIAGNOSES: Mechanical fall and right femoral neck fracture in addition to seizures. CONSULTING PHYSICIANS: Dr. Freitas of Orthopedic Surgery and Dr. Riggs of Neurology. PROCEDURES: The patient went to the OR with Dr. Freitas on November 29, 2018 and had a right hip hemiarthroplasty. HOSPITAL COURSE: The patient is a 73-year-old female, who presented to the emergency department from home after a mechanical fall, on Eliquis. She was found to have a right femoral neck fracture and went to the OR on November 29, [address] Freitas for a right hip hemiarthroplasty postop. She waited 2 days ago to the OR because she was on Eliquis. Upon admission, the patient had a tonoclonic seizure for which she received benzodiazepines. Dr. Riggs of Neurology was consulted, who recommended changing her seizure medications to Keppra 750 daily. She had no other seizures during her hospital stay. The patient also had several behavioral issues before and after surgery, which included delirium. This was treated with Seroquel at night for sleep. The patient's behavioral issues resolved couple of days after surgery. At the time of discharge, the patient was tolerating a soft diet, ambulating with physical therapy and a walker. Her pain is well controlled. She was voiding without issues and she had bowel movements. It was recommended that the patient be discharged to acute rehab or residential facility; however, the patient and herself were adamant that they wanted to go home. They did, however, eventually agree to having home physical therapy and those services were set up. DISCHARGE DISPOSITION: Home with home physical therapy. DISCHARGE CONDITION: Satisfactory. PHYSICAL EXAMINATION: VITAL SIGNS: Temperature 97.6, pulse 86, respirations 16, oxygen saturation 100% on room air, blood pressure 135/88. GENERAL: A frail, elderly female, lying in bed with no signs of acute distress. PULMONARY: Equal chest rise and fall, clear breath sounds bilaterally. No signs of acute respiratory distress. CARDIAC: Regular rate and rhythm. No murmurs, gallops, or rubs. GASTROINTESTINAL: Soft, nontender, nondistended. EXTREMITIES: 2+ pulses in all extremities. No significant swelling noted. Gross motor and sensation are intact. NEURO: GCS is 14 to 15, which is her baseline. No other focal neurological deficits. DISCHARGE INSTRUCTIONS: The patient was discharged home with home physical therapy. Activity as tolerated and weightbearing as tolerated in all extremities. She is to have a regular diet with Ensure b.i.d. She is to use incentive spirometer and a walker. DISCHARGE MEDICATIONS: Include, 1. Tylenol. 2. Alprazolam. 3. Carvedilol. 4. Citalopram. 5. Folic acid. 6. Ibuprofen. 7. Keppra 750 mg b.i.d. 8. Levothyroxine. 9. Simvastatin. 10. Restoril. 11. Eliquis. 12. Bupropion. 13. Hydroxyzine. 14. Bactroban 2% ointment. FOLLOWUP APPOINTMENTS: The patient is to follow up with her PCP within 1 to 2 weeks. Follow up with Dr. George in 2 weeks for seizure medication management and follow up with Dr. Freitas of Orthopedic Surgery. No need to follow up with Trauma Surgery. This is merely a summary of the patient's hospitalization. For full details, please see her medical record in its entirety. Job ID: [id number]
== END 2018-12-05 16:58 | disposition home or self-care (01) | DRG 469 ==
LOC: ERS 15:19 → SURG A 19:39 → 2NO 21:21 → SURG A 11-29 15:42
PROVIDERS: ADMIT Surgery; ATTEND Surgery
PROC: 0SRR0JZ Replacement of Right Hip Joint, Femoral Surface with Synthetic Substitute, Open Approach (ICD-10-PCS; principal; 2018-11-29)
PROC: 0T9B70Z Drainage of Bladder with Drainage Device, Via Natural or Artificial Opening (ICD-10-PCS; 2018-12-01)
DX: S72.001A Fracture of unspecified part of neck of right femur, initial encounter for closed fracture (principal); E43 Unspecified severe protein-calorie malnutrition; E87.1 Hypo-osmolality and hyponatremia; Z68.1 Body mass index [BMI] 19.9 or less, adult; W18.30XA Fall on same level, unspecified, initial encounter; E03.9 Hypothyroidism, unspecified; G40.909 Epilepsy, unspecified, not intractable, without status epilepticus; I25.10 Atherosclerotic heart disease of native coronary artery without angina pectoris; E78.5 Hyperlipidemia, unspecified; E86.1 Hypovolemia; R33.9 Retention of urine, unspecified; R41.0 Disorientation, unspecified; Z78.1 Physical restraint status; F41.9 Anxiety disorder, unspecified; F32.9 Major depressive disorder, single episode, unspecified; R63.1 Polydipsia; I48.91 Unspecified atrial fibrillation; E83.39 Other disorders of phosphorus metabolism; E87.6 Hypokalemia; Z88.2 Allergy status to sulfonamides; Z90.49 Acquired absence of other specified parts of digestive tract; Z95.0 Presence of cardiac pacemaker; Z79.899 Other long term (current) drug therapy; Z79.01 Long term (current) use of anticoagulants; Z72.89 Other problems related to lifestyle; Z87.891 Personal history of nicotine dependence
CPT/HCPCS: 36415; 36416; 51701; 70450; 71045; 72125; 72170; 80048; 80053; 80177; 80185; 80306; 80307; 81003; 82533; 83735; 84100; 84134; 84146; 84439; 84443; 84484; 85025; 85610; 85730; 93005; 93010; 96365; 96367; 96375; A4353; J0690; J1160; J1200; J1630; J2001; J2060; J2270; J2370; J2405; J2704; J3010; J3370; J3475; J3480; J3490; J7050

== ENCOUNTER 2019-01-29 00:53 | Inpatient (IN) | payer MEDICARE ==
[2019-01-29] MEDS ORDERED: Ondansetron PF 4 MG/2 ML Vial IVP PRN (01:00)
[2019-01-29] MEDS ORDERED: Ondansetron ODT 4 MG TAB SL PRN (01:00)
[2019-01-29] MEDS ORDERED: Acetaminophen 325 MG TAB PO PRN (01:00)
[2019-01-29] MEDS ORDERED: D5 LR w/20 mEq KCL 1,000 ML IV SCH (01:00)
[2019-01-29] MEDS ORDERED: Lorazepam 2 MG/ML VIAL ONE (01:09)
[2019-01-29 01:41] LABS: #Lymphocytes 0.7 thou/uL (1.20-3.40); #Neutrophils 14.9 thou/uL (1.40-6.50); %Basophils 0.1 % (0.0-1.0); %Eosinophils 0.1 % (0.0-10.0); %Lymphocytes 3.9 % (21.0-51.0); %Monocytes 5.8 % (0.0-10.0); Hemoglobin 16.3 g/dL (12.0-16.0); Mean Corpuscular Hemoglobin 30.9 pg (27.0-31.0); Mean Corpuscular Volume 88.2 fL (78.0-98.0); Mean Platelet Volume 7.3 fL (7.4-10.4); Platelet Count 249 thou/uL (130-400); RBC Distribution Width 11.1 % (11.5-14.5); Red Blood Cell (RBC) Count 5.29 mill/uL (4.20-5.40); White Blood Cell (WBC) Count 16.5 thou/uL (4.8-10.8)
[2019-01-29 02:01] LABS: Bacteria/HPF None Seen HPF (None Seen); Bilirubin Negative (Negative); Blood, Urine Negative (Negative); Clarity Clear (Clear); Glucose, Urine (Dipstick) 500 mg/dL (Negative); Leukocyte Negative Leu/uL (Negative); Nitrite Negative (Negative); Protein, Urine (Dipstick) 200 mg/dL (Neg-Trace); RBC/HPF 0-3 HPF (0-3); Squamous Epithelial 0-3 HPF (0-3); Urobilinogen Normal mg/dL (Less than 2); WBC/HPF 0-3 HPF (0-3)
[2019-01-29 02:13] LABS: Amphetamine Not Detected (NotDetected); Benzodiazepine Screen Detected (NotDetected); Cocaine Metabolite Screen Not Detected (NotDetected); Medtox Reader # READER 4; Methadone Not Detected (NotDetected); Methamphetamine Not Detected (NotDetected); Opiate Screen Not Detected (NotDetected); Phencyclidine (PCP) Not Detected (NotDetected); THC/Cannabinoid Screen Not Detected (NotDetected); Tricyclic Screen Not Detected (NotDetected)
[2019-01-29 02:14] LABS: Barbiturates Screen Detected (NotDetected); Medtox Control Line Valid? VALID (VALID); Oxycodone Screen Not Detected (NotDetected)
[2019-01-29 02:52] LABS: Albumin 5.2 g/dL (3.4-4.8); CKMB 2.6 ng/mL (0-6.6)
[2019-01-29 02:53] LABS: Calcium 9.5 mg/dL (7.8-10.44); Chloride 81 mmol/L (98-107); Sodium 129 mmol/L (136-145)
[2019-01-29 02:54] LABS: Globulin 2.8 g/dL (2.4-3.5); Glucose 229 mg/dL (83-110)
[2019-01-29 02:55] LABS: Anion Gap 24 mmol/L (10-20); Carbon Dioxide 27 mmol/L (23-31)
[2019-01-29 02:56] LABS: Bilirubin, Total 0.4 mg/dL (0.2-1.2)
[2019-01-29 02:57] LABS: Alkaline Phosphatase 135 U/L (40-110); Calc. Creatinine Clearance 0 mL/min (70-130); Estimated GFR-MDRD 73
[2019-01-29 02:58] LABS: BUN (Urea Nitrogen) 11 mg/dL (9.8-20.1)
[2019-01-29 02:59] LABS: AST (SGOT) 37 U/L (5-34); Potassium 2.6 mmol/L (3.5-5.1)
[2019-01-29 03:00] LABS: ALT (SGPT) 40 U/L (8-55)
[2019-01-29] MEDS ORDERED: Aspirin 300 MG Suppository ONE (03:35)
[2019-01-29] MEDS ORDERED: Potassium Chloride 40 MEQ in Sodium Chloride 0.9% 500 ML IVPB SCH (04:00)
[2019-01-29 05:39] LABS: Actual Bicarbonate (HCO3v) 29 mEq/L (22-28); Analyzer IN Cardio ER; Base Excess 4.6 mEq/L (-2.0 to +3.0); Calcium, Ionized 0.95 mmol/L (1.16-1.32); Chloride (ABG LAB) 84 mmol/L (98-106); Hemoglobin (Hb) 15.7 g/dL (11.7-16.1); Sodium 125.7 mmol/L (133-146); pH (venous) 7.46 (7.32-7.43)
[2019-01-29 05:53] LABS: Troponin I 0.214 ng/mL (< 0.028)
--- NOTE | 2019-01-29 07:30 | CT ---
PRELIMINARY REPORT/[facility]/EMERGENCY AFTER HOURS PROCEDURE PROCEDURE INFORMATION: Exam: CT Head Without Contrast Exam date and time: 01/29/2019 1:57 AM Clinical history: 73 years old, female; Patient HX: of PT reported to EMS that PT had a seizure; PT has HX of seizure TECHNIQUE: Imaging protocol: Computed tomography of the head without contrast. COMPARISON: No relevant prior studies available. FINDINGS: Brain: No acute intracranial hemorrhage or mass effect. There is decreased attenuation in the periventricular white matter, likely from microvascular disease . No definite acute infarct by CT. MRI could be more sensitive/specific for detection, as clinically directed. Ventricles: Ventricle size is normal for age. Bones/joints: No definite acute skull fracture. Sinuses: Included paranasal sinuses are essentially clear. Mastoid air cells: No significant acute finding. IMPRESSION: 1. No acute intracranial hemorrhage or mass effect. 2. Changes of microvascular disease. 3. No definite acute infarct by CT, see above. 4. Other findings discussed above. Thank you for allowing us to participate in the care of your patient. Dictated and Authenticated by: Dimas Bello MD 01/29/2019 2:12 AM Central Time ([place] & [place]) FINAL REPORT BY DR. FARLEY EMERGENCY AFTER HOURS STUDY CT BRAIN NONCONTRAST: DATE: 01/29/2019 1:58 AM HISTORY: 73-year-old female status post seizure FINDINGS: There is no evidence of acute intra-axial or extra-axial hemorrhage. There is no midline shift or any other mass effect. There is no extra-axial fluid collection. There is no evidence of obstructive hydrocephalus. Calvarium is intact. There is diffuse brain parenchymal volume loss. There are low att enuation areas in the white matter. These are nonspecific, but in a patient of this age, they are probably chronic ischemic white matter changes due to microvascular atherosclerosis. Agree with preli minary report by [facility]. IMPRESSION: 1) No acute intracranial findings. 2) involutional changes and chronic ischemic white matter changes. Transcribed Date/Time: 01/29/2019 7:56 AM
--- NOTE | 2019-01-29 07:54 | RAD ---
RADIOGRAPH CHEST 1 VIEW: DATE: 01/29/2019 5:05 AM HISTORY: 73-year-old female with postoperative tachycardia. FINDINGS: There are no consolidations, pneumothorax, or cardiomegaly. The lateral costophrenic angles are sharp . Multilead left subclavian AICD. Diffusely prominent interstitial markings, new since 11/30/2018 study. Prominent right hilar shadow. IMPRESSION: 1. Prominent interstitial markings, new since prior study. 2. Automatic implantable cardioverter-defibrillator.
[2019-01-29 09:26] LABS: Anion Gap 18 mmol/L (10-20); BUN (Urea Nitrogen) 10 mg/dL (9.8-20.1); Calc. Creatinine Clearance 0 mL/min (70-130); Calcium 8.7 mg/dL (7.8-10.44); Carbon Dioxide 31 mmol/L (23-31); Chloride 87 mmol/L (98-107); Estimated GFR-MDRD Greater than 90; Glucose 146 mg/dL (83-110); Potassium 3.6 mmol/L (3.5-5.1); Sodium 132 mmol/L (136-145)
[2019-01-29 09:38] LABS: Troponin I 0.332 ng/mL (< 0.028)
--- NOTE | 2019-01-29 10:04 | PRG ---
DATE OF SERVICE: 01/29/2019 Ms. Sorensen came into the emergency room last night after apparently having a witnessed generalized tonic-clonic seizure lasting somewhere between 1 and 5 minutes. She remained in a confused state and was subsequently admitted. She was given fosphenytoin 1000 mg in the emergency room. She had a repeat CT scan of the head done which was unremarkable other than microvascular disease. EKG showed a sinus tachycardia. Lab work showed hypokalemia. She was given some potassium in the emergency room as well. She is admitted. She has failed to become responsive again. She has remained in a somewhat awake, but agitated appearing state. No other seizures have been witnessed by the nurses. Her drug levels are not available. Her lab work was otherwise negative. I would go ahead and get a Dilantin and Keppra level. This may just be an agitated postictal state that will clear with time. I do not see any other cause for her current level of consciousness. I will follow in her care. Job ID: [id number]
[2019-01-29] MEDS ORDERED: Sodium Chloride 0.9% (PF) 10 ML VIAL FS PRN (10:49)
[2019-01-29] MEDS ORDERED: Thiamine HCl 200 MG/2 ML VIAL IM SCH (11:00)
[2019-01-29] MEDS ORDERED: Lorazepam 2 MG/ML VIAL SLOW IVP SCH ×2 (11:00→23:30)
[2019-01-29] MEDS ORDERED: Multivitamins, Adult 10 ML in Dextrose 5 % And 0.9 % NaCl 1,000 ML IV SCH (12:00)
[2019-01-29] MEDS: Dextrose 5 % And 0.9 % NaCl 1,000 ML IV SCH ×2 (13:24→21:03)
--- NOTE | 2019-01-29 14:48 | CON ---
DATE OF CONSULTATION: 01/29/2019 REASON FOR CONSULTATION: Elevated troponin. PRIMARY M[employer] PROJECT MANAGER: Veto Rubalcava MD. HISTORY OF PRESENT ILLNESS: Ms. Sorensen is a very pleasant 73-year-old white female, who comes to the hospital for a witnessed tonic colonic seizure. She is being treated by Neurology and Primary Care Team for this. During this admission, troponins have been drawn and they have been rising at 0.08 and then 0.21 and now 0.33, so Cardiology has been consulted for this. Ms. Sorensen has had a history of nonischemic cardiomyopathy several years ago. She had a reduced EF at 20% to 25% with normal heart catheterization. She had an AICD placed. Eventually, her EF has improved. In 2018, she had several shocks from from a lead that had to be revised. As far as I can tell, she has not followed up with EP for her device. She is currently confused and unable to answer any questions. PAST MEDICAL HISTORY: 1. History of nonischemic cardiomyopathy, normal EF on last evaluation in December 2014. 2. Single-chamber ICD implanted in 2010, RV lead revision in June 2018. 3. Anorexia. 4. Depression. 5. COPD. 6. Type 2 diabetes. 7. Hypothyroidism. OUTPATIENT MEDICATIONS: 1. Keppra 750 mg b.i.d. 2. Hydroxyzine. 3. Temazepam. 4. Simvastatin 40 mg at bedtime. 5. Bactroban. 6. Synthroid 125 mcg a day. 7. Ibuprofen. 8. Folic acid. 9. Citalopram. 10. Carvedilol 3.125 b.i.d. 11. Bupropion p.r.n. 12. Eliquis 5 mg b.i.d. 13. Tylenol Extra Strength. 14. Alprazolam t.i.d. ALLERGIES: SULFA DRUGS. SOCIAL HISTORY: Remote history of alcohol. No tobacco. No drug use. FAMILY HISTORY: Noncontributory. REVIEW OF SYSTEMS: Unobtainable as the patient is confused. PHYSICAL EXAMINATION: VITAL SIGNS: Temperature 98.5, pulse 99, respiratory rate 20, saturating 92% on room air, blood pressure 117/75. GENERAL: Awake, but unresponsive. She is pulling her tongue now. She is moving her head back and forth, and she has her go back to same position. HEENT: Normocephalic. LUNGS: Clear. CARDIOVASCULAR: S1 and S2. No S3 or S4. No murmurs. ABDOMEN: Soft. Positive bowel sounds. EXTREMITIES: No edema. SKIN: Warm and dry. LABORATORY DATA: Laboratory work was reviewed. Sodium 132, potassium 3.6, chloride of 87, carbon dioxide of 31, anion gap of 18, BUN of 10, creatinine 0.6, GFR greater than 90. Glucose 146. Troponin went from 0.08 to 0.21 to 0.33 with a normal CK-MB. Albumin of 5.2. Normal TSH. UA was unremarkable. Toxicology positive for benzodiazepines, barbiturates, which is expected. Her Keppra level was 2.8. Her phenytoin level is 30.8, which is high. IMAGING STUDIES: EKG was reviewed. ASSESSMENT AND PLAN: 1. Type 2 non-ST elevation myocardial infarction, demand ischemia. 2. Seizure disorder, followed by Neurology. 3. History of nonischemic cardiomyopathy. 4. History of a single-chamber automatic implantable cardioverter-defibrillator in place. PLAN: 1. We will interrogate AICD to make sure she did not get any shocks delivered. 2. We will get an echocardiogram. 3. Otherwise, seizure care per Neurology and Primary Team. 4. Dr. Rubalcava, her primary farmworker chicken farm will follow up in the morning. Job ID: [id number]
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
[2019-01-29] MEDS: Lorazepam 2 MG/ML VIAL SLOW IVP PRN ×2 (21:05→23:27)
[2019-01-30] MEDS: Dextrose 5 % And 0.9 % NaCl 1,000 ML IV SCH (00:17)
[2019-01-30] MEDS ORDERED: cefTRIAXone\\ROCEPHIN 1 GM in Sodium Chloride 0.9% 100 ML IVPB SCH (03:00)
[2019-01-30 03:14] LABS: Anion Gap 14 mmol/L (10-20); BUN (Urea Nitrogen) 12 mg/dL (9.8-20.1); Calc. Creatinine Clearance 37 mL/min (70-130); Calcium 7.9 mg/dL (7.8-10.44); Carbon Dioxide 28 mmol/L (23-31); Cardiac Risk 2.3 (Less than 4.5); Chloride 100 mmol/L (98-107); Cholesterol 187 mg/dl (< 200 Desired); Estimated GFR-MDRD 78; Glucose 176 mg/dL (83-110); HDL Cholesterol 81 mg/dL (>60 Neg Risk); LDL Cholesterol, Calculated 93 mg/dL; Potassium 3.6 mmol/L (3.5-5.1); Sodium 138 mmol/L (136-145); Triglycerides 65 mg/dL (Less than 150)
[2019-01-30 05:37] LABS: Band 3 % (5-11); Hemoglobin 13.6 g/dL (12.0-16.0); Lymphocytes 5 % (21-51); MDiff Complete? YES; Mean Corpuscular Hemoglobin 30.1 pg (27.0-31.0); Mean Corpuscular Volume 91.3 fL (78.0-98.0); Monocytes 5 % (0-10); Neutrophil 87 % (42-75); Platelet Count 211 thou/uL (130-400); White Blood Cell (WBC) Count 20.8 thou/uL (4.8-10.8)
[2019-01-30] MEDS ORDERED: Propofol 1,000 MG/100 ML VIAL IV ONE (07:49)
--- NOTE | 2019-01-30 07:56 | RAD ---
Portable chest: 01/30/2019 COMPARISON: 01/29/2019 HISTORY: Hypoxia FINDINGS: Stable transvenous AICD. Supine imaging limits assessment for pneumothorax and pleural flui d. Worsening aeration noted within the medial left base which may signify infiltrate or volume loss. There is new hazy increased density throughout the right hemithorax, most prominent in the righ t perihilar region and right lung base with increased linear interstitial density. IMPRESSION: Worsening aeration throughout the right lung and involving the left base. Findings may si gnify pulmonary edema. Infectious pneumonitis or aspiration is a possibility. Recommend PA and lateral imaging of the chest for further assessment.
[2019-01-30] MEDS ORDERED: fentaNYL Citrate/PF 2,000 MCG in Sodium Chloride 0.9% 60 ML IV SCH (08:14)
[2019-01-30] MEDS ORDERED: DISCONTINUE PREVIOUS NARCOTIC PAIN MEDICATIONS AND BENZODIAZEPINES FS SCH (08:14)
[2019-01-30] MEDS ORDERED: Propofol BOLUS 1,000 MG/100 ML VIAL IV PRN (08:14)
[2019-01-30] MEDS ORDERED: Fentanyl BOLUS 250 ML IVPB PRN (08:14)
[2019-01-30] MEDS ORDERED: Propofol 1,000 MG/100 ML VIAL IV PRN (08:14)
[2019-01-30 08:45] LABS: Actual Bicarbonate (HCO3a) 24.7 mEq/L (22-28); Base Excess (BEa) -1.2 mEq/L (-2.0 to +3.0); CO2 Tension 45.8 mmHg (35.0-45.0); Calcium, Ionized 1.08 mmol/L (1.12-1.30); Hemoglobin (Hb) 13.4 g/dL (12.0-16.0); O2 Tension (PaO2) 83.5 mmHg (> 70.0); Potassium - ABG Lab 3.19 mmol/L (3.70-5.30); pH, Arterial 7.35 (7.35-7.45)
[2019-01-30 08:48] LABS: Puncture Site RRA
[2019-01-30] MEDS ORDERED: Thiamine HCl 200 MG/2 ML VIAL IM SCH (09:00)
[2019-01-30] MEDS ORDERED: Succinylcholine Chloride 200 MG/10 ML VIAL ONE (09:00)
[2019-01-30] MEDS ORDERED: FLU VACC TS2019-20(65YR UP)/PF 180 MCG/0.5 ML SYRINGE IM ONE (09:00)
[2019-01-30] MEDS ORDERED: Pantoprazole 40 MG VIAL IVP SCH ×2 (09:00)
[2019-01-30] MEDS ORDERED: Enoxaparin Sodium 40 MG/0.4 ML SYRINGE SC SCH (09:00)
[2019-01-30] MEDS: SODIUM CHLORIDE IV SCH (09:05)
[2019-01-30] MEDS: POTASSIUM CHLORIDE IV SCH (09:05)
[2019-01-30] MEDS: MULTIVITAMINS IV SCH (09:05)
[2019-01-30] MEDS ORDERED: Enoxaparin Sodium 30 MG/0.3 ML SYRINGE SC SCH (11:00)
[2019-01-30] MEDS: Famotidine/PF 20 mg/2ml Vial SLOW IVP SCH (11:02)
[2019-01-30] MEDS: Thiamine HCl 200 MG/2 ML VIAL IVPB SCH ×2 (11:18→13:21)
--- NOTE | 2019-01-30 11:43 | CON ---
DATE OF CONSULTATION: HISTORY OF PRESENT ILLNESS: Padmini Sorensen is a 73-year-old female who was admitted yesterday evening. He was apparently on a monitored bed, when apparently this morning was found to have agonal respiration , was intubated ,/ history of seizure activity. She was intubated by the ER physician, transferred to the ICU. X-ray shows rather extensive right-sided infiltrate. Obviously, unable to get any history from the patient. She has known history of seizure activity in the past, who has also been intubated for postictal issues. PAST MEDICAL HISTORY: 1. Coronary artery disease, status post pacemaker. 2. Chronic seizure activity. 3. History of depression. PAST SURGICAL HISTORY: Cholecystectomy, pacemaker. SOCIAL HISTORY: Apparently, no history of tobacco abuse. History of some alcohol intake. HOME MEDICATIONS: Include 1. Xanax 2 mg three times a day. 2. Eliquis 5 twice a day. 3. Coreg 3.125. 4. Bupropion 300 a day. 5. Synthroid 125. 6. Folic acid 1 mg. 7. Celexa 60. 8. Keppra 750. 9. Temazepam 30. 10. Simvastatin 40. She now is on meropenem, Keppra, and Ativan. PHYSICAL EXAMINATION: VITAL SIGNS: Pulse 123, blood pressure 99/82, respiratory rate 34. GENERAL: She is agitated. CHEST: Decreased breath sounds. Bilateral rhonchi. CARDIAC: Sinus tach. ABDOMEN: Soft. LABORATORY DATA: White count 20,000. H and H 13 and 41, platelet count is normal. Lytes are normal. X-ray shows a right-sided infiltrate. Pacemaker in place, skin fold. CT brain shows evidence of no acute intracranial finding. IMPRESSION: Metabolic encephalopathy, seizure activity, respiratory failure, congestive heart failure, pacemaker, and possibly pneumonia. We will try and get information as family arrives. She is not weanable. Continue Keppra. Continue antibiotics and supportive care. We will follow. This is a 45-minute critical time. Job ID: [id number] MTDD
--- NOTE | 2019-01-30 11:51 | RAD ---
SINGLE VIEW CHEST: Date: 01/30/19 COMPARISON: 01/30/19 at 0211 hours. HISTORY: Respiratory failure. Line and tube placement. FINDINGS: Single view of the chest shows normal sized cardiomediastinal silhouette. There is hyperexpansion of the lungs consistent with COPD. Increased interstitial lung markings are present. There is an endotra cheal tube with its tip approximately 3.0 cm from the susy. A right IJ central venous catheter is s een with its tip in the superior vena cava. The pacemaker is unchanged in position. IMPRESSION: Appropriate position of endotracheal tube and central venous catheter. POS: TPC
--- NOTE | 2019-01-30 11:52 | RAD ---
PORTABLE CHEST: Date: 01/30/19 HISTORY: Line placement. FINDINGS: Comparison with prior examination done earlier today. Endotracheal and NG tubes are in satisfactory position. Right central line is unchanged in position. Internal defibrillator device is present. Parenchymal lung changes appear fairly similar to the prior exam. IMPRESSION: Stable exam. POS: TPC
[2019-01-30] MEDS: MEROPENEM 1 GM/50 ML 1 GM in Premix Bag 1 BAG IVPB SCH ×2 (13:22→21:25)
[2019-01-30 14:08] VITALS: BMI 13.0
[2019-01-30] MEDS ORDERED: Furosemide 40 MG/4 ML VIAL SLOW IVP SCH (16:30)
[2019-01-30] MEDS ORDERED: Amiodarone 150 MG, Admixture Fee 1 EACH in Dextrose 5% in Water 100 ML IVPB SCH (16:45)
[2019-01-30] MEDS: Amiodarone 450 MG, Admixture Fee 1 EACH in Dextrose 5% in Water 250 ML IVPB SCH (16:47)
[2019-01-30] MEDS: levETIRAcetam In NaCl (Iso-Os) 1,000 MG in Premix Bag 1 BAG IVPB SCH (21:25)
[2019-01-31] MEDS ORDERED: Acetaminophen 325 MG TAB PO PRN (04:05)
[2019-01-31] MEDS ORDERED: Furosemide 40 MG/4 ML VIAL SLOW IVP SCH (04:15)
[2019-01-31 05:21] LABS: #Lymphocytes 0.7 thou/uL (1.20-3.40); #Monocytes 0.9 thou/uL (0.11-0.59); #Neutrophils 9.2 thou/uL (1.40-6.50); %Basophils 0.2 % (0.0-1.0); %Eosinophils 0.1 % (0.0-10.0); %Lymphocytes 6.8 % (21.0-51.0); %Neutrophils 84.9 % (42.0-75.0); Hemoglobin 11.5 g/dL (12.0-16.0); Mean Corpuscular HGB CONC 32.9 g/dL (32.0-36.0); Mean Corpuscular Hemoglobin 29.8 pg (27.0-31.0); Mean Corpuscular Volume 90.5 fL (78.0-98.0); Mean Platelet Volume 8.4 fL (7.4-10.4); Platelet Count 122 thou/uL (130-400); RBC Distribution Width 11.1 % (11.5-14.5); Red Blood Cell (RBC) Count 3.85 mill/uL (4.20-5.40); White Blood Cell (WBC) Count 10.8 thou/uL (4.8-10.8)
[2019-01-31] MEDS ORDERED: MEROPENEM 1 GM/50 ML 1 GM in Premix Bag 1 BAG IVPB SCH (06:00)
[2019-01-31] MEDS ORDERED: Meropenem 1 GM in Sodium Chloride 0.9% 100 ML IVPB SCH (06:00)
[2019-01-31] MEDS: MEROPENEM 1 GM/50 ML 1 GM in Premix Bag 1 BAG IVPB SCH ×3 (06:00→23:09)
[2019-01-31 06:43] LABS: Anion Gap 14 mmol/L (10-20); BUN (Urea Nitrogen) 31 mg/dL (9.8-20.1); Calc. Creatinine Clearance 23 mL/min (70-130); Carbon Dioxide 27 mmol/L (23-31); Chloride 104 mmol/L (98-107); Estimated GFR-MDRD 44; Glucose 196 mg/dL (83-110); Potassium 3.5 mmol/L (3.5-5.1); Sodium 141 mmol/L (136-145)
[2019-01-31 07:22] LABS: Actual Bicarbonate (HCO3a) 27.3 mEq/L (22-28); Base Excess (BEa) 2.9 mEq/L (-2.0 to +3.0); CO2 Tension 41.1 mmHg (35.0-45.0); Calcium, Ionized 1.08 mmol/L (1.12-1.30); Carboxyhemoglobin (COHb) 1.1 gm% (0.0-3.0); Hemoglobin (Hb) 11.8 g/dL (12.0-16.0); Potassium - ABG Lab 3.34 mmol/L (3.70-5.30); pH, Arterial 7.44 (7.35-7.45)
[2019-01-31 07:26] LABS: O2 Tension (PaO2) 51.8 mmHg (> 70.0); Puncture Site RRA
[2019-01-31 07:27] LABS: ALV-art Gradient 110.725 (0-20)
[2019-01-31] MEDS: Lorazepam 2 MG/ML VIAL SLOW IVP PRN ×4 (07:45→21:23)
--- NOTE | 2019-01-31 08:01 | RAD ---
EXAM: CHEST ONE VIEW HISTORY: On ventilator COMPARISON: 01/30/2019. FINDINGS: A triple lead left subclavian AICD device remains in place. The endotracheal tube and right internal jugular vein central venous catheters remain unchanged in position. There has been interval placement of a nasogastric tube which courses into the upper abdomen, and the tip is not visualized. The cardiac silhouette is magnified by projection. There is mild increase in perihilar interstitial densities which may be slightly improved compared to the prior study. Pacing device overlying the low er left chest and upper abdomen is no longer seen. Vascular calcifications are seen in the thoracic aorta. No other interval change. IMPRESSION: 1. Lines and tubes in place as described above. 2. Increased perihilar interstitial densities which have slightly improved when compared to the prior study. Findings may be related to improvement in pulmonary edema or infectious process.
[2019-01-31 08:09] LABS: Actual Bicarbonate (HCO3a) 23.3 mEq/L (22-28); Base Excess (BEa) -0.8 mEq/L (-2.0 to +3.0); CO2 Tension 36.7 mmHg (35.0-45.0); Calcium, Ionized 1.08 mmol/L (1.12-1.30); Hemoglobin (Hb) 11.5 g/dL (12.0-16.0); O2 Tension (PaO2) 69.9 mmHg (> 70.0); Potassium - ABG Lab 3.19 mmol/L (3.70-5.30); pH, Arterial 7.42 (7.35-7.45)
[2019-01-31 08:10] LABS: ALV-art Gradient 98.125 (0-20); Puncture Site LRA
[2019-01-31] MEDS: MULTIVITAMINS IV SCH (08:10)
[2019-01-31] MEDS: POTASSIUM CHLORIDE IV SCH (08:10)
[2019-01-31] MEDS: SODIUM CHLORIDE IV SCH (08:10)
[2019-01-31] MEDS: Enoxaparin Sodium 30 MG/0.3 ML SYRINGE SC SCH (08:11)
[2019-01-31] MEDS: Famotidine/PF 20 mg/2ml Vial SLOW IVP SCH (08:12)
[2019-01-31] MEDS: levETIRAcetam In NaCl (Iso-Os) 1,000 MG in Premix Bag 1 BAG IVPB SCH ×2 (08:14→22:12)
[2019-01-31] MEDS: Thiamine HCl 200 MG/2 ML VIAL IVPB SCH (08:37)
[2019-01-31] MEDS: Digoxin 0.5 MG/2 ML AMP SLOW IVP SCH ×3 (09:36→15:12)
[2019-01-31] MEDS: Amiodarone 450 MG, Admixture Fee 1 EACH in Dextrose 5% in Water 250 ML IVPB SCH (16:32)
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
[2019-01-31] MEDS: Morphine 2 MG/ML SYRINGE SLOW IVP PRN (23:32)
[2019-02-01] MEDS: Lorazepam 2 MG/ML VIAL SLOW IVP PRN ×4 (01:46→20:27)
[2019-02-01] MEDS: Morphine 2 MG/ML SYRINGE SLOW IVP PRN (04:00)
[2019-02-01] MEDS: MEROPENEM 1 GM/50 ML 1 GM in Premix Bag 1 BAG IVPB SCH ×3 (06:28→22:17)
--- NOTE | 2019-02-01 07:56 | RAD ---
RADIOGRAPH CHEST 1 VIEW: DATE: 02/01/2019 TIME: 4:38 AM HISTORY: 73-year-old female in respiratory distress. COMPARISON: 01/31/2019 4:54 AM FINDINGS: Endotracheal tube and esophagogastric tube have been removed. Right IJ central line remains. Left sub clavian triple lead AICD. No cardiomegaly. Consolidation at medial aspect of left lower lobe appears slightly worse now. Mild blunting of bilateral lateral costophrenic angles unchanged. Diffuse haziness of right lung, especially right lower lobe, has become slightly worse. No pneumothorax. Left upper lobe is relatively clear. IMPRESSION: 1) status post extubation. 2) interval development of diffuse haziness of right lung especially lower lobe. 3) slight interval worsening of consolidation of left lower lobe. 4) no interval change in small bilateral pleural effusions.
[2019-02-01] MEDS: levETIRAcetam In NaCl (Iso-Os) 1,000 MG in Premix Bag 1 BAG IVPB SCH ×2 (08:22→20:26)
[2019-02-01] MEDS: Famotidine/PF 20 mg/2ml Vial SLOW IVP SCH (08:22)
[2019-02-01] MEDS: Enoxaparin Sodium 30 MG/0.3 ML SYRINGE SC SCH (08:23)
[2019-02-01] MEDS ORDERED: Digoxin 0.5 MG/2 ML AMP SLOW IVP SCH (09:00)
[2019-02-01] MEDS: SODIUM CHLORIDE IV SCH (10:18)
[2019-02-01] MEDS: MULTIVITAMINS IV SCH (10:18)
[2019-02-01] MEDS: POTASSIUM CHLORIDE IV SCH (10:18)
[2019-02-01] MEDS ORDERED: Amiodarone 200 MG TAB PO SCH (12:15)
--- NOTE | 2019-02-01 13:07 | PRG ---
DATE OF SERVICE: 02/01/2019 SUBJECTIVE: Padmini Sorensen is clinically unchanged. She is having no respiratory issues post extubation. OBJECTIVE: VITAL SIGNS: Blood pressure is 132/100, heart rate is 92, respiratory rates in the teens. She is afebrile. LUNGS: Clear. HEART: Regular rhythm. ABDOMEN: Soft. EXTREMITIES: Without edema. LABORATORY DATA: There is no new lab. ASSESSMENT AND PLAN: She is still on an amiodarone drip. This is being transitioned to p.o. by the forensic pathologist. She can be transferred to a telemetry bed in my opinion. Her seizure drug is needed to be transitioned to p.o. Her cultures are negative. She does have evidence of mucus plugging in the right lower lobe on her chest x-ray, but in my opinion, she is not a candidate for bronchoscopy given that she weighs 78 pounds. Continue nebulizer treatments with EzPAP, may be helpful with this. Her prognosis is dismal in my opinion. She will transfer to the telemetry unit when a bed becomes available. Job ID: [id number]
[2019-02-01] MEDS: Amiodarone 200 MG TAB PO SCH (20:25)
[2019-02-02] MEDS: Lorazepam 2 MG/ML VIAL SLOW IVP PRN ×4 (03:54→20:46)
[2019-02-02] MEDS: MEROPENEM 1 GM/50 ML 1 GM in Premix Bag 1 BAG IVPB SCH ×2 (05:53→12:59)
--- NOTE | 2019-02-02 07:49 | RAD ---
Chest AP view INDICATION: Intubation COMPARISON: February 01, 2019 FINDINGS: Lungs:Perihilar airspace disease remains. The more dense consolidation of the retrocardiac left lower lobe is stable. Cardiac silhouette:Mild cardiomegaly and AICD is unchanged. Pulmonary vasculature:There is less pulmonary vasculature engorgement. Mild congestion remains howeve r. Pleural spaces:Persistent small bilateral pleural effusions, left greater than right. Upper abdomen:No abnormality seen. Osseous structures: Stable nondisplaced posterior lateral left ninth rib fracture Additional findings:Right IJ central venous catheter has been removed. Left upper arm angiocatheter i s unchanged. IMPRESSION: Interval removal of the right IJ central venous catheter. Left upper extremity angiocathe ter is unchanged. Improving CHF. Persistent retrocardiac left lower lobe opacity may reflect residual pneumonia or atelectasis.
[2019-02-02] MEDS: Famotidine/PF 20 mg/2ml Vial SLOW IVP SCH (08:17)
[2019-02-02] MEDS: Enoxaparin Sodium 30 MG/0.3 ML SYRINGE SC SCH (08:17)
[2019-02-02] MEDS: Amiodarone 200 MG TAB PO SCH ×3 (08:17→21:36)
[2019-02-02] MEDS: levETIRAcetam In NaCl (Iso-Os) 1,000 MG in Premix Bag 1 BAG IVPB SCH ×2 (08:18→20:51)
[2019-02-02] MEDS: POTASSIUM CHLORIDE IV SCH (11:17)
[2019-02-02] MEDS: SODIUM CHLORIDE IV SCH (11:17)
[2019-02-02] MEDS: MULTIVITAMINS IV SCH (11:17)
--- NOTE | 2019-02-02 16:08 | PRG ---
DATE OF SERVICE: 02/02/2019 SUBJECTIVE: Ms. Sorensen' was here earlier. She has been very withdrawn with the nurses, but as soon as her left today, she started cussing at and about her . OBJECTIVE: GENERAL: She is in no distress. VITAL SIGNS: Remained stable. Her heart rate has been down as low as 93 earlier today. Respiratory rates in the teens. Blood pressure 103/74. Oximetry is in the 90s on room air. DIAGNOSTIC DATA: Chest x-ray done today shows no significant change. She has bibasilar effusions and atelectasis, likely secondary to her cardiomyopathy. Her ejection fraction is 20% to 25%. IMPRESSION: Status post admission and intubation for seizure. She has long history of seizures. Her continued alcohol intake provided by her makes the likelihood of future seizures high. She has had multiple admissions for this. I see no benefit at this time by keeping her in the hospital. I certainly do not see any reason to keep her on broad-spectrum IV antimicrobial therapy at this point. Given her stability, we will sign off. Job ID: [id number]
[2019-02-03] MEDS: Lorazepam 2 MG/ML VIAL SLOW IVP PRN (00:50)
[2019-02-03] MEDS: Meropenem 500 MG in Sodium Chloride 0.9% 100 ML IVPB SCH ×2 (02:11→13:23)
[2019-02-03] MEDS ORDERED: Amiodarone 200 MG TAB PO SCH ×2 (09:15→21:00)
[2019-02-03] MEDS: Enoxaparin Sodium 30 MG/0.3 ML SYRINGE SC SCH (09:46)
[2019-02-03] MEDS: Famotidine/PF 20 mg/2ml Vial SLOW IVP SCH (09:46)
[2019-02-03] MEDS: Amiodarone 200 MG TAB PO SCH ×3 (09:46→20:52)
[2019-02-03] MEDS: levETIRAcetam In NaCl (Iso-Os) 1,000 MG in Premix Bag 1 BAG IVPB SCH ×2 (09:55→20:43)
--- NOTE | 2019-02-03 11:24 | RAD ---
PORTABLE CHEST: Date: 02/03/19 HISTORY: Dyspnea. COMPARISON: Prior day's exam. FINDINGS: Heart size appears slightly enlarged with internal defibrillator device present. Bibasilar lung hirsch es are similar to the prior exam. IMPRESSION: Stable chest. POS: TPC
[2019-02-03] MEDS: POTASSIUM CHLORIDE IV SCH (12:44)
[2019-02-03] MEDS: SODIUM CHLORIDE IV SCH (12:44)
[2019-02-03] MEDS: MULTIVITAMINS IV SCH (12:44)
[2019-02-04] MEDS: Lorazepam 2 MG/ML VIAL SLOW IVP PRN ×3 (00:01→16:24)
[2019-02-04] MEDS: Morphine 2 MG/ML SYRINGE SLOW IVP PRN ×2 (01:29→16:23)
[2019-02-04] MEDS: Meropenem 500 MG in Sodium Chloride 0.9% 100 ML IVPB SCH ×2 (01:29→14:44)
[2019-02-04] MEDS: levETIRAcetam In NaCl (Iso-Os) 1,000 MG in Premix Bag 1 BAG IVPB SCH ×2 (09:06→20:09)
[2019-02-04] MEDS: MULTIVITAMINS IV SCH (09:44)
[2019-02-04] MEDS: SODIUM CHLORIDE IV SCH (09:44)
[2019-02-04] MEDS: POTASSIUM CHLORIDE IV SCH (09:44)
[2019-02-04] MEDS: Amiodarone 200 MG TAB PO SCH ×2 (09:45→20:53)
[2019-02-04] MEDS: Enoxaparin Sodium 30 MG/0.3 ML SYRINGE SC SCH (09:45)
[2019-02-04] MEDS: Famotidine/PF 20 mg/2ml Vial SLOW IVP SCH (09:45)
--- NOTE | 2019-02-04 12:20 | CON ---
DATE OF CONSULTATION: PRIMARY CARE PHYSICIAN: Renny Parish MD CHIEF COMPLAINT: Seizure. HISTORY OF PRESENT ILLNESS: The patient is a 73-year-old lady, who is admitted to the hospital following a seizure. Her was in the room. He reports that she takes her seizure medications on a daily basis. She had a hip fracture one month ago, at which time, her Keppra was increased to 750 mg b.i.d. She is seeing Dr. Parish, her primary doctor, who is managing her seizures. She tosses her head back and forth and hollers, which is her seizure description and this lasts a few minutes. She has been somewhat confused this week and she quit drinking four months ago and she used to drink three beers a day before that. PREVIOUS MEDICAL HISTORY: Significant for anxiety, depression, hypothyroidism, and history of hypercholesterolemia. PAST SURGICAL HISTORY: Positive for right hip fracture repair, gallbladder resection, , and pacemaker placement. SOCIAL HISTORY: She smokes e-cigarettes. He does not think there is nicotine in it and she also drinks three beers a day until four months ago, at which time she stopped it. She lives with her . FAMILY HISTORY: Her brother is 80 and sister is 73, both are relatively healthy. Her mother at 82 in her sleep. Her father at 97 years of age. ALLERGIES: THE PATIENT IS ALLERGIC TO SULFA. CURRENT MEDICATIONS: At home include; 1. Citalopram. 2. Levothyroxine. 3. Temazepam. 4. Wellbutrin. 5. Xanax. 6. Keppra. 7. Eliquis. 8. Zocor. 9. Carvedilol. 10. Hydroxyzine. REVIEW OF SYSTEMS: Difficult to obtain from the patient. She seemed somewhat confused. LABORATORY DATA: Lab workup; her white count is 10.8, hemoglobin 11.5, hematocrit 34.9, and platelet count 122. Chemistry; sodium 141, potassium 3.5, chloride 104, bicarb 27, BUN 31, creatinine 1.20, glucose 196, and calcium 8. BNP 4014. Lipid profile is within normal limits. Urine tox screen is showing barbiturates and benzodiazepine and her phenytoin level was 30.8. Repeat level was 19.1. Keppra level was 2.8, which is very close to the lower limit, which is at 2.0 and her imaging reports were reviewed and she did not have any recent MRI. Her brain CT scan was negative for any structural issues such as a bleed or scar tissue. However, there is decreased attenuation in the periventricular white matter, likely from microvascular disease. PHYSICAL EXAMINATION: VITAL SIGNS: Temperature is 98.2, pulse 73, respiratory rate 16, and O2 saturation 90, and blood pressure 126/78. GENERAL APPEARANCE: Very thin, frail lady, who is in her bed. knows by the bedside. CHEST: Clear vesicular breathing. CARDIOVASCULAR: S1 and S2 heard. No murmurs. ABDOMEN: Soft. NEUROLOGIC: Higher intellectual function, she is oriented to self only, but confused with date and place. Cranial nerves normal. Pupils 2 mm, reactive to light. Normal extraocular movements. Sensation of the face is normal. Normal aboslvb-nv-xdifxx rub bilaterally. Tongue midline. No facial asymmetry noted. Normal elevation of palate. Motor examination, bulk normal. Tone normal. Strength 5/5 in upper extremities and 4/5 in lower limbs. Muscle groups tested deltoid, biceps, triceps, wrist extension and flexion, finger extension and flexion, iliopsoas, hamstrings, quadriceps, ankle dorsiflexion, and plantar flexion. Deep tendon reflexes 1+ throughout and sensory, normal to touch bilaterally. Cerebellar, normal kacjsj-op-arrb and iput-en-zrhg. IMPRESSION AND PLAN: The patient is a 73-year-old lady, who has long history of alcohol and she was drinking three beers a day until four months ago at which time she stopped drinking beer. Her medical history is positive for anxiety, depression, and hypothyroidism. She has had four seizures so far per . Her CT of the head shows microvascular ischemic changes. This could be secondary to alcohol such as seen and there is no enlargement of her ventricles. At this time, we were unable to obtain an MRI scan because of her pacemaker. Her examination shows a frail elderly lady, who seems to be mildly confused, mostly oriented to self, has some difficulty following full instructions, but can perform a motor exam. Her clinical diagnosis is most consistent with likely postictal state versus possible mild dementia in the background, which needs to be further investigated. She might have a tendency to have seizures at this time. She is on Keppra and Depakote. Her Keppra has been increased to 1000 mg twice daily and her Dilantin is at 200 mg per day. At this time, I feel comfortable raising the Dilantin back to 300 mg per day and she needs to follow up with neurologist, Dr. Riggs. Please call me if you have any further questions. Job ID: [id number]
[2019-02-04] MEDS ORDERED: Ziprasidone 20 MG VIAL IM PRN ×2 (17:21→23:04)
[2019-02-04 17:45] LABS: #Eosinphils 0.2 thou/uL (0.0-0.7); #Lymphocytes 0.8 thou/uL (1.20-3.40); #Monocytes 0.9 thou/uL (0.11-0.59); #Neutrophils 6.2 thou/uL (1.40-6.50); %Basophils 0.2 % (0.0-1.0); %Eosinophils 2.8 % (0.0-10.0); %Monocytes 11.2 % (0.0-10.0); %Neutrophils 75.8 % (42.0-75.0); Mean Corpuscular HGB CONC 33.1 g/dL (32.0-36.0); Mean Corpuscular Hemoglobin 30.6 pg (27.0-31.0); Mean Corpuscular Volume 92.4 fL (78.0-98.0); RBC Distribution Width 11.6 % (11.5-14.5); Red Blood Cell (RBC) Count 3.91 mill/uL (4.20-5.40); White Blood Cell (WBC) Count 8.2 thou/uL (4.8-10.8)
[2019-02-04 17:59] LABS: MDiff Complete? YES; Mean Platelet Volume 8.7 fL (7.4-10.4); Ovalocytes SLIGHT = 2-5 cells (100X) (0-1/hpf); Platelet Count 95 thou/uL (130-400); Platelet Morphology Comment Appears Decreased; Polychromasia SLIGHT = 2-3 cells (100X) (0-2/hpf)
[2019-02-04 18:00] LABS: ALT (SGPT) 605 U/L (8-55); AST (SGOT) 141 U/L (5-34); Albumin 3.4 g/dL (3.4-4.8); Alkaline Phosphatase 85 U/L (40-110); Anion Gap 11 mmol/L (10-20); BUN (Urea Nitrogen) 15 mg/dL (9.8-20.1); Bilirubin, Total 0.5 mg/dL (0.2-1.2); Calc. Creatinine Clearance 43 mL/min (70-130); Calcium 8.2 mg/dL (7.8-10.44); Carbon Dioxide 37 mmol/L (23-31); Chloride 92 mmol/L (98-107); Estimated GFR-MDRD Greater than 90; Globulin 1.9 g/dL (2.4-3.5); Glucose 151 mg/dL (83-110); Magnesium 1.4 mg/dL (1.6-2.6); Protein, Total 5.3 g/dL (6.0-8.3); Sodium 137 mmol/L (136-145)
[2019-02-04 18:05] LABS: Potassium 2.7 mmol/L (3.5-5.1)
[2019-02-04] MEDS ORDERED: Potassium Chloride 20 MEQ TAB PO SCH ×2 (18:45→21:00)
[2019-02-04] MEDS: Bacitracin Zinc Ointment 30 gm TUBE TOP SCH (20:10)
[2019-02-04] MEDS ORDERED: Sterile Water 10 ML VIAL FS PRN (23:05)
[2019-02-05] MEDS: Meropenem 500 MG in Sodium Chloride 0.9% 100 ML IVPB SCH ×2 (01:06→14:13)
[2019-02-05] MEDS: Lorazepam 2 MG/ML VIAL SLOW IVP PRN ×4 (01:32→22:55)
[2019-02-05 07:21] LABS: BUN (Urea Nitrogen) 12 mg/dL (9.8-20.1); Calc. Creatinine Clearance 46 mL/min (70-130); Estimated GFR-MDRD Greater than 90; Glucose 98 mg/dL (83-110)
[2019-02-05 07:30] LABS: Anion Gap 11 mmol/L (10-20); Carbon Dioxide 38 mmol/L (23-31); Chloride 93 mmol/L (98-107); Sodium 139 mmol/L (136-145)
[2019-02-05 07:36] LABS: Potassium 2.8 mmol/L (3.5-5.1)
[2019-02-05] MEDS: levETIRAcetam In NaCl (Iso-Os) 1,000 MG in Premix Bag 1 BAG IVPB SCH ×2 (09:08→21:31)
[2019-02-05] MEDS: Amiodarone 200 MG TAB PO SCH ×2 (09:10→21:31)
[2019-02-05] MEDS: Enoxaparin Sodium 30 MG/0.3 ML SYRINGE SC SCH (09:11)
[2019-02-05] MEDS: Bacitracin Zinc Ointment 30 gm TUBE TOP SCH ×3 (09:11→21:31)
[2019-02-05] MEDS: Famotidine/PF 20 mg/2ml Vial SLOW IVP SCH (09:11)
[2019-02-05] MEDS: SODIUM CHLORIDE IV SCH (10:01)
[2019-02-05] MEDS: POTASSIUM CHLORIDE IV SCH (10:01)
[2019-02-05] MEDS: MULTIVITAMINS IV SCH (10:01)
[2019-02-05] MEDS ORDERED: Potassium Chloride 20 MEQ TAB PO SCH (10:30)
[2019-02-05] MEDS: Potassium Chloride 20 MEQ TAB PO SCH (17:12)
[2019-02-06] MEDS: Morphine 2 MG/ML SYRINGE SLOW IVP PRN ×2 (00:46→20:34)
[2019-02-06] MEDS: Meropenem 500 MG in Sodium Chloride 0.9% 100 ML IVPB SCH ×2 (01:17→14:21)
[2019-02-06] MEDS: Lorazepam 2 MG/ML VIAL SLOW IVP PRN ×5 (02:52→23:37)
[2019-02-06 06:57] LABS: #Eosinphils 0.3 thou/uL (0.0-0.7); #Lymphocytes 0.8 thou/uL (1.20-3.40); #Monocytes 0.9 thou/uL (0.11-0.59); #Neutrophils 6.5 thou/uL (1.40-6.50); %Basophils 0.5 % (0.0-1.0); %Lymphocytes 9.1 % (21.0-51.0); %Monocytes 10.5 % (0.0-10.0); Hemoglobin 13.1 g/dL (12.0-16.0); Mean Corpuscular HGB CONC 33.5 g/dL (32.0-36.0); Mean Corpuscular Hemoglobin 30.6 pg (27.0-31.0); Mean Corpuscular Volume 91.4 fL (78.0-98.0); Mean Platelet Volume 8.8 fL (7.4-10.4); Platelet Count 118 thou/uL (130-400); RBC Distribution Width 12.2 % (11.5-14.5); Red Blood Cell (RBC) Count 4.27 mill/uL (4.20-5.40); White Blood Cell (WBC) Count 8.4 thou/uL (4.8-10.8)
[2019-02-06 07:00] LABS: Anion Gap 14 mmol/L (10-20); BUN (Urea Nitrogen) 12 mg/dL (9.8-20.1); Calc. Creatinine Clearance 43 mL/min (70-130); Calcium 9.4 mg/dL (7.8-10.44); Carbon Dioxide 36 mmol/L (23-31); Chloride 90 mmol/L (98-107); Estimated GFR-MDRD Greater than 90; Glucose 134 mg/dL (83-110); Potassium 3.4 mmol/L (3.5-5.1); Sodium 137 mmol/L (136-145)
[2019-02-06] MEDS: Potassium Chloride 20 MEQ TAB PO SCH ×2 (07:43→17:08)
[2019-02-06] MEDS: Amiodarone 200 MG TAB PO SCH ×2 (09:32→20:30)
[2019-02-06] MEDS: Famotidine/PF 20 mg/2ml Vial SLOW IVP SCH (09:33)
[2019-02-06] MEDS: Enoxaparin Sodium 30 MG/0.3 ML SYRINGE SC SCH (09:33)
[2019-02-06] MEDS: levETIRAcetam In NaCl (Iso-Os) 1,000 MG in Premix Bag 1 BAG IVPB SCH ×2 (09:35→20:32)
[2019-02-06] MEDS: Bacitracin Zinc Ointment 30 gm TUBE TOP SCH ×3 (10:30→20:32)
[2019-02-06] MEDS: SODIUM CHLORIDE IV SCH (10:31)
[2019-02-06] MEDS: POTASSIUM CHLORIDE IV SCH (10:31)
[2019-02-06] MEDS: MULTIVITAMINS IV SCH (10:31)
[2019-02-06] MEDS ORDERED: Sterile Water 10 ML VIAL FS SCH (17:15)
[2019-02-06] MEDS: Ziprasidone 20 MG VIAL IM SCH (18:28)
[2019-02-07] MEDS: Meropenem 500 MG in Sodium Chloride 0.9% 100 ML IVPB SCH ×2 (02:54→14:00)
[2019-02-07] MEDS: Lorazepam 2 MG/ML VIAL SLOW IVP PRN ×4 (06:40→19:20)
[2019-02-07] MEDS ORDERED: Ziprasidone 20 MG VIAL IM PRN (08:27)
[2019-02-07] MEDS: Famotidine/PF 20 mg/2ml Vial SLOW IVP SCH (09:57)
[2019-02-07] MEDS: Amiodarone 200 MG TAB PO SCH ×2 (09:57→20:39)
[2019-02-07] MEDS: Potassium Chloride 20 MEQ TAB PO SCH ×2 (09:58→16:24)
[2019-02-07] MEDS: Bacitracin Zinc Ointment 30 gm TUBE TOP SCH ×3 (09:58→20:39)
[2019-02-07] MEDS: Enoxaparin Sodium 30 MG/0.3 ML SYRINGE SC SCH (09:59)
[2019-02-07] MEDS: levETIRAcetam In NaCl (Iso-Os) 1,000 MG in Premix Bag 1 BAG IVPB SCH ×2 (10:31→23:37)
[2019-02-07] MEDS: POTASSIUM CHLORIDE IV SCH (13:14)
[2019-02-07] MEDS: MULTIVITAMINS IV SCH (13:14)
[2019-02-07] MEDS: SODIUM CHLORIDE IV SCH (13:14)
[2019-02-07] MEDS: Ziprasidone 20 MG VIAL IM SCH (14:51)
[2019-02-07] MEDS ORDERED: Furosemide 40 MG/4 ML VIAL ONE (20:55)
[2019-02-07 21:09] LABS: Actual Bicarbonate (HCO3a) 30.1 mEq/L (22-28); CO2 Tension 46.4 mmHg (35.0-45.0); Hemoglobin (Hb) 12.7 g/dL (12.0-16.0); pH, Arterial 7.43 (7.35-7.45)
[2019-02-07 21:10] LABS: Analyzer IN Cardio OR; Calcium, Ionized 1.13 mmol/L (1.12-1.30); Carboxyhemoglobin (COHb) 0.9 gm% (0.0-3.0); Potassium - ABG Lab 5.12 mmol/L (3.70-5.30); Puncture Site LRA
[2019-02-07] MEDS ORDERED: Furosemide 40 MG/4 ML VIAL SLOW IVP SCH (21:15)
[2019-02-07] MEDS ORDERED: methylPREDNISolone Sod Succ/PF 125 MG/2 ML VIAL IVP SCH (21:15)
--- NOTE | 2019-02-07 21:21 | RAD ---
RADIOGRAPH CHEST 1 VIEW: DATE: 02/07/2019 TIME: 8:49 PM HISTORY: 73-year-old female in respiratory distress COMPARISON: 02/03/2019 FINDINGS: Multilead left subclavian AICD. No cardiomegaly. Interval improvement in aeration of bilateral lower lobes. Mild residual haziness in the lower lobes. High attenuation at the far medial bases of bilateral lower lobes. Blunting of lateral costophrenic angles remain bilaterally. No consolidation i n upper lobes. No pneumothorax. IMPRESSION: 1. Interval improvement in aeration of the bilateral lower lobes. Residual pulmonary densities in the lower lobes remain, presumably representing atelectasis although pneumonia cannot be excluded. 2. Residual small bilateral pleural effusions. 3. Automatic implantable cardioverter defibrillator.
[2019-02-07 22:24] LABS: CKMB 3.4 ng/mL (0-6.6)
[2019-02-08] MEDS: Meropenem 500 MG in Sodium Chloride 0.9% 100 ML IVPB SCH (02:56)
[2019-02-08 04:03] VITALS: TEMP 97.8
[2019-02-08 05:08] LABS: Anion Gap 19 mmol/L (10-20); BUN (Urea Nitrogen) 18 mg/dL (9.8-20.1); Calc. Creatinine Clearance 41 mL/min (70-130); Calcium 8.6 mg/dL (7.8-10.44); Carbon Dioxide 21 mmol/L (23-31); Chloride 98 mmol/L (98-107); Estimated GFR-MDRD 87; Glucose 145 mg/dL (83-110); Potassium 4.7 mmol/L (3.5-5.1); Sodium 133 mmol/L (136-145)
[2019-02-08] MEDS: Lorazepam 2 MG/ML VIAL SLOW IVP PRN (05:22)
[2019-02-08 07:25] LABS: #Lymphocytes 0.5 thou/uL (1.20-3.40); #Monocytes 0.4 thou/uL (0.11-0.59); %Basophils 0.1 % (0.0-1.0); %Eosinophils 0.7 % (0.0-10.0); %Neutrophils 86.1 % (42.0-75.0); Hemoglobin 11.7 g/dL (12.0-16.0); Mean Corpuscular HGB CONC 33.1 g/dL (32.0-36.0); Mean Corpuscular Hemoglobin 30.1 pg (27.0-31.0); Mean Corpuscular Volume 90.9 fL (78.0-98.0); Mean Platelet Volume 9.1 fL (7.4-10.4); Platelet Count 133 thou/uL (130-400); RBC Distribution Width 12.4 % (11.5-14.5); Red Blood Cell (RBC) Count 3.88 mill/uL (4.20-5.40); White Blood Cell (WBC) Count 6.9 thou/uL (4.8-10.8)
[2019-02-08 07:52] VITALS: BP 140/63
--- NOTE | 2019-02-08 07:57 | RAD ---
Exam: Chest one view HISTORY:Pneumonia Comparison: Chest radiograph, previous day FINDINGS: Lungs: Continued decrease of prior bibasilar parenchymal densities Cardiac silhouette:Stable enlargement Pulmonary vessels: Mild central prominence Pleural Spaces: Mild bilateral pleural fluid Pneumothorax: None Osseous abnormalities: None of acuity. IMPRESSION: Persistent mild bilateral pleural fluid and enlargement of cardiac silhouette, indicating CHF.
[2019-02-08] MEDS: Potassium Chloride 20 MEQ TAB PO SCH (09:58)
[2019-02-08] MEDS: levETIRAcetam In NaCl (Iso-Os) 1,000 MG in Premix Bag 1 BAG IVPB SCH (09:59)
[2019-02-08] MEDS: Amiodarone 200 MG TAB PO SCH (09:59)
[2019-02-08] MEDS: Famotidine/PF 20 mg/2ml Vial SLOW IVP SCH (09:59)
[2019-02-08] MEDS: Enoxaparin Sodium 30 MG/0.3 ML SYRINGE SC SCH (10:11)
--- NOTE | 2019-02-10 00:46 | PQF ---
JV CHASE MICHAEL E MD [id number] CLINICAL DOCUMENTATION CLARIFICATION FORM: POST DISCHARGE Addendum to original discharge summary date: ____ Late entry note date: __ Date: 02/10/19 ATTN: Renny Grullon Please exercise your independent, professional judgment in responding to the clarification form. Clinical indicators are provided on the bottom of this form for your review Can you please further specify the specificity of malnutrition? Please check appropriate box(s): [ x ] Protein Calorie Malnutrition: [ ] Mild [ ] Moderate [ x ] Severe [ ] Other Malnutrition (please specify) __ [ ] Underweight without malnutrition [ x ] Cachexia [ ] Other diagnosis please specify [ ] Unable to determine In addition, please specify: Present on Admission (POA): [ x ] Yes [ ] No [ ] Unable to determine CLINICAL INDICATORS - SIGNS / SYMPTOMS / LABS BMI 13 H and P pg.2- - very thin, cachectic female H and P pg.2- Temporal wasting noted H and P pg.2- with muscle wasting in upper and lower extremities Food and Nutrition Assessment 02/03- 8.9% weight loss in 2 months Food and Nutrition Assessment 02/03- severe muscle wasting observed suggestive of severe malnutrition in the context of chronic illness RISK FACTORS Medication non compliance-Food and Nutrition Assessment Long History Alcoholism-Food and Nutrition Assessment Seizure Disorder-Food and Nutrition Assessment TREATMENT: Nutritional Consult-Food and Nutrition Assessment 02/03 I and O monitoring Multivitamins 10ml in dextrose/Sodium chloride- [facility] 01/29 IV fluids- [facility] Moderate Malnutrition (in acute illness) Energy Intake: <75% of estimated energy requirement for > 7 days Weight Loss: 1-2%/1 week; 5%/ 1 month; 7.5%/3 months Other: mild body fat loss; mild muscle mass loss; mild fluid accumulation; Severe Malnutrition (in acute illness) Energy Intake: < 50% of estimated energy requirement for > 5 days Weight Loss: >1-2%/1 week; >5%/1 month; >7.5%/3 months Other: moderate body fat loss; moderate muscle mass loss; moderate- severe fluid accumulation; measurably reduced captain waiter/waitress strength Moderate Malnutrition (in chronic illness) Energy Intake: <75% of estimated energy requirement for >1 month Weight Loss: 5%/1 month; 7.5%/3 months; 10%/6 months; 20%/1 year Other: mild body fat loss; mild muscle mass loss; mild fluid accumulation Severe Malnutrition (in chronic illness) Energy Intake: <75% of estimated energy requirement for >1 month Weight Loss: >5%/1 month; >7.5%/3 months; >10%/6 months; >20%/1 year Other: severe body fat loss; severe muscle mass loss; severe fluid accumulation ; measurably reduced captain waiter/waitress strength (This form is maintained as a part of the permanent medical record) 2014 [employer]. All Rights Reserved Jamari [email or web address] [not provided] MTDD
--- NOTE | 2019-02-12 13:29 | EKG ---
Test Reason : STAT Blood Pressure : / mmHG Vent. Rate : 068 BPM Atrial Rate : 064 BPM P-R Int : 000 ms QRS Dur : 082 ms QT Int : 440 ms P-R-T Axes : 000 024 210 degrees QTc Int : 467 ms Junctional rhythm Septal infarct (cited on or before 06-JUN-2016) Abnormal ECG When compared with ECG of 29-JAN-2019 01:37, (Unconfirmed) Incomplete right bundle branch block is no longer Present Questionable change in initial forces of Anterior leads T wave inversion more evident in Lateral leads Confirmed by RADHA ANDUJAR (2) on 02/12/2019 1:29:36 PM Referred By: VIDAL CRUZ Confirmed By:RADHA ANDUJAR
== END 2019-02-08 11:49 | disposition home or self-care (01) | DRG 100 ==
LOC: ERS 00:53 → 2SE 04:30 → CCU 01-30 07:35 → IMCU/EMU 01-31 20:38 → ONC 02-03 12:01 → 2NO 02-07 21:43
PROVIDERS: ADMIT Specialist; ATTEND Specialist
PROC: 0BH17EZ Insertion of Endotracheal Airway into Trachea, Via Natural or Artificial Opening (ICD-10-PCS; principal; 2019-01-29)
PROC: 5A1945Z Respiratory Ventilation, 24-96 Consecutive Hours (ICD-10-PCS; 2019-01-29)
DX: G40.409 Other generalized epilepsy and epileptic syndromes, not intractable, without status epilepticus (principal); I21.A1 Myocardial infarction type 2; G93.41 Metabolic encephalopathy; J96.90 Respiratory failure, unspecified, unspecified whether with hypoxia or hypercapnia; J18.9 Pneumonia, unspecified organism; E43 Unspecified severe protein-calorie malnutrition; R64 Cachexia; Z68.1 Body mass index [BMI] 19.9 or less, adult; I42.8 Other cardiomyopathies; F05 Delirium due to known physiological condition; J44.0 Chronic obstructive pulmonary disease with (acute) lower respiratory infection; F41.1 Generalized anxiety disorder; F32.9 Major depressive disorder, single episode, unspecified; E78.5 Hyperlipidemia, unspecified; E03.9 Hypothyroidism, unspecified; E87.6 Hypokalemia; E11.9 Type 2 diabetes mellitus without complications; I25.10 Atherosclerotic heart disease of native coronary artery without angina pectoris; F17.290 Nicotine dependence, other tobacco product, uncomplicated; E78.00 Pure hypercholesterolemia, unspecified; F10.20 Alcohol dependence, uncomplicated; I48.91 Unspecified atrial fibrillation; F51.04 Psychophysiologic insomnia; I50.9 Heart failure, unspecified; I25.2 Old myocardial infarction; Z78.1 Physical restraint status; Z90.49 Acquired absence of other specified parts of digestive tract; Z88.2 Allergy status to sulfonamides; Z79.890 Hormone replacement therapy; Z79.01 Long term (current) use of anticoagulants; Z79.899 Other long term (current) drug therapy; Z91.14 Patient's other noncompliance with medication regimen; Z95.810 Presence of automatic (implantable) cardiac defibrillator; Z28.21 Immunization not carried out because of patient refusal
CPT/HCPCS: 36415; 36416; 51701; 70450; 71045; 80048; 80053; 80061; 80177; 80185; 80306; 81003; 81015; 82553; 82607; 82805; 83735; 83880; 84443; 84484; 84630; 85025; 87040; 87086; 92950; 93005; 93010; 93306; 94002; 94003; 94640; 96361; 96365; 96366; 96368; 96375; A4353; J0282; J0330; J0696; J1160; J1650; J1940; J1953; J2060; J2185; J2270; J2704; J3010; J3411; J3480; J3486; J3490; J7042; J7050; J7070; J7620; P9045; Q2009; S0028

== ENCOUNTER 2019-03-01 08:08 | Inpatient (IN) | payer MEDICARE ==
[2019-03-01 08:33] LABS: Actual Bicarbonate (HCO3a) 21.8 mEq/L (22-28); Analyzer IN Cardio ER; Base Excess (BEa) -6.6 mEq/L (-2.0 to +3.0); CO2 Tension 58.6 mmHg (35.0-45.0); Calcium, Ionized 0.94 mmol/L (1.12-1.30); Carboxyhemoglobin (COHb) 0.6 gm% (0.0-3.0); Hemoglobin (Hb) 9.8 g/dL (12.0-16.0); O2 Tension (PaO2) 351.1 mmHg (> 70.0); Potassium - ABG Lab 2.44 mmol/L (3.70-5.30)
[2019-03-01 08:34] LABS: pH, Arterial 7.19 (7.35-7.45)
[2019-03-01 08:34] LABS: Base Excess-Venous -5.2 mmol/L (-2.0 to 3.0); Bicarbonate (HCO3v) 24.2 mmol/L (22.0-28.0); CO2 Tension (PvCO2) 70.5 mmHg (40.0-50.0); Calcium, Ionized 0.89 mmol/L (See Comments:); Chloride 78 mmol/L (98-107); Glucose 51 mg/dL (83-110); Hemoglobin - Calc 9.1 g/dL (12.0-16.0); Lactate 12.26 mmol/L (0.50-2.20); Potassium 3.2 mmol/L (3.5-5.1); Sodium 121 mmol/L (138-145); T. Carbon Dioxide 26.3 mmol/L (22.0-28.0); vO2 Saturation-calc 87.3 % (60.0-85.0)
[2019-03-01 08:35] LABS: Puncture Site RFA
[2019-03-01 08:43] LABS: Hemoglobin 9.2 g/dL (12.0-16.0); Mean Corpuscular Hemoglobin 29.5 pg (27.0-31.0); Mean Corpuscular Volume 91.9 fL (78.0-98.0); Mean Platelet Volume 7.2 fL (7.4-10.4); Platelet Count 200 thou/uL (130-400); RBC Distribution Width 12.5 % (11.5-14.5); Red Blood Cell (RBC) Count 3.11 mill/uL (4.20-5.40); White Blood Cell (WBC) Count 13.8 thou/uL (4.8-10.8)
[2019-03-01 08:56] LABS: ALT (SGPT) 552 U/L (8-55); AST (SGOT) 1071 U/L (5-34); Alkaline Phosphatase 116 U/L (40-110); Anion Gap 28 mmol/L (10-20); BUN (Urea Nitrogen) 12 mg/dL (9.8-20.1); Bilirubin, Total 1.2 mg/dL (0.2-1.2); Calc. Creatinine Clearance 0 mL/min (70-130); Calcium 7.3 mg/dL (7.8-10.44); Carbon Dioxide 20 mmol/L (23-31); Chloride 81 mmol/L (98-107); Estimated GFR-MDRD 73; Globulin 2.3 g/dL (2.4-3.5); Lipase 24 U/L (8-78); Potassium 3.7 mmol/L (3.5-5.1); Protein, Total 5.3 g/dL (6.0-8.3); Sodium 125 mmol/L (136-145)
[2019-03-01 09:00] LABS: Glucose 54 mg/dL (83-110)
[2019-03-01] MEDS ORDERED: Dextrose 50% Abboject 50 ML SYRINGE ONE (09:00)
[2019-03-01] MEDS ORDERED: Dextrose 10% in Water 500 ML FS SCH (09:15)
[2019-03-01 09:23] LABS: Band 31 % (5-11); Burr Cells SLIGHT = 2-5 cells (100X) (0-1/hpf); Eosinophils 1 % (0-10); Lymphocytes 10 % (21-51); MDiff Complete? YES; Monocytes 6 % (0-10); Neutrophil 52 % (42-75); Platelet Morphology Comment Appears Adequate; Polychromasia SLIGHT = 2-3 cells (100X) (0-2/hpf)
[2019-03-01] MEDS ORDERED: Norepinephrine 4 MG/4 ML VIAL ONE (09:25)
[2019-03-01 09:30] LABS: Actual Bicarbonate (HCO3a) 19.1 mEq/L (22-28); Analyzer IN Cardio ER; Base Excess (BEa) -5.3 mEq/L (-2.0 to +3.0); CO2 Tension 32.6 mmHg (35.0-45.0); Calcium, Ionized 0.92 mmol/L (1.12-1.30); Carboxyhemoglobin (COHb) 0.6 gm% (0.0-3.0); O2 Tension (PaO2) 82.9 mmHg (> 70.0); Potassium - ABG Lab 2.66 mmol/L (3.70-5.30); pH, Arterial 7.39 (7.35-7.45)
[2019-03-01 09:31] LABS: Puncture Site LBA
[2019-03-01 10:32] LABS: Bilirubin Negative (Negative); Blood, Urine Negative (Negative); Clarity Clear (Clear); Glucose, Urine (Dipstick) 50 mg/dL (Negative); Leukocyte Negative Leu/uL (Negative); Nitrite Negative (Negative); Protein, Urine (Dipstick) 50 mg/dL (Neg-Trace); RBC/HPF 0-3 HPF (0-3); Squamous Epithelial 0-3 HPF (0-3); Urobilinogen Normal mg/dL (Less than 2); WBC/HPF 0-3 HPF (0-3)
[2019-03-01] MEDS ORDERED: Acetaminophen 650 MG Suppository PR PRN (10:32)
[2019-03-01] MEDS ORDERED: Norepinephrine 8 MG/0.9% NS 250 ML IVPB PRN (10:32)
[2019-03-01] MEDS ORDERED: CCU Electrolyte Replacement 1 EACH IVPB ONE (10:32)
[2019-03-01 10:36] LABS: Bacteria/HPF 1+ HPF (None Seen)
--- NOTE | 2019-03-01 10:41 | PDOC.OP ---
Operative Note - Operative Note Operative Note: INDICATION: Hypotension RESIDENT: Elizabeth Mcgrath MD PYG-2 ATTENDING PHYSICIAN: Dr. Adam Beaver CONSENT: The procedure was performed emergently and the permission was implied because of the emergent nature. PROCEDURE SUMMARY: Surgical cap, mask with protective eyewear, full gown and sterile gloves were worn throughout the procedure. LEFT chest region was prepped using chlorhexidine scrub and draped in sterile fashion using a full drape and sterile probe cover employed. The medial and lateral heads of the sternocleidomastoid muscle were identified. The Internal Jugular vein was identified using the ultrasound. Using real-time out of plane guidance, the introducer needle was inserted into the Internal Jugular vein under direct ultrasound visualization. Venous blood was withdrawn. The syringe was removed and a guidewire was advanced into the introducer needle. The guidewire was visualized in the Internal Jugular Vein by ultrasound. However guidewire was not able to be inserted smoothly despite several attempts due to resistance. Procedure was stopped and femoral line was pursued. The LEFT inguinal region was prepped using chlorhexidine scrub and draped in sterile fashion using a full drape and sterile probe cover employed. The femoral pulse was identified.Palpating the femoral pulse throughout the procedure as well as using ultrasound guidance, the introducer needle was inserted medial to the femoral artery, inferior to the inguinal crease and into the femoral vein. Venous blood was withdrawn. The syringe was removed and a guidewire was advanced into the introducer needle. A small incision was made at the skin surface with a scalpel and the introducer needle was exchanged for a dilator over the guidewire. After appropriate dilation was obtained, the dilator was exchanged over the wire for a 3 port central venous catheter. The wire was removed and the catheter was sutured in place. A sterile dressing was placed over the catheter at the insertion site. The patient tolerated the procedure without any hemodynamic compromise. At time of procedure completion, all ports aspirated and flushed properly. Estimated blood loss is 10ml.
[2019-03-01] MEDS ORDERED: Ventilator Sedation Protocol 1 EACH FS SCH (10:45)
[2019-03-01] MEDS ORDERED: Sodium Chloride 0.9% 1,000 ML IV SCH ×2 (10:45)
[2019-03-01] MEDS ORDERED: Potassium Chloride 40 MEQ in Sodium Chloride 0.9% 250 ML 250 ML IVPB SCH (10:45)
--- NOTE | 2019-03-01 10:45 | RAD ---
PORTABLE CHEST ONE VIEW: 03/01/2019 8:21 a.m. HISTORY: Respiratory failure. COMPARISON: 02/08/2019 FINDINGS: There has been placement of an endotracheal tube with the tip at the level of the clavicular heads. A left sided AICD is again seen. The heart size is borderline. The aorta is tortuous. The lungs are we ll expanded without lobar consolidation, pneumothoraces or pleural effusions. POS: [facility]
--- NOTE | 2019-03-01 11:00 | CT ---
CT BRAIN WITHOUT CONTRAST: Date: 03/01/19 HISTORY: Altered mental status. FINDINGS: Comparison made with exam of 01/29/19. Changes of chronic small vessel ischemic disease are again seen. The ventricular sizes are stable and the basilar cisterns are patent. No evidence of acute infarct, hemorrhage, midline shift, or abnorma l extra-axial fluid collections are seen. The bony calvarium is intact. The visualized paranasal sinu ses and mastoid air cells are well aerated. IMPRESSION: No CT evidence of acute intracranial process. POS: [facility]
[2019-03-01] MEDS ORDERED: Potassium Phosphate 15 MMOL in Sodium Chloride 0.9% 250 ML 250 ML IV PRN (11:01)
[2019-03-01] MEDS ORDERED: Potassium Phosphate 9 MMOL in Sodium Chloride 0.9% 100 ML IVPB PRN (11:01)
[2019-03-01] MEDS ORDERED: Potassium Chloride 40 MEQ in Premix Bag 1 BAG IVPB PRN (11:01)
[2019-03-01] MEDS ORDERED: Fentanyl BOLUS 250 ML IVPB PRN (11:01)
[2019-03-01] MEDS ORDERED: Potassium Phosphate 12 MMOL in Sodium Chloride 0.9% 250 ML 250 ML IV PRN (11:01)
[2019-03-01] MEDS ORDERED: Morphine 2 MG/ML SYRINGE SLOW IVP PRN (11:01)
[2019-03-01] MEDS ORDERED: Magnesium 2 GM/50 ML 2 GM in Premix Bag 1 BAG IVPB PRN (11:01)
[2019-03-01] MEDS ORDERED: Propofol BOLUS 1,000 MG/100 ML VIAL IV PRN (11:01)
[2019-03-01] MEDS ORDERED: Magnesium Oxide 400 MG TAB PO PRN ×2 (11:01)
[2019-03-01] MEDS ORDERED: CCU ELECTROLYTE REPLACEMENT PROTOCOL FS PRN (11:01)
[2019-03-01] MEDS ORDERED: PHOS-NAK 1 PKT PACK PO PRN ×2 (11:01)
[2019-03-01] MEDS ORDERED: Potassium Chloride 20 MEQ TAB PO PRN (11:01)
[2019-03-01] MEDS ORDERED: fentaNYL Citrate/PF 2,000 MCG in Sodium Chloride 0.9% 60 ML IV SCH (11:01)
[2019-03-01] MEDS ORDERED: DISCONTINUE PREVIOUS NARCOTIC PAIN MEDICATIONS AND BENZODIAZEPINES FS SCH (11:01)
[2019-03-01] MEDS ORDERED: Potassium Chloride 40 MEQ in Sodium Chloride 0.9% 250 ML 250 ML IVPB PRN (11:01)
--- NOTE | 2019-03-01 11:02 | CON ---
DATE OF CONSULTATION: 03/01/2019 TIME SPENT: This is 45 minutes of critical care time. CONSULTING PHYSICIAN: [facility]. REASON FOR CONSULTATION: Status post prolonged arrest. HISTORY OF PRESENT ILLNESS: The patient is a 73-year-old female, who was brought in a full arrest, apparently had a total downtime of around 40 minutes with pulseless electrical activity for return of spontaneous circulation. She is intubated and on mechanical ventilation. She apparently has a history of a seizure disorder. She has been hospitalized multiple times with seizures in the past. She has been followed by Dr. Nice in our practice in the past and had been just in the hospital a couple of weeks ago. PAST MEDICAL HISTORY: 1. COPD. 2. Hypertension. 3. Chronic liver disease. 4. Hypothyroidism. 5. Gastroesophageal reflux. 6. Anxiety. 7. Diabetes mellitus. 8. Tobacco abuse. PAST SURGICAL HISTORY: 1. . 2. Cholecystectomy. 3. Hysterectomy. MEDICATIONS: Prior to admission, according to the recent discharge summary, she was on; 1. Amiodarone 200 mg twice daily. 2. Namenda 5 mg twice daily. 3. Phenytoin 30 mg nightly. 4. Simvastatin 40 mg daily. 5. Levothyroxine 125 mcg daily. 6. Citalopram 60 mg daily. 7. Bupropion 300 mg daily. 8. Hydroxyzine 50 mg every 6 hours. 9. Mupirocin ointment. REVIEW OF SYSTEMS: Cannot be obtained as the patient is currently on mechanical ventilation. PHYSICAL EXAMINATION: VITAL SIGNS: Pulse is 66 and paced; blood pressure 85/65, currently on Levophed drip at 5 mcg/minute; respiratory rate 24, on mechanical ventilation. NEUROLOGICAL: She is obtunded and will not respond to deep painful stimuli. HEENT: Pupils are 5 mm, nonreactive to light. Sclerae are anicteric. Oropharynx clear. She has some repetitive gum smacking. NECK: No adenopathy or JVD. CHEST: Clear to auscultation anteriorly. CARDIOVASCULAR: S1 and S2, regular without murmur. ABDOMEN: Soft. No hepatosplenomegaly. EXTREMITIES: No clubbing, cyanosis, or edema. LABORATORY DATA: Sodium 121, potassium 3.2, chloride 78, CO2 of 20, BUN 12, creatinine 0.7, and glucose 51. White blood cell count 13.8, hematocrit 28.6, platelet count 200, with 53% neutrophils, 31% bands. PH of 7.39, pCO2 of 32, pO2 of 82 on assist-control rate 24, tidal volume 450, PEEP 5, and FiO2 of 30%. Her lactate was 12.6. Prolactin 36.7. Troponin 0.017. IMAGING DATA: Chest x-ray shows no mass, effusion, or infiltrate. Brain CT is nonfocal. ASSESSMENT: 1. Status post prolonged arrest, which I think is likely secondary to underlying seizure disorder. 2. Acute respiratory failure, requiring mechanical ventilation. 3. Hypotension secondary to volume depletion. 4. Rule out sepsis, given bandemia. PLAN: 1. The patient will be placed in the ICU. 2. We will try hypothermia, although I am not sure her vital signs will tolerate that. 3. Empiric antibiotics. 4. IV fluids. 5. Anticonvulsants as needed. Job ID: [id number]
[2019-03-01 11:53] LABS: Lactic Acid 8.8 mmol/L (0.5-2.2)
[2019-03-01] MEDS ORDERED: Lorazepam 2 MG/ML VIAL SLOW IVP PRN (13:19)
[2019-03-01] MEDS: Piperacillin/Tazobactam 3.375 GM in Sodium Chloride 0.9% 100 ML IVPB SCH ×3 (13:21→23:16)
[2019-03-01] MEDS ORDERED: Vecuronium 10 MG VIAL ONE (13:33)
[2019-03-01] MEDS: Dextrose 5 % And 0.9 % NaCl 1,000 ML IV SCH (13:50)
[2019-03-01 15:17] LABS: Lactic Acid 7.5 mmol/L (0.5-2.2)
[2019-03-01 15:26] LABS: Actual Bicarbonate (HCO3a) 22.9 mEq/L (22-28); Base Excess (BEa) 0.5 mEq/L (-2.0 to +3.0); CO2 Tension 29.4 mmHg (35.0-45.0); Calcium, Ionized 0.88 mmol/L (1.12-1.30); Carboxyhemoglobin (COHb) 1.1 gm% (0.0-3.0); Hemoglobin (Hb) 10.3 g/dL (12.0-16.0); O2 Tension (PaO2) 92.8 mmHg (> 70.0); Potassium - ABG Lab 3.36 mmol/L (3.70-5.30); pH, Arterial 7.51 (7.35-7.45)
[2019-03-01 15:34] LABS: Puncture Site L.B.
[2019-03-01] MEDS: Lorazepam 2 MG/ML VIAL SLOW IVP PRN ×2 (17:25→21:13)
--- NOTE | 2019-03-01 19:28 | HP ---
CHIEF COMPLAINT ON ADMISSION: Cardiac arrest with PEA and return of circulation. HISTORY OF PRESENT ILLNESS: The patient is a 73-year-old female, who was found down by her . EMS confirmed pulseless electrical activity, but not able to confirm pulse, return of circulation took approximately 40 minutes. EMS did CPR while in route and may have had CPR performed while her pulse was present. She was able to be revived in the emergency room, it was felt that this arrest was brought on by a seizure. She has a history of seizure. She has a history of noncompliance with medication and was last hospitalized 2 to 3 weeks ago for seizures again due to missing medication. There have been issues of malnutrition. Her weight is down to 78 pounds. APS was called in and cleared her to return home at the last hospitalization. She is currently intubated in ICU with stable vital signs while on Levophed. PAST MEDICAL HISTORY: Significant for; 1. Noncompliance with medication. 2. History of alcoholism. 3. Acute DE. 4. Hypothyroidism. 5. Hyperlipidemia. 6. Severe anxiety disorder. 7. Seizure disorder. 8. Depression. 9. Atrial fibrillation with RVR. 10. Chronic insomnia. PAST SURGICAL HISTORY: Includes; 1. Right femoral neck fracture in November 2018 with surgical intervention. 2. Cholecystectomy. 3. section. 4. Pacemaker placement. PAST PSYCHIATRIC HISTORY: Significant for anxiety and depression, both severe along with alcoholism. SOCIAL HISTORY: . Lives at home. Still drinks socially. Denies smoking or illicit drug use. ALLERGIES: SULFA. MEDICATIONS ON ADMISSION: Include; 1. Citalopram 40 mg daily. 2. Levothyroxine 125 mcg a day. 3. Temazepam 30 mg at bedtime. 4. Wellbutrin 300 mg daily. 5. Xanax 0.25 mg t.i.d. 6. Keppra 750 mg b.i.d. 7. Eliquis 2.5 mg b.i.d. 8. Zocor 40 mg at bedtime. 9. Carvedilol 3.125 mg b.i.d. 10. Hydroxyzine 50 mg q.6 hours p.r.n. severe anxiety. REVIEW OF SYSTEMS: Unable to obtain. The patient is currently intubated. Her usual historian is her , he is not present. PHYSICAL EXAMINATION: VITAL SIGNS: At the time of admission; blood pressure is 105/60, pulse 73. She is currently intubated. GENERAL: She is a cachectic elderly female. HEENT: Pupils are equal, round, reactive to light. Arcus senilis bilaterally. CHEST: Clear to auscultation. HEART: Regular rate and rhythm. ABDOMEN: Scaphoid unappreciated. No organomegaly noted. : Normal female. MUSCULOSKELETAL: Significant for muscular wasting in upper and lower extremities. SKIN: With signs of malnutrition. MUSCULOSKELETAL: Her coccyx has a stage 1 decubitus, back has a stage 3 decubitus, right buttock with DTI, left anterior ankle with skin tear, left hand with bruising, bilateral feet purple, bilateral lower extremity sores noted, bilateral heels purple with scabs, right side bruise, right and left sides with stage 1 early decubitus , left shoulder bruise, and left back bruise. NEUROLOGICAL: Unable to assess at this time. MENTAL STATUS: Has been significant with anxiety for years. LABORATORY DATA: Lab work on admission shows WBCs 13.8, hemoglobin 9.2, hematocrit 28.6 with platelets at 200. Sodium 125, potassium 3.7, chloride 81, CO2 of 20, BUN 12, creatinine 0.77 with blood sugar 54 initial. PH initially was 7.14 with pCO2 of 70 and pO2 of 70. TSH is at 7.5. ASSESSMENT: 1. Status post prolonged arrest possibly due to seizures. 2. Acute respiratory failure requiring mechanical ventilation. 3. Noncompliance with medication - recurrent seizures. 4. Possible sepsis. 5. Malnutrition. 6. Hyponatremia. 7. Hypothyroidism with evidence of noncompliance to medication. 8. Multiple sites of skin breakdown due to bedfast and malnutrition. PLAN: Supportive measures in ICU. Antibiotics have already been started. She is currently on Levophed to maintain her blood pressure. We will continue IV fluids and once the Keppra levels obtained, we may need to give her that anticonvulsant IV. We will serially re-evaluate her. Job ID: [id number] [facility]
[2019-03-01] MEDS: Propofol 1,000 MG/100 ML VIAL IV PRN (21:35)
[2019-03-01] MEDS: Famotidine/PF 20 mg/2ml Vial SLOW IVP SCH (21:35)
[2019-03-01] MEDS ORDERED: Norepinephrine 8 MG in Dextrose 5% in Water 242 ML IVPB PRN (23:17)
[2019-03-02] MEDS: Dextrose 5 % And 0.9 % NaCl 1,000 ML IV SCH ×3 (00:11→13:58)
--- NOTE | 2019-03-02 00:47 | CON ---
DATE OF CONSULTATION: 03/01/2019 HISTORY OF PRESENT ILLNESS: Ms. Sorensen came in under full arrest. She was down for at least 40 minutes prior to regaining pulse. She is now in a normal sinus rhythm. She is intubated and has some intermittent facial myoclonic movements. Doll's head maneuver is not intact. She has no pain response. Her EEG showed a burst-suppression pattern. Given the clinical findings, her prognosis is grave. I do not think there is any hope for clinical recovery. The family can make a decision as to her long-term management since she is not technically brain at this point. Job ID: [id number]
[2019-03-02 05:18] LABS: Band 46 % (5-11); Hemoglobin 9.5 g/dL (12.0-16.0); Lymphocytes 1 % (21-51); MDiff Complete? YES; Mean Corpuscular HGB CONC 33.4 g/dL (32.0-36.0); Mean Corpuscular Hemoglobin 29.9 pg (27.0-31.0); Mean Corpuscular Volume 89.6 fL (78.0-98.0); Mean Platelet Volume 7.2 fL (7.4-10.4); Metamyelocyte 1 % (0-0); Neutrophil 52 % (42-75); Platelet Count 156 thou/uL (130-400); RBC Distribution Width 12.4 % (11.5-14.5); Red Blood Cell (RBC) Count 3.17 mill/uL (4.20-5.40); White Blood Cell (WBC) Count 18.5 thou/uL (4.8-10.8)
[2019-03-02 05:52] LABS: ALT (SGPT) 2044 U/L (8-55); AST (SGOT) Greater than 3500 U/L (5-34); Alkaline Phosphatase 164 U/L (40-110); Anion Gap 16 mmol/L (10-20); BUN (Urea Nitrogen) 27 mg/dL (9.8-20.1); Bilirubin, Total 1.8 mg/dL (0.2-1.2); Calc. Creatinine Clearance 23 mL/min (70-130); Calcium 6.8 mg/dL (7.8-10.44); Carbon Dioxide 25 mmol/L (23-31); Chloride 90 mmol/L (98-107); Estimated GFR-MDRD 34; Globulin 2.1 g/dL (2.4-3.5); Glucose 249 mg/dL (83-110); Potassium 3.3 mmol/L (3.5-5.1); Protein, Total 5.1 g/dL (6.0-8.3); Sodium 128 mmol/L (136-145)
[2019-03-02] MEDS: Piperacillin/Tazobactam 3.375 GM in Sodium Chloride 0.9% 100 ML IVPB SCH ×4 (06:01→23:16)
[2019-03-02 06:40] LABS: Base Excess (BEa) -4.3 mEq/L (-2.0 to +3.0); CO2 Tension 52.7 mmHg (35.0-45.0); Calcium, Ionized 0.93 mmol/L (1.12-1.30); Hemoglobin (Hb) 10.3 g/dL (12.0-16.0); O2 Tension (PaO2) 95.8 mmHg (> 70.0); Potassium - ABG Lab 3.32 mmol/L (3.70-5.30); pH, Arterial 7.26 (7.35-7.45)
[2019-03-02 06:41] LABS: Puncture Site RBA
[2019-03-02 06:42] LABS: ALV-art Gradient 123.525 (0-20)
--- NOTE | 2019-03-02 08:08 | RAD ---
CHEST 1 VIEW: Date: 03/02/19 COMPARISON: 03/01/19. HISTORY: Respiratory failure. Ventilated patient. FINDINGS: Redemonstration of endotracheal tube, nasogastric tube, and a left-sided defibrillator. Atheroscleros is of aorta. Enlarged cardiac silhouette. Lungs are hyperinflated with chronic changes. No pneumothor ax on this supine position. IMPRESSION: No significant interval change. POS: OFF
--- NOTE | 2019-03-02 08:27 | PRG ---
DATE OF SERVICE: 03/02/2019 This is 45 minutes of critical care time. SUBJECTIVE: The patient remains in the CCU, intubated, and on mechanical ventilation. OBJECTIVE: VITAL SIGNS: Her temperature is 95.3, pulse 67, blood pressure 116/59, O2 saturation 100%. Intake since admission 2109, output 292. NEUROLOGIC: She will withdraw to painful stimuli in her hands and feet. She has jaw movements. She does have sluggish pupillary responses bilaterally. HEENT: Otherwise, unremarkable. NECK: No adenopathy or JVD. LUNGS: Clear to auscultation. CARDIAC: S1 and S2, regular without audible murmur. ABDOMEN: Soft and nontender. EXTREMITIES: Severe muscle wasting. LABORATORY DATA: White blood cell count 18.5, hematocrit 28.4, platelet count 156, with 52% neutrophils, 46% bands. PH 7.26, pCO2 of 52, pO2 of 95 that is on assist-control, rate 16, tidal volume 400, PEEP 5, and FiO2 of 40%. Sodium 128, potassium 3.3, chloride 90, CO2 of 25, BUN 27, creatinine 1.5, and glucose 249, AST greater than 3500, ALT 2044, calcium level 6.8, and albumin 3.0. Culture results are pending. ASSESSMENT: 1. Status post prolonged arrest, thought secondary to seizures. 2. Acute respiratory failure, requiring mechanical ventilation. 3. Anoxic encephalopathy. 4. Malnutrition. 5. Hyponatremia. 6. Hypothyroidism. 7. Protein-calorie malnutrition. 8. Possible concurrent sepsis syndrome. PLAN: 1. I am continuing supportive care with mechanical ventilation, adjusting the ventilator rate for respiratory acidosis. 2. Continue empiric antibiotics. 3. Continue vasopressors if needed. 4. Continue hypothermia up to 24 hours and then slowly begin warming, but try to prevent any fever above a temperature of 98.6. This patient's prognosis remains poor and there is probably a little hope for functional recovery. Job ID: [id number]
[2019-03-02] MEDS: Famotidine/PF 20 mg/2ml Vial SLOW IVP SCH (09:06)
[2019-03-02] MEDS ORDERED: FLU VACC TS2019-20(65YR UP)/PF 180 MCG/0.5 ML SYRINGE IM ONE (14:30)
[2019-03-02] MEDS: Propofol 1,000 MG/100 ML VIAL IV PRN (21:30)
[2019-03-03] MEDS: Dextrose 5 % And 0.9 % NaCl 1,000 ML IV SCH ×2 (04:47→13:09)
[2019-03-03 05:30] LABS: Band 23 % (5-11); Hemoglobin 9.1 g/dL (12.0-16.0); Lymphocytes 2 % (21-51); MDiff Complete? YES; Mean Corpuscular HGB CONC 33.4 g/dL (32.0-36.0); Mean Corpuscular Hemoglobin 29.8 pg (27.0-31.0); Mean Corpuscular Volume 89.2 fL (78.0-98.0); Mean Platelet Volume 7.7 fL (7.4-10.4); Metamyelocyte 1 % (0-0); Monocytes 1 % (0-10); Neutrophil 73 % (42-75); Platelet Count 110 thou/uL (130-400); Platelet Morphology Comment Appears Decreased; RBC Distribution Width 12.6 % (11.5-14.5); Red Blood Cell (RBC) Count 3.06 mill/uL (4.20-5.40); White Blood Cell (WBC) Count 13.3 thou/uL (4.8-10.8)
[2019-03-03 05:35] LABS: ALT (SGPT) 1878 U/L (8-55); AST (SGOT) 2610 U/L (5-34); Albumin 2.9 g/dL (3.4-4.8); Alkaline Phosphatase 162 U/L (40-110); Anion Gap 16 mmol/L (10-20); BUN (Urea Nitrogen) 35 mg/dL (9.8-20.1); Calc. Creatinine Clearance 18 mL/min (70-130); Calcium 6.9 mg/dL (7.8-10.44); Carbon Dioxide 23 mmol/L (23-31); Chloride 94 mmol/L (98-107); Estimated GFR-MDRD 23; Globulin 2.2 g/dL (2.4-3.5); Glucose 165 mg/dL (83-110); Protein, Total 5.1 g/dL (6.0-8.3); Sodium 129 mmol/L (136-145)
[2019-03-03 06:12] VITALS: BMI 17.3
[2019-03-03] MEDS: Piperacillin/Tazobactam 3.375 GM in Sodium Chloride 0.9% 100 ML IVPB SCH ×3 (06:12→17:37)
[2019-03-03 06:54] LABS: Base Excess (BEa) -1.5 mEq/L (-2.0 to +3.0); CO2 Tension 32.1 mmHg (35.0-45.0); Calcium, Ionized 0.88 mmol/L (1.12-1.30); Carboxyhemoglobin (COHb) 1.1 gm% (0.0-3.0); O2 Tension (PaO2) 131.8 mmHg (> 70.0); Potassium - ABG Lab 3.91 mmol/L (3.70-5.30); pH, Arterial 7.45 (7.35-7.45)
[2019-03-03 06:55] LABS: ALV-art Gradient 113.275 (0-20); Puncture Site RBA
--- NOTE | 2019-03-03 08:01 | RAD ---
PORTABLE CHEST 1 VIEW: Date: 03/03/19 Time: 0409 hours HISTORY: Respiratory failure. FINDINGS/IMPRESSION: Comparison made with exam from previous day. No significant interval change is seen. POS: [facility]
--- NOTE | 2019-03-03 08:38 | PRG ---
DATE OF SERVICE: 03/03/2019 35 minutes of critical care time. SUBJECTIVE: The patient remains intubated, comatose, and on mechanical ventilation. Neurologically, she has some spontaneous respirations, she also has chronic myoclonic jerking of her jaw, does not withdraw to any pain for stimuli that I have seen. OBJECTIVE: HEENT: Otherwise, unremarkable except for the tubes in Place. NECK: No JVD. LUNGS: Clear anteriorly. CARDIOVASCULAR: S1 and S2, regular. ABDOMEN: Soft. EXTREMITIES: She has purplish discoloration of her feet. LABORATORY DATA: Sodium 129, potassium 4.0, chloride 94, CO2 of 23, BUN 35, creatinine 2.1, glucose 165, AST 2610, ALT 1878, and albumin is 2.9. PH 7.45, pCO2 of 32, and pO2 of 131, on assist-control, rate 22, tidal volume 400, PEEP of 5, and FiO2 of 40%. White blood cell count 13.3, hematocrit 27.3, and platelet count 110. Chest x-ray shows no significant change. ASSESSMENT: 1. Status post prolonged arrest, thought originally secondary to seizure episode. 2. Acute respiratory failure, requiring mechanical ventilation. 3. 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 4. Malnutrition. 5. Hypothyroidism. PLAN: Discussed with Dr. Parish. I see no hope for reasonable recovery in this patient. I would advocate withdrawal of care into a hospice-type environment. In the meantime, while decisions are being made, she is receiving antibiotics for possible sepsis syndrome, there is no possibility of weaning the ventilator. Job ID: [id number]
[2019-03-03] MEDS: Famotidine/PF 20 mg/2ml Vial SLOW IVP SCH (08:44)
--- NOTE | 2019-03-03 09:17 | EEG ---
Referring Physician: Milagros NAVARRO EEG # [id number] TEST TYPE: ROUTINE PORTABLE INPATIENT REPORT: AN EEG USING THE INTERNATIONAL TEN-TWENTY SYSTEM OF ELECTRODE PLACEMENT WAS PERFORMED. The background activity consists of a burst-suppression pattern. There is generalized dysrhythmic activity seen intermixed with periods of diffuse suppression over both hemispheres. Photic stimulation was unremarkable. IMPRESSION: THIS IS AN ABNORMAL STUDY FOR THE FINDINGS OF A BURST-SUPPRESSION PATTERN CONSISTENT WITH A SEVERE DIFFUSE NEURONAL INJURY. Import Clerk: KIAH Janitor And Cleaner: EEG.TOMAS REYNOSO
[2019-03-03] MEDS ORDERED: Pancrelipase DR 12000 1 CAP FS PRN (09:47)
[2019-03-03] MEDS ORDERED: Sodium Bicarbonate Tab 325 MG TAB PER TUBE PRN (09:47)
[2019-03-03] MEDS: Propofol 1,000 MG/100 ML VIAL IV PRN (17:57)
[2019-03-04] MEDS: Piperacillin/Tazobactam 3.375 GM in Sodium Chloride 0.9% 100 ML IVPB SCH ×2 (00:12→05:56)
[2019-03-04] MEDS: Dextrose 5 % And 0.9 % NaCl 1,000 ML IV SCH (00:16)
[2019-03-04 05:06] LABS: Band 22 % (5-11); Elliptocytes SLIGHT = 2-5 cells (100X) (0-1/hpf); Hemoglobin 8.4 g/dL (12.0-16.0); Hypochromia SLIGHT = 6-15 cells (100X) (0-5/hpf); Lymphocytes 3 % (21-51); MDiff Complete? YES; Mean Corpuscular HGB CONC 33.7 g/dL (32.0-36.0); Mean Platelet Volume 7.6 fL (7.4-10.4); Metamyelocyte 2 % (0-0); Monocytes 3 % (0-10); Neutrophil 70 % (42-75); Platelet Count 75 thou/uL (130-400); Platelet Morphology Comment Appears Decreased; RBC Distribution Width 12.7 % (11.5-14.5); White Blood Cell (WBC) Count 10.3 thou/uL (4.8-10.8)
[2019-03-04 05:27] LABS: ALT (SGPT) 1260 U/L (8-55); AST (SGOT) 1002 U/L (5-34); Albumin 2.7 g/dL (3.4-4.8); Alkaline Phosphatase 192 U/L (40-110); Anion Gap 18 mmol/L (10-20); BUN (Urea Nitrogen) 42 mg/dL (9.8-20.1); Bilirubin, Total 1.5 mg/dL (0.2-1.2); Calc. Creatinine Clearance 13 mL/min (70-130); Calcium 6.7 mg/dL (7.8-10.44); Carbon Dioxide 20 mmol/L (23-31); Chloride 99 mmol/L (98-107); Estimated GFR-MDRD 17; Globulin 2.4 g/dL (2.4-3.5); Glucose 198 mg/dL (83-110); Potassium 4.1 mmol/L (3.5-5.1); Protein, Total 5.1 g/dL (6.0-8.3); Sodium 133 mmol/L (136-145)
[2019-03-04] MEDS: Propofol 1,000 MG/100 ML VIAL IV PRN (06:04)
[2019-03-04 06:24] VITALS: TEMP 101
[2019-03-04 07:09] VITALS: BP 127/82
[2019-03-04 07:16] LABS: Actual Bicarbonate (HCO3a) 19.4 mEq/L (22-28); Base Excess (BEa) -5.6 mEq/L (-2.0 to +3.0); CO2 Tension 35.7 mmHg (35.0-45.0); Calcium, Ionized 0.93 mmol/L (1.12-1.30); Carboxyhemoglobin (COHb) 1.4 gm% (0.0-3.0); Hemoglobin (Hb) 9.3 g/dL (12.0-16.0); O2 Tension (PaO2) 93.5 mmHg (> 70.0); Potassium - ABG Lab 3.87 mmol/L (3.70-5.30); pH, Arterial 7.35 (7.35-7.45)
[2019-03-04 07:17] LABS: Puncture Site LRA
[2019-03-04 07:18] LABS: ALV-art Gradient 147.075 (0-20)
[2019-03-04] MEDS: Famotidine/PF 20 mg/2ml Vial SLOW IVP SCH (07:49)
--- NOTE | 2019-03-04 08:25 | RAD ---
Exam: Chest one view: HISTORY: Respiratory insufficiency COMPARISON: 03/03/2019 FINDINGS: Stable life-support tubes. Minimal cardiomegaly with bilateral vascular congestion increased linear i nterstitial markings bilaterally but stable. Stable left ICD. IMPRESSION: Stable appearance of the chest. Continued short-term follow-up.
--- NOTE | 2019-03-04 09:52 | PRG ---
DATE OF SERVICE: 03/04/2019 SUBJECTIVE: Padmini Sorensen remains in the vent, intubated. Pretty much unresponsive. She is on low-dose propofol. She had an EEG done yesterday, which shows abnormal consistent with severe anoxic injury. Awaiting family members arrival. She is a DNR at this stage. OBJECTIVE: GENERAL: She is cachectic. VITAL SIGNS: Blood pressure 130/71, pulse 84, respirations 20, saturations 100%, afebrile. CHEST: Rhonchi. Crackles. CARDIAC: Normal S1 and S2. No gallops. ABDOMEN: Soft. HEENT: Pupils are dilated. LABORATORY DATA: White count 10,000, H and H of 8 and 24, and platelet count is low 75. PO2 is 93, pCO2 is . Creatinine 2.72, AST markedly elevated. ASSESSMENT: 1. Anoxic injury. 2. Prolonged cardiopulmonary resuscitation. 3. Hepatic injury. 4. Renal failure. 5. Cachexia. 6. Seizure disorders. PLAN: Await family input. Prognosis is grave. Comfort care for the time being. I will discuss with family when they arrive. One-half hour of critical time. Job ID: [id number]
[2019-03-04] MEDS ORDERED: Lorazepam 2 MG/ML VIAL SLOW IVP PRN (10:41)
[2019-03-04] MEDS ORDERED: DC Sedation Protocol FS ONE (10:41)
[2019-03-04] MEDS ORDERED: Morphine 4 MG/ML VIAL ONE (11:35)
[2019-03-04] MEDS ORDERED: Morphine 4 MG/ML VIAL SLOW IVP PRN (11:39)
--- NOTE | 2019-03-06 13:02 | DIS ---
DATE OF ADMISSION: 03/01/2019 DATE OF DISCHARGE: 03/04/2019 DATE OF EXPIRATION: 03/04/2019. CHIEF COMPLAINT: On admission was cardiac arrest with pulseless electrical activity and return of circulation. The history and physical had been dictated so I will resume from there. HOSPITAL COURSE: The patient was transferred from the emergency room into ICU, where she remained on the ventilator for supportive measures. She required Levophed to keep the blood pressure up. She did not show improvement over the first 24 hours. Her blood pressure however was able to be maintained at 113/73 with a pulse of 65. Cooling blankets were used initially, were then withheld. On her exam on 03/02/2019, she had diffuse rhonchi, pH at that time on ABG was 7.26, pCO2 of 52 , pO2 of 95.8. An EEG was performed, which yielded a burst suppression pattern indicating a very poor prognosis. The patient was felt to be septic. The family was counseled and a Palliative Care consult was requested. On 03/03, the patient remained intubated, afebrile, blood pressure 126/85. Her white count improved somewhat and her breath sounds minimally improved, but neurologically she was completely unresponsive to all stimuli and remained in complete respiratory failure. Her prognosis remains very poor, was ill and unable to be reached at that time. It was felt that it would be prudent to marriage and family counselor him concerning her code status. We were finally able to do this on 03/04, where she remained intubated and sedated to suppress jerking activity. Her code status was changed to DNR on that day and the family arrived later that day and decided to take her off life support, knowing that is probably not something she would prefer and the patient quickly after life support was removed. She was pronounced at 11:58 on 03/04/2019. The family was contacted and requested that the patient's body be released to [facility]. DIAGNOSES: At the time of demise was 1) acute respiratory failure, 2) status post cardiac arrest. This was felt probably be due to 3) seizure, prolonged downtime with 4) pulseless electrical activity, 5) renal failure, 6) severe anoxic encephalopathy, and 7) malnutrition. Time required to review chart and dictate came to 30 minutes. Job ID: [id number] [facility]
--- NOTE | 2019-03-21 23:07 | PQF ---
JV CHASE MICHAEL E MD [id number] CCU-C01 [id number] CLINICAL DOCUMENTATION CLARIFICATION FORM: POST DISCHARGE Addendum to original discharge summary date: ____ Late entry note date: __ DATE:03/21/2019 ATTN:RENNY CRUZ MD Please exercise your independent, professional judgment in responding to the clarification form. Clinical indicators are provided on the bottom of this form for your review Please check appropriate box(s) to clarify if the following diagnosis has been ruled in or ruled out:Sepsis [ ] Ruled in diagnosis [ ] Continue to treat [ ] Resolved [ ] Ruled out diagnosis [ x ] Cannot rule out diagnosis [ ] Other diagnosis [ ] Unable to determine In addition, please specify: Present on Admission (POA): [ x ] Yes [ ] No [ ] Unable to determine For continuity of documentation, please document condition throughout progress notes and discharge summary. Thank You. CLINICAL INDICATORS - SIGNS / SYMPTOMS / LABS BP-52/41,Ykmu-85-Itwfrkdwbz in ED on 03/01 by Freddy Olivarez Acidosis, Hypotension-Documented in ED on 03/01 by Freddy Olivarez Acute respiratory failure-Documented in H&P on 03/01 by Renny Cruz Possible sepsis-Documented in H&P on 03/01 by Renny Cruz WBC-18.5-Documented in laboratory She is receiving antibiotics for possible sepsis syndrome-Documented in PN on by Adam Beaver RISK FACTORS Acute respiratory failure-Documented in H&P on 03/01 by Renny Cruz TREATMENTS Continue empiric antibiotics-Documented in PN on 03/02 by Adam Beaver SAP Cross Roller Crystal Reports Winform Viewer (This form is maintained as a part of the permanent medical record) 2014 [employer]. All Rights Reserved [email or web address] [not provided] MTDD
--- NOTE | 2019-03-28 08:19 | PQF ---
SAP Folded Towel Machine Operator Crystal Reports Winform ViewerTUBBSJV RENNY PARISH MD [id number] [facility]-C01 [id number] CLINICAL DOCUMENTATION CLARIFICATION FORM: POST DISCHARGE Addendum to original discharge summary date: ____ Late entry note date: __ Date:03/28/2019 ATTN: RENNY PARISH MD Please exercise your independent, professional judgment in responding to the clarification form. Clinical indicators are provided on the bottom of this form for your review Please check appropriate box(s): [ ] Mild protein Calorie Malnutrition [ x ] Moderate protein Calorie Malnutrition [ ] Severe protein Calorie Malnutrition [ ] Other diagnosis [ ] Unable to determine CLINICAL INDICATORS - SIGNS / SYMPTOMS / LABS There have been issue of malnutrition.Her weight is down to 78 pounds- Documented in H&P on 03/01 by Renny Parish Malnutrition-Documented in H&P on 03/01 by Renny Parish Multiple sites of skin breakdown due to bedfast and malnutrition-Documented in H &P on 03/01 by Renny Parish She is a cachectic elderly causian female-Documented in H&P on 03/01 by Renny Parish Hypothyroidism-Documented in H&P on 03/01 by Renny Parish Protein Calorie Malnutrition-Documented in PN on 03/02 by Freya Beaver BMI-16.4- Documented in FNS assessment Albumin-3.0-Documented in Laboratory Calcium-6.8-Documented in Laboratory RISK FACTORS Hypothyroidism-Documented in H&P on 03/01 by Renny Parish TREATMENT: Diet Order-NPO/TF- Documented in FNS assessment CCU electrolyte replacement 1 each IVPB-Medication Snapshot Moderate Malnutrition (in acute illness) Energy Intake: <75% of estimated energy requirement for > 7 days Weight Loss: 1-2%/1 week; 5%/ 1 month; 7.5%/3 months Other: mild body fat loss; mild muscle mass loss; mild fluid accumulation; Severe Malnutrition (in acute illness) Energy Intake: < 50% of estimated energy requirement for > 5 days Weight Loss: >1-2%/1 week; >5%/1 month; >7.5%/3 months Other: moderate body fat loss; moderate muscle mass loss; moderate- severe fluid accumulation; measurably reduced columnist strength Moderate Malnutrition (in chronic illness) Energy Intake: <75% of estimated energy requirement for >1 month Weight Loss: 5%/1 month; 7.5%/3 months; 10%/6 months; 20%/1 year Other: mild body fat loss; mild muscle mass loss; mild fluid accumulation Severe Malnutrition (in chronic illness) Energy Intake: <75% of estimated energy requirement for >1 month Weight Loss: >5%/1 month; >7.5%/3 months; >10%/6 months; >20%/1 year Other: severe body fat loss; severe muscle mass loss; severe fluid accumulation ; measurably reduced columnist strength (This form is maintained as a part of the permanent medical record) 2014 [employer]. All Rights Reserved [email or web address] [not provided] [email or web address]
--- NOTE | 2019-03-28 08:47 | PQF ---
JV CHASE MICHAEL E MD [id number] CCU-C01 [id number] CLINICAL DOCUMENTATION CLARIFICATION FORM: POST DISCHARGE Addendum to original discharge summary date: ____ Late entry note date: __ DATE:03/28/2019 ATTN: RENNY CRUZ MD Please exercise your independent, professional judgment in responding to the clarification form. Clinical indicators are provided on the bottom of this form for your review Please check appropriate box(s): [ x ] Acute Renal Failure (ARF) / Acute Kidney Injury (NINFA) [ ] Acute Tubular Necrosis (ATN) [ ] Acute Cortical Necrosis [ ] Acute Medullary Necrosis [ ] Other Etiology or underlying conditions related to the diagnosis of ARF/ NINFA: [ ] Acute Interstitial Nephritis (AIN) [ ] Other: [ ] Acute on Chronic Renal Failure please specify Stage of CKD (see below) [ ] CKD without ARF/NINFA please specify Stage of CKD [ ] ESRD [ ] Other diagnosis [ ] Unable to determine National Kidney Foundation Guidelines for CKD Staging Stage I Kidney damage with normal or increased GFRGFR > 90 Stage IIKidney damage with mildly decreased GFRGFR 60-89 Stage III Kidney damage with moderately decreased GFRGFR 30-59 Stage IVKidney damage with severely decreased GFRGFR 16-29 Stage VKidney failureGFR<15 ESRDEnd Stage Renal DiseaseOn dialysis Acute Renal Failure/Acute Kidney Failure defined as: Increases in SCr by (>) 0.3 mg/dl within 48 hours OR- Increases in SCr by (>) 1.5 times baseline, known or presumed to have occurred within the prior 7 days OR- Urine volume < 0.5 ml/kg/hour for 6 hours (KDIGO supplement 2012 for RIFLE/YESENIA criteria) For continuity of documentation, please document condition throughout progress notes and discharge summary. Thank You. CLINICAL INDICATORS - SIGNS / SYMPTOMS / LABS Hypotension-Documented in ED on 03/01 by Freddy Olivarez Hypotension secondary to volume depletion-Documented in Consultation on 03/01 by Adam Beaver MD Hyponatremia-Documented in H&P on 03/01 by Renny Cruz Renal failure-Documented in Discharge summary on 03/04 by Jem Lawson Sepsis cannot rule out diagnosis-Documented in Query response on 03/22/2019 by Renny Cruz Creatinine-2.72,MJR-72-Jdnfzyrykf in Laboratory Estimated GFR-34 on 03/02 Estimated GFR-23 on 03/03,Estimated GFR-17 on 03/04- Documented in Laboratory RISK FACTORS Hypotension secondary to volume depletion-Documented in Consultation on 03/01 by Adam Beaver MD Hyponatremia-Documented in H&P on 03/01 by Renny Cruz Sepsis cannot rule out diagnosis-Documented in Query response on 03/22/2019 by Renny Cruz TREATMENTS: We will continue IV Fluids-Documented in H&P on 03/01 by Renny Cruz (This form is maintained as a part of the permanent medical record) 2014 [employer]. All Rights Reserved [email or web address] [email or web address] [not provided] MTDD
== END 2019-03-04 11:58 | disposition expired | DRG 100 ==
LOC: ERS 08:08 → CCU 08:17
PROVIDERS: ADMIT Specialist; ATTEND Specialist
PROC: 5A1945Z Respiratory Ventilation, 24-96 Consecutive Hours (ICD-10-PCS; principal; 2019-03-01)
PROC: 05HN33Z Insertion of Infusion Device into Left Internal Jugular Vein, Percutaneous Approach (ICD-10-PCS; 2019-03-01)
PROC: B544ZZA Ultrasonography of Left Jugular Veins, Guidance (ICD-10-PCS; 2019-03-01)
DX: G40.909 Epilepsy, unspecified, not intractable, without status epilepticus (principal); A41.9 Sepsis, unspecified organism; J96.00 Acute respiratory failure, unspecified whether with hypoxia or hypercapnia; E87.1 Hypo-osmolality and hyponatremia; Z68.1 Body mass index [BMI] 19.9 or less, adult; G93.1 Anoxic brain damage, not elsewhere classified; E87.2 Acidosis; E44.0 Moderate protein-calorie malnutrition; N17.9 Acute kidney failure, unspecified; E78.5 Hyperlipidemia, unspecified; Z51.5 Encounter for palliative care; E03.9 Hypothyroidism, unspecified; I95.9 Hypotension, unspecified; Z66 Do not resuscitate; I46.9 Cardiac arrest, cause unspecified; F41.9 Anxiety disorder, unspecified; R40.2432 Glasgow coma scale score 3-8, at arrival to emergency department; F32.9 Major depressive disorder, single episode, unspecified; I48.91 Unspecified atrial fibrillation; G47.00 Insomnia, unspecified; Z95.0 Presence of cardiac pacemaker; Z90.49 Acquired absence of other specified parts of digestive tract; Z91.14 Patient's other noncompliance with medication regimen; N19 Unspecified kidney failure; Z88.2 Allergy status to sulfonamides; I25.2 Old myocardial infarction
CPT/HCPCS: 36416; 36556; 51702; 70450; 71045; 80053; 80177; 81003; 81015; 82330; 82803; 82805; 83605; 83690; 84146; 84443; 84484; 85007; 85025; 85027; 87040; 93005; 94002; 94003; 95816; 95819; 96361; 96365; 96366; 96375; 99292; J2060; J2270; J2543; J2704; J3480; J3490; J7050; J7070; J7620; S0028